=== PATIENT | male | born 1930 | race Caucasian/White ===

== ENCOUNTER 2016-09-18 13:24 | Observation (INO) | payer MEDICARE ==
[2016-09-18 14:18] LABS: BASOPHILS 0.7 % (0.0-2.0); EOSINOPHILS 2.3 % (0.0-6.0); EOSINOPHILS# 0.2 X 10^3uL (0.0-0.4); HEMATOCRIT 37.5 % (42.0-54.0); HEMOGLOBIN 12.5 g/dL (14.0-18.0); LYMPHOCYTES# 0.7 X 10^3uL (0.8-3.8); MEAN CORPUS. HGB CONCENTRATION 33.3 g/dL (32.0-36.0); MEAN PLATELET VOLUME 8.5 fL (7.4-10.4); MONOCYTES 9.7 % (2.0-10.0); MONOCYTES# 0.6 X 10^3uL (0.2-1.0); NEUTROPHILS 77.3 % (54.0-75.0); NEUTROPHILS# 5.2 X 10^3uL (2.6-6.7); PLATELET COUNT 218 X 10^3uL (130-440); RED BLOOD COUNT 4.31 X 10^6uL (4.20-6.10); RED CELL DISTRIBUTION WIDTH 16.5 % (11.5-14.5); WHITE BLOOD COUNT 6.7 X 10^3uL (3.9-10.7)
--- NOTE | 2016-09-18 14:19 | RADIOLOGY REPORT ---
HISTORY: Shortness of breath and cough. COMPARISON: None available. FINDINGS: Single frontal view of the chest obtained. There is bilateral parenchymal consolidation most pronounced in the left lower lobe. No large effusio n or pneumothorax. There has been previous thoracotomy. Cardiac silhouette is within normal limits fo r size and trachea is midline. IMPRESSION: 1. Bilateral parenchymal consolidation. Final Electronic Signature: This report was electronically signed by Jakob Avalos MD on 09/18/2016 2:17 PM. cee /
[2016-09-18 14:35] LABS: BLOOD UREA NITROGEN 31 mg/dL (9-20); CHLORIDE 107 mmol/L (98-107); CREATININE 1.1 mg/dL (0.7-1.3); GLUCOSE 113 mg/dL (70-100); POTASSIUM 4.3 mmol/L (3.5-5.1); SODIUM 141 mmol/L (137-145)
[2016-09-18 14:45] LABS: INR 3.2
[2016-09-18 15:06] LABS: TROPONIN I 0.075 ng/mL (0.00-0.034)
[2016-09-18] MEDS ORDERED: HOME MEDICATION LIST NEEDED 1 EA EACH MC ONE ×2 (16:14)
[2016-09-18] MEDS ORDERED: ACETAMINOPHEN 325 MG TABLET PO PRN (16:14)
[2016-09-18] MEDS ORDERED: FUROSEMIDE 20 MG/2 ML VIAL ONE (16:20)
--- NOTE | 2016-09-18 17:01 | ER PHYSICIAN DOCUMENTATION ---
Physician Documentation [facility] Name:Reddy Mello Age:85 yrs Sex:Male :1930 Arrival Date:09/18/2016 Time:13:24 BedTrauma C Private MD:Mike Bhakta ED, Scott Disposition: 09/18 16:02 Critical Care: not applicable. tx Disposition: 09/18/16 16:05 Admit ordered for Rupali Thompson. Preliminary diagnosis are Hypoxia, CHF (Congestive Heart Failure). - Bed requested for Medical/Surgical. - Condition is Good. - Problem is new. - Symptoms are unchanged. 23 HR OBS No HPI: 15:49 This 85 yrs old Male presents to ER via Private Vehicle with complaints of sc FLU SYMPTOMS, Chest Pain. 15:49 The patient or guardian reports chest pain that is located primarily in the left sc lateral anterior chest. Onset: 2 day(s) ago. The pain does not radiate. The pain has moved or radiated since the onset. with inspiration. Associated signs and symptoms: Pertinent positives: cough, Pertinent negatives: diaphoresis, dizziness, lower extremity pain, lower extremity swelling, lightheadedness, nausea, palpitations, recent travel. The chest pain is described as sharp. Duration: The patient or guardian reports a single episode, that is still ongoing. Historical: - Allergies: PENICILLINS; Ativan; - Home Meds: 1. Metoprolol Tartrate Oral 2. Fish Oil oral 3. Probiotic Complex oral 4. CoQ-10 oral 5. Lasix Oral 6. Lipitor Oral 7. Prednisone Oral 8. warfarin 2.5 mg oral tab 1 tab once daily 9. Zetia Oral 10. aspirin 81 mg oral tab 1 tab once daily - PMHx: hyperlipidemia; heart disease; polymyalgia; - Tetanus: < 10 years. - Ebola Screening: : Patient denies exposure to infectious person. Patient denies travel to an Ebola-affected area in the 21 days before illness onset. . - Immunization history: Flu Vaccine < 1 year. - Social history: Smoking status: Patient states was never smoker of tobacco. Patient uses alcohol but reports only rare drinking. Patient/guardian denies using marijuana. ROS: 15:55 Constitutional: Negative for fever, chills, and weight loss. sc Eyes: Negative for injury, pain, redness, and discharge. ENT: Negative for injury, pain, and discharge. Neck: Negative for injury, pain, and swelling. Abdomen/GI: Negative for abdominal pain, nausea, vomiting, diarrhea, and constipation. Back: Negative for injury and pain. MS/Extremity: Negative for injury and deformity. Skin: Negative for injury, rash, and discoloration. 15:55 Neuro: Negative for headache, weakness, numbness, tingling, and seizure. sc 15:55 Cardiovascular: Positive for chest pain, with cough, with movement. Exam: Head/Face: Normocephalic, atraumatic. Eyes: Pupils equal round and reactive to light, extra-ocular motions intact. Lids and lashes normal. Conjunctiva and sclera are non-icteric and not injected. Cornea within normal limits. Periorbital areas with no swelling, redness, or edema. ENT: Nares patent. No nasal discharge, no septal abnormalities noted. Tympanic membranes are normal and external auditory canals are clear. Oropharynx with no redness, swelling, or masses, exudates, or evidence of obstruction, uvula midline. Mucous membranes moist. Neck: Trachea midline, no thyromegaly or masses palpated, and no cervical lymphadenopathy. Supple, full range of motion without nuchal rigidity, or vertebral point tenderness. No meningismus. Chest/axilla: Normal chest wall appearance and motion. Nontender with no deformity. No lesions are appreciated. Cardiovascular: Regular rate and rhythm with a normal S1 and S2. No gallops, murmurs, or rubs. Normal PMI, no JVD. No pulse deficits. Abdomen/GI: Soft, non-tender, with normal bowel sounds. No distension or tympany. No guarding or rebound. No evidence of tenderness throughout. Back: No spinal tenderness. No costovertebral tenderness. Full range of motion. 15:56 Skin: Warm, dry with normal turgor. Normal color with no rashes, no lesions, and no sc evidence of cellulitis. 15:56 Constitutional: The patient appears alert, awake. 15:56 Respiratory: mild respiratory distress is noted, Respirations: normal, Breath sounds: rhonchi, decreased breath sounds, that are moderate, are heard in the left lower lobe. 16:05 Cardiovascular: Rate: normal, Rhythm: irregularly irregular. sc Vital Signs: 13:25 BP 115 / 64; Pulse 78; Temp 97.4; Pulse Ox 82% on R/A; st 14:40 Pulse Ox 96% on 5 lpm NC; st 15:14 BP 97 / 46; Pulse 74; Resp 17; Pulse Ox 93% on 5 lpm NC; st 15:30 BP 114 / 61; Pulse 74; Resp 21; st 16:00 BP 104 / 59; Pulse 77; Pulse Ox 96% on 5 lpm NC; st 16:30 BP 110 / 59; Pulse 75; Pulse Ox 95% on 5 lpm NC; st MDM: 13:29 Patient medically screened. tx 13:43 ECG:. tx 16:00 Differential diagnosis: abnormal EKG, acute myocardial infarction, costochondritis, sc gastritis, gastroesophageal reflux disease (GERD), mitral valve prolapse, pleurisy, pneumonia. The patient was not given aspirin in the Emergency Department as patient refused. Patient did not receive fibrinolytic due to not indicated. Data reviewed: and as a result, I will admit patient. Data interpreted: youth nutritional monitor: rate is 80 beats/min, rhythm is normal sinus rhythm, atrial fibrillation. 17:15 EKG attached 09/18 14:42 Order name: CBC AUTO DIF, MDIF/RMOR IF IND [facility] 09/18 14:44 Interpretation: Normal Except: HEMATOCRIT 37.5. tx 09/18 14:46 Order name: PROTIME/INR [facility] 09/18 14:47 Interpretation: Abnormal: INR 3.2; anticoagulated. tx 09/18 15:06 Order name: BASIC METABOLIC PANEL [facility] 09/18 15:35 Interpretation: Normal Except: BLOOD UREA NITROGEN 31. tx 09/18 15:06 Order name: BNP,NT-PRO [facility] 09/18 15:35 Interpretation: Abnormal: BNP,NT-PRO 5390. tx 09/18 15:06 Order name: TROPONIN I [facility] 09/18 15:35 Interpretation: Abnormal: TROPONIN I 0.075. tx 09/18 15:18 Order name: INFLUENZA A/B; Complete Time: 15:35 [facility] 09/18 15:35 Interpretation: Normal. tx 09/18 14:19 Order name: CHEST; SINGLE VIEW 22443; Complete Time: 14:46 [facility] 09/18 14:46 Interpretation: Abnormal. tx 09/18 13:40 Order name: Oxygen; Complete Time: 13:43 st 09/18 13:47 Order name: 12-lead EKG; Complete Time: 13:58 tx 09/18 13:47 Order name: Continuous Cardiac Monitoring; Complete Time: :58 tx 09/18 13:47 Order name: I & O; Complete Time: 14:20 tx 09/18 13:47 Order name: Iv Saline Lock; Complete Time: 14:23 tx 09/18 13:47 Order name: Pulse Ox Continuous; Complete Time: :58 tx EC:43 Rate is 80 beats/min. Rhythm is irregularly irregular, A fib with Left bundle branch sc block. QRS [place] is Normal. [place] interval is normal. QRS interval is prolonged. QT interval is normal. No Q waves. T waves are Normal. No ST changes noted. Clinical impression: Atrial Fibrillation. Interpreted by me. Reviewed by me. Dispensed Medications: 14:21 CANCELLED (wrong pt): oxyCODONE [address] 16:12 Drug: Lasix 20 mg; Route: IVP; Site: left antecubital; st 16:46 Follow up: pt urinating st Signatures: Ralph Fragoso RN RN tg Twombly, Summer, RN RN st Chew, Scott, MD MD tx
--- NOTE | 2016-09-18 17:01 | ER NURSING DOCUMENTATION ---
Nurse's Notes Name:Reddy Mello Age:85 yrs Sex:Male :1930 Arrival Date:09/18/2016 Time:13:24 BedTrauma C Private MD:Mike Bhakta Diagnosis:Hypoxia;CHF (Congestive Heart Failure) Presentation: 09/18 13:25 Presenting complaint: Patient states: pt has had a cough, lack of energy and SOB st increasing since Thursday. pt also states he has some left sided pain with cough. Transition of care: Home. AIR CAT ACTIVATION no. Asprin Given n/a. 13:25 Method Of Arrival: Private Vehicle st 13:26 Acuity: RADHA 2 st Triage Assessment: 13:25 General: Appears uncomfortable, Behavior is cooperative. Pain: Complains of pain in st left breast Pain currently is 1 out of 10 on a pain scale. Pain began 5 days worst with cough. Cardiovascular: Capillary refill < 3 seconds Heart tones present Murmur present. Respiratory: Airway is patent Respiratory effort is even, unlabored, Respiratory pattern is regular, symmetrical, Breath sounds are clear bilaterally. Historical: - Allergies: PENICILLINS; Ativan; - Home Meds: 1. Metoprolol Tartrate Oral 2. Fish Oil oral 3. Probiotic Complex oral 4. CoQ-10 oral 5. Lasix Oral 6. Lipitor Oral 7. Prednisone Oral 8. warfarin 2.5 mg oral tab 1 tab once daily 9. Zetia Oral 10. aspirin 81 mg oral tab 1 tab once daily - PMHx: hyperlipidemia; heart disease; polymyalgia; - Tetanus: < 10 years. - Ebola Screening: : Patient denies exposure to infectious person. Patient denies travel to an Ebola-affected area in the 21 days before illness onset. . - Immunization history: Flu Vaccine < 1 year. - Social history: Smoking status: Patient states was never smoker of tobacco. Patient uses alcohol but reports only rare drinking. Patient/guardian denies using marijuana. Screenin:25 Infectious Disease Risk None. Abuse screen: Denies threats or abuse. Denies injuries st from another. Nutritional screening: No deficits noted. Assessment: 15:13 General: pt resting quietly. Pt denies having any pain.. st 16:12 General: pt resting quietly. . st Vital Signs: 13:25 BP 115 / 64; Pulse 78; Temp 97.4; Pulse Ox 82% on R/A; st 14:40 Pulse Ox 96% on 5 lpm NC; st 15:14 BP 97 / 46; Pulse 74; Resp 17; Pulse Ox 93% on 5 lpm NC; st 15:30 BP 114 / 61; Pulse 74; Resp 21; st 16:00 BP 104 / 59; Pulse 77; Pulse Ox 96% on 5 lpm NC; st 16:30 BP 110 / 59; Pulse 75; Pulse Ox 95% on 5 lpm NC; st ED Course: 13:25 Patient arrived in ED. ama 13:25 Mike Bhakta MD is Private Physician. ama 13:25 Valuables Remains with patient Patient has correct armband on for positive st identification. Placed in gown. Bed in low position. site monitor on. Pulse ox on. NIBP on. 13:26 Lisset Unger RN is Primary Nurse. st 13:[address] 13:29 Keith Ramirez MD is Attending Physician. sc 13:32 EKG done. (by ED staff). Reviewed by Keith Ramirez MD. tg 13:32 EKG done per protocol. Performed by ED Staff. Shown to ED physician. st 13:40 Oxygen Oxygen administration via nasal cannula @ 5L/min. st 13:[address] 13:50 Port Xray Completed. hz 14:00 Inserted peripheral IV: 20 gauge in left antecubital area and blood collected. st 16:02 Rupali Thompson MD is Admitting Physician. sc 16:[address] 17:15 EKG attached tg Administered Medications: 14:21 CANCELLED (wrong pt): oxyCODONE [address] 16:12 Drug: Lasix 20 mg; Route: IVP; Site: left antecubital; st 16:46 Follow up: pt urinating st Intake: Output: 16:59 Urine: 300ml (Voided); Total: 300ml. st Outcome: 16:05 Decision to Admit by Provider. sc 17:00 Admitted to Med/surg accompanied by nurse, via stretcher, with oxygen. st 17:00 Condition: stable 17:00 Instructed on need to admit 17:00 Report given to Annika OLIVER st 17:00 Patient left the ED. st Signatures: FragosoRalph RN RN tg Twombly, Summer, RN RN st Chew, Scott, MD MD sc Terriere, Tracy tt Averdick, Andrew, Jay [facility] Diane Morejon
[2016-09-18] MEDS ORDERED: ONDANSETRON HCL 4 MG/2 ML VIAL IV PRN (17:39)
--- NOTE | 2016-09-18 18:16 | DC SUMMARY: IM Note ---
Discharge Summary: IM/Peds Provider: Date of Admission: 09/18/16 Admitting Provider: GEETHA BARKSDALE MD Attending Provider: GEETHA BARKSDALE MD Discharging Provider: GEETHA BARKSDALE MD Primary Care Provider: Discharge Date: 09/18/16 - Diagnosis (1) CHF (congestive heart failure), NYHA class IV Status: Acute Qualifiers: Congestive heart failure type: systolic Congestive heart failure chronicity: acute on chronic Qualified Code(s): I50.23 - Acute on chronic systolic (congestive) heart failure Hospital Course: Patient was admitted from the ER with a history of vomiting on Thursday night after eating a corned beef sandwich, followed by steadily increasing shortness of breath, anterior upper chest pressure and orthopnea. He slept in his recliner for three days, and then came to the ER this afternoon. In the ER he had mildly elevated troponin at 0.075, BNP of around 5900, a LBBB on EKG, and bilateral "consolidations" on chest xray. D-Dimer was mildly elevated at 278. Patient was afebrile, mildly hypotensive. He reported a poor appetite for several days, no fever, chills or diarrhea. There is an extensive cardiac history, to include moderate aortic stenosis, CAD with 2v CABG in 2012, valvuloplasty of the mitral valve 2013, with moderate mitral insufficiency, and severe pulmonary hypertension without RV dilation. During my evaluation to admit the patient, a second troponin was reported at 0.086, and I compared his current EKG to one from May, and noted that there were flipped T-waves in the septal leads, and possible mild ST elevation, although the EKG from the ER has a wandering baseline. Patient has not responded to a dose of IV lasix in the ER with any significant urinary output. Therefore, he has increasing troponin levels, CHF and changes in his EKG from baseline. Given all of these findings, he is felt to be unstable to keep at [facility], particularly since he is states clearly that he is a full code in spite of all of his medical issues. - Time Spent with Patient Total time spent providing and/or coordinating discharge services: Discharge - Patient/Caregiver Discharge Instructions Activity Level: As tolerated Diet: Cardiac Overall discharge status: patient is not back to baseline Disposition: [facility] Discharge Summary Data - Medication History Medication History: Home Medications Atorvastatin Calcium [Lipitor*] 40 mg PO HS 09/18/16 Calcium Carbonate [Tums X-Str] 600 mg PO PRN PRN 09/18/16 Cholecalciferol [Vitamin D*] 2,000 unit PO DAILY 09/18/16 Cyanocobalamin [VITAMIN B-12*] 1,000 mcg PO DAILY 09/18/16 Furosemide [Lasix*] 40 mg PO DAILY 09/18/16 Multivitamins,Therapeutic [Thera] 1 tab PO DAILY 09/18/16 Buckner-3 Fatty Acids/Fish Oil [Fish Oil 1,000 mg Softgel] 1,000 mg PO DAILY 09/18 Potassium Chloride [Potassium Chloride] 8 meq PO BID 09/18/16 Probiotic [Sophia-Q Capsule] 1 cap PO DAILY 09/18/16 Ubidecarenone [Coenzyme Q10] 400 mg PO DAILY 09/18/16 Warfarin Sodium [Coumadin*] 2.5 mg PO ONCE DAILY @1600 09/18/16 Zetia 10 mg PO HS 09/18/16 aspirin [Ecotrin] 81 mg PO HS 09/18/16 metoprolol TARTRATE [Metoprolol Tartrate*] 25 mg PO BID 09/18/16 prednisone [Prednisone*] 6 mg PO DAILY 09/18/16 Inpatient Medications 09/18/16 17:39 Ondansetron HCl [Zofran] 4 mg IV Q6H PRN 09/18/16 21:00 Atorvastatin Calcium [Lipitor] 40 mg PO HS Furosemide [Lasix Inj] 40 mg IV BID Potassium Chloride [Potassium Chloride] 8 meq PO BID Zetia 10 mg PO HS aspirin EC [Ecotrin 81 mg] 81 mg PO HS metoprolol TARTRATE [Lopressor] 25 mg PO BID 09/19/16 09:00 Cholecalciferol [Vitamin D3] 2,000 unit PO DAILY Cyanocobalamin [Vitamin B12] 1,000 mcg PO DAILY Multivitamins,Therapeutic [Thera] 1 tab PO DAILY Buckner-3 Fatty Acids/Fish Oil [Fish Oil 1,000 mg Softgel] 1,000 mg PO DAILY Ubidecarenone [Coenzyme Q10] 400 mg PO DAILY prednisone [Deltasone] 6 mg PO DAILY 09/19/16 16:00 Warfarin Sodium [Coumadin] 2.5 mg PO ONCE DAILY @1600 Procedures and tests throughout hospitalization: Pending Orders 09/18/16 17:39 Ondansetron HCl [Zofran] 4 mg IV Q6H PRN 09/18/16 21:00 Atorvastatin Calcium [Lipitor] 40 mg PO HS Furosemide [Lasix Inj] 40 mg IV BID Potassium Chloride [Potassium Chloride] 8 meq PO BID Zetia 10 mg PO HS aspirin EC [Ecotrin 81 mg] 81 mg PO HS metoprolol TARTRATE [Lopressor] 25 mg PO BID 09/19/16 09:00 Cholecalciferol [Vitamin D3] 2,000 unit PO DAILY Cyanocobalamin [Vitamin B12] 1,000 mcg PO DAILY Multivitamins,Therapeutic [Thera] 1 tab PO DAILY Buckner-3 Fatty Acids/Fish Oil [Fish Oil 1,000 mg Softgel] 1,000 mg PO DAILY Ubidecarenone [Coenzyme Q10] 400 mg PO DAILY prednisone [Deltasone] 6 mg PO DAILY 09/19/16 16:00 Warfarin Sodium [Coumadin] 2.5 mg PO ONCE DAILY @1600 IM: Discharge Physical Exam - I&O/Vital Signs I&O: Intake & Output 09/18/16 09/18/16 09/18/16 05:59 13:59 21:59 Weight 66.678 kg - Constitutional General appearance: Present: average body habitus - Head Head exam: Present: normal inspection - Eye Eye exam: Present: EOMI Pupils: Present: PERRL - ENT ENT exam: Present: mucous membranes moist - Neck Neck exam: Present: full ROM, normal inspection - Respiratory Respiratory exam: Present: decreased breath sounds (bilateral bases). Absent: chest wall tenderness, rhonchi, wheezes - Cardiovascular Cardiovascular exam: Present: RRR (throughout the precordium, high pitched). Absent: systolic murmur - GI/Abdominal GI/Abdominal exam: Present: distended, firm, hypoactive bowel sounds. Absent: pulsatile mass, tenderness - Extremities Exam Extremities exam: Absent: calf tenderness, edema, tenderness - Neurological Exam Neurological exam: Present: alert, CN II-XII intact, oriented X3, reflexes normal - Psychiatric Psychiatric exam: Present: normal affect - Allied Health Notes Allied health notes reviewed: nursing
[2016-09-18] MEDS ORDERED: NITROGLYCERIN OINT 1 GM PACKET ONE (18:35)
[2016-09-18] MEDS ORDERED: NITROGLYCERIN OINT 1 GM PACKET TOPICAL SCH (19:00)
[2016-09-18] MEDS ORDERED: FUROSEMIDE 40 MG/4 ML VIAL IV SCH (21:00)
[2016-09-18] MEDS ORDERED: ATORVASTATIN CALCIUIM 40 MG TABLET PO SCH (21:00)
[2016-09-18] MEDS ORDERED: POTASSIUM CHLORIDE 8 MEQ PO SCH (21:00)
[2016-09-19] MEDS ORDERED: FISH OIL PO SCH (09:00)
[2016-09-19] MEDS ORDERED: CYANOCOBALAMIN 1,000 MCG TABLET PO SCH (09:00)
[2016-09-19] MEDS ORDERED: FATTY ACIDS PO SCH (09:00)
[2016-09-19] MEDS ORDERED: MULTIVITAMINS THERAPEUTIC 1 TABLET PO SCH (09:00)
[2016-09-19] MEDS ORDERED: OMEGA PO SCH (09:00)
[2016-09-19] MEDS ORDERED: CHOLECALCIFEROL 1,000 UNIT CAPSULE PO SCH (09:00)
[2016-09-19] MEDS ORDERED: UBIDECARENONE 400 MG PO SCH (09:00)
[2016-09-19] MEDS ORDERED: WARFARIN SODIUM 2.5 MG TABLET PO SCH (16:00)
== END 2016-09-18 18:19 | disposition short-term general hospital (02) ==
LOC: ER 13:24 → IN 16:51
PROVIDERS: ADMIT Internal Medicine; ATTEND Internal Medicine
DX: R07.89 Other chest pain (principal); R09.02 Hypoxemia; I50.23 Acute on chronic systolic (congestive) heart failure; R94.31 Abnormal electrocardiogram [ECG] [EKG]; Z95.2 Presence of prosthetic heart valve; Z95.5 Presence of coronary angioplasty implant and graft; Z79.899 Other long term (current) drug therapy; Z74.3 Need for continuous supervision
CPT/HCPCS: 36415; 71010; 80048; 83880; 84484; 85025; 85379; 85610; 87040; 87077; 87186; 87449; 93005; 93010; 93041; 96374; 99234; 99285; A0425; A0427; G0378; J1940

== ENCOUNTER 2016-10-01 12:03 | Emergency (ER) | payer MEDICARE ==
[2016-10-01] MEDS ORDERED: PHENYLEPHRINE 1% NASAL 15 SPRAYS/15 ML BTL NASAL ONE (12:24)
--- NOTE | 2016-10-01 13:24 | ER NURSING DOCUMENTATION ---
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 tg Transition of care: patient was not received from another setting of care. 12:05 Method Of Arrival: Private Vehicle tg 12:07 Acuity: RADHA 3 tg Triage Assessment: 12:10 General: Appears in no apparent distress, Behavior is cooperative. Pain: Denies pain. tg EENT: Nares with bleeding noted on left. Neuro: Level of Consciousness is awake, alert, Oriented to. Respiratory: Respiratory effort is even, unlabored. Historical: - Allergies: PENICILLINS; Ativan; - Home Meds: 1. Metoprolol Tartrate Oral 2. Fish Oil oral 3. Probiotic Complex oral 4. CoQ-10 oral 5. Lasix Oral 6. Lipitor Oral 7. Prednisone Oral 8. warfarin 2.5 mg oral tab 1 tab once daily 9. Zetia Oral 10. aspirin 81 mg oral tab 1 tab once daily - PMHx: Hypoxia (September 18, 2016); CHF (Congestive Heart Failure)(September 18, 2016); polymyalgia; heart disease; - PSHx: valve replacement; - Tetanus: unknown. - Ebola Screening: : Patient negative for fever greater than or equal to 101.5 degrees Fahrenheit, and additional compatible Ebola Virus Disease symptoms. Patient denies exposure to infectious person. Patient denies travel to an Ebola-affected area in the 21 days before illness onset. No symptoms or risks identified at this time. . - Immunization history: Flu Vaccine unknown. - Social history: Smoking status: Patient states was never smoker of tobacco. Screenin:11 Infectious Disease Risk Unable to Obtain. Abuse screen: Denies threats or abuse. Denies tg injuries from another. Nutritional screening: No deficits noted. Vital Signs: 12:00 BP 126 / 63; Pulse 84; Resp 16; Temp 98(TE); Pulse Ox 90% on R/A; Pain 0/10; tg ED Course: 12:05 Patient arrived in ED. lm3 12:05 Mike Bhakta MD is Private Physician. lm3 12:07 Ralph Fragoso, RN is Primary Nurse. tg 12:07 Triage completed. tg 12:10 Nosebleed Care Nasal Clamp Applied. tg 12:20 Assist Provider Assist provider with nosebleed control using Afrin sprays, direct tg pressure, nasal clamp, Bleeding from left nare. Set up for procedure. Performed by Tray Rojas MD Bleeding stopped. Patient tolerated well. anterior cotton ball. 12:22 Tray Rojas MD is Attending Physician. cd 13:11 Valuables Remains with patient. tg Administered Medications: 12:30 Drug: Son-Synephrine [place] 0.5 % 1 sprays; Route: Intranasal; Site: both nares; tg 13:07 Follow up: Response: nosebleed resolved tg Outcome: 13:11 Discharge ordered by . cd 13:23 Discharged to home ambulatory, with family. tg 13:23 Condition: stable 13:23 Discharge Assessment: Patient awake, alert and oriented x 3. No cognitive and/or functional deficits noted. Patient verbalized understanding of disposition instructions. 13:23 Instructed on discharge instructions, follow up and referral plans. Nosebleed care 13:24 Patient left the ED. tg Signatures: Ralph Fragoso RN RN tg Tray Rojas MD MD cd Ashli Gillespie lm3
--- NOTE | 2016-10-01 13:24 | ER PHYSICIAN DOCUMENTATION ---
Physician Documentation [facility] Name:Reddy Mello Age:85 yrs Sex:Male :1930 Arrival Date:10/01/2016 Time:12:03 Bed2 Private MD:Mike Bhakta ED, Chris Disposition: 10/01/16 13:11 Discharged to Home/Self Care. Impression: Anterior Epistaxis. - Condition is Good. - Discharge Instructions: EPISTAXIS (Adult), NASAL PACKING, Anterior (Removable). - Medical Reconciliation form form. - Follow up: Emergency Department; When: 10/04/2016; Reason: Recheck today's complaints, Continuance of care. - Problem is new. - Symptoms are resolved. - Notes: Return in 3 days for packing removal. Drink plenty of fluids. HPI: 10/01 12:30 This 85 yrs old Male presents to ER via Private Vehicle with complaints of cd Nose Bleed. 12:30 The patient presents with a nose bleed, that is apparently anterior, from the left cd nare, occurred dry air, spontaneously, that is small amount with clots, stopped /dried blood noted. Onset: The symptom(s)/episode began/occurred acutely, 1 hour(s) ago. Associated signs and symptoms: The patient has no apparent associated signs or symptoms. Severity of symptoms: At their worst the symptoms were mild in the emergency department the symptoms are unchanged. The patient has experienced similar episodes in the past, and the symptoms today are exactly the same. Historical: - Allergies: PENICILLINS; Ativan; - Home Meds: 1. Metoprolol Tartrate Oral 2. Fish Oil oral 3. Probiotic Complex oral 4. CoQ-10 oral 5. Lasix Oral 6. Lipitor Oral 7. Prednisone Oral 8. warfarin 2.5 mg oral tab 1 tab once daily 9. Zetia Oral 10. aspirin 81 mg oral tab 1 tab once daily - PMHx: Hypoxia (September 18, 2016); CHF (Congestive Heart Failure)(September 18, 2016); polymyalgia; heart disease; - PSHx: valve replacement; - Tetanus: unknown. - Ebola Screening: : Patient negative for fever greater than or equal to 101.5 degrees Fahrenheit, and additional compatible Ebola Virus Disease symptoms. Patient denies exposure to infectious person. Patient denies travel to an Ebola-affected area in the 21 days before illness onset. No symptoms or risks identified at this time. . - Immunization history: Flu Vaccine unknown. - Social history: Smoking status: Patient states was never smoker of tobacco. ROS: 13:12 Constitutional: Negative for chills, fever, poor PO intake. cd 13:12 ENT: Positive for nose bleed, Negative for rhinorrhea, sinus congestion, sinus pain, sore throat. 13:12 All other systems are negative. Exam: 13:12 Eyes: Pupils equal round and reactive to light, extra-ocular motions intact. Lids and cd lashes normal. Conjunctiva and sclera are non-icteric and not injected. Cornea within normal limits. Periorbital areas with no swelling, redness, or edema. 13:12 Neck: Trachea midline, no thyromegaly or masses palpated, and no cervical cd lymphadenopathy. Supple, full range of motion without nuchal rigidity, or vertebral point tenderness. No Meningismus. 13:12 Constitutional: The patient appears in no acute distress, alert, awake, well developed, well nourished. 13:12 ENT: Nose: bleeding, is seen from the left nare, and is minimal, clotted blood, in left nare. Vital Signs: 12:00 BP 126 / 63; Pulse 84; Resp 16; Temp 98(TE); Pulse Ox 90% on R/A; Pain 0/10; tg Procedures: 13:12 Epistaxis treatment: A small amount of bleeding noted from left nare. Treated using cd Oxymetazoline sprays, nasal clamp, rhino rocket, Bleeding stopped. MDM: 12:22 Patient medically screened. cd 13:12 Differential diagnosis: spontaneous epistaxis. Data reviewed: vital signs, nurses cd notes, old medical records, and as a result, I will discharge patient. Data interpreted: Pulse oximetry: on room air is 90 %. Interpretation: normal. 13:15 Counseling: I had a detailed discussion with the patient and/or guardian regarding: the cd historical points, exam findings, and any diagnostic results supporting the discharge/admit diagnosis, lab results, the need for outpatient follow up, for a recheck, with the patient's primary care provider, to return to the emergency department if symptoms worsen or persist or if there are any questions or concerns that arise at home. Response to treatment: the patient's symptoms have resolved after treatment, the patient's condition has returned to base line, and as a result, I will discharge patient. 10/01 12:15 Order name: INR W/ CAPI DRAW; Complete Time: 12:58 EDMS 10/03 12:58 Interpretation: Abnormal: INR W/ CAPI DRAW 2.6; Patient on Coumadin. In Therapeutic cd Range. Dispensed Medications: 12:30 Drug: Son-Synephrine [place] 0.5 % 1 sprays; Route: Intranasal; Site: both nares; tg 13:07 Follow up: Response: nosebleed resolved tg Signatures: Ralph Fragoso RN RN tg Tray Rojas MD MD cd
== END 2016-10-01 13:24 | disposition home or self-care (01) ==
LOC: ER 12:03
DX: R04.0 Epistaxis (principal); I51.9 Heart disease, unspecified; I50.9 Heart failure, unspecified; Z79.01 Long term (current) use of anticoagulants; Z79.82 Long term (current) use of aspirin; Z79.899 Other long term (current) drug therapy
CPT/HCPCS: 30901; 30903; 85610; 99283

== ENCOUNTER 2016-10-04 14:35 | Emergency (ER) | payer MEDICARE ==
--- NOTE | 2016-10-04 15:07 | ER NURSING DOCUMENTATION ---
Nurse's Notes [facility] Name:Reddy Mello Age:85 yrs Sex:Male :1930 Arrival Date:10/04/2016 Time:14:35 Bed2 Private MD:Mike Bhakta Diagnosis:Epistaxis - Nose Bleed Assessment: 10/04 15:05 General: no bleeding noted after packing removed. . st Vital Signs: 15:04 Pulse 79; Pulse Ox 89% on R/A; Pain 0/10; st ED Course: 14:37 Patient arrived in ED. ama 14:37 Mike Bhakta MD is Private Physician. ama 15:04 Lisset Unger, RN is Primary Nurse. st 15:[address] Administered Medications: No medications were administered Outcome: 15:05 Discharged to home ambulatory. st 15:05 Condition: improved 15:05 Discharge instructions given to patient, Instructed on Nosebleed care 15:06 Discharge ordered by MD. st 15:06 Patient left the ED. st 10/05 12:22 Discharge F/U Call: Unable to reach: no answer gianni Signatures: Lisset Unger RN Vira Stephen RN RN Marc Hansen, Reg Reg ama
== END 2016-10-04 15:07 | disposition home or self-care (01) ==
LOC: ER 14:35
DX: R04.0 Epistaxis (principal); Z48.00 Encounter for change or removal of nonsurgical wound dressing
CPT/HCPCS: 99281

== ENCOUNTER 2016-10-11 14:56 | Emergency (ER) | payer MEDICARE ==
[2016-10-11] MEDS ORDERED: ONDANSETRON ODT 4 MG TAB.RAPDIS ONE (16:17)
--- NOTE | 2016-10-11 17:50 | ER PHYSICIAN DOCUMENTATION ---
Physician Documentation [facility] Name:Reddy Mello Age:85 yrs Sex:Male :1930 Arrival Date:10/11/2016 Time:14:56 Bed1 Private MD:Mike Bhakta EDpetraYemi Disposition: 10/12 15:05 Chart complete. tl1 Disposition: 10/11/16 17:28 Discharged to Home/Self Care. Impression: Leg Laceration, Except Thigh, w/o Complication. - Condition is Good. - Discharge Instructions: Abrasion - LACERATION, EXTREMITY, SUTURE OR TAPE (Child). - Medical Reconciliation form form. - Follow up: Mike Bhakta MD; When: 2 - 3 days; Reason: Recheck today's complaints, Continuance of care. - Problem is new. - Symptoms have improved. HPI: 10/11 15:35 This 85 yrs old Male presents to ER via Private Vehicle with complaints of tl1 Laceration To Leg - L. 15:35 The laceration(s) is(are) located on the left fofana. tl1 15:36 This occurred 17 hours ago when he scraped his fofana on the sharp corner of his coffee tl1 table at home. Thre was fairly brisk bleeding and this was bandaged with paper towels which were left in place until now. He is currently on coumadin. The bleeding has stopped. No dizziness.. Historical: - Allergies: PENICILLINS; Ativan; - Home Meds: 1. Metoprolol Tartrate Oral 2. Fish Oil oral 3. Probiotic Complex oral 4. CoQ-10 oral 5. Lasix Oral 6. Lipitor Oral 7. Prednisone Oral 8. warfarin 2.5 mg oral tab 1 tab once daily 9. Zetia Oral 10. aspirin 81 mg oral tab 1 tab once daily - PMHx: CHF (Congestive Heart Failure)(September 18, 2016); polymyalgia; heart disease; - PSHx: valve replacement; - Tetanus: < 10 years. - Ebola Screening: : Patient denies exposure to infectious person. Patient denies travel to an Ebola-affected area in the 21 days before illness onset. . - Immunization history: UTD ON TETANUS LAST DECEMBER. - Social history: Smoking status: Patient states was never smoker of tobacco. Patient uses alcohol occasionally. Patient/guardian denies using marijuana. ROS: 16:30 Skin: Positive for laceration(s). tl1 16:30 All other systems are negative. Exam: 16:30 Musculoskeletal/extremity: Extremities: grossly normal except: noted in the left fofana: tl1 laceration, ROM: no acute changes, Perfusion: the extremity is pink, warm, with brisk capillary refill, Sensation intact. 16:30 Constitutional: This is a well developed, well nourished patient who is awake, alert, and in no acute distress. 16:30 Cardiovascular: Rate: normal. 16:30 Respiratory: Respirations: normal. 16:30 Skin: injury, abrasion(s), laceration(s), the wound is approximately 7 cm(s), with a depth of 0.5 cm(s), that can be described as clean, linear, without bleeding. 16:30 Neuro: grossly normal. Vital Signs: 15:14 BP 113 / 59; Pulse 72; Temp 97.5; Pulse Ox 93% on R/A; Pain 1/10; st Laceration: 16:30 Wound Repair of 7cm ( 2.8in ) subcutaneous laceration to left fofana. Distal tl1 neuro/vascular/tendon intact. Anesthesia: Wound infiltrated with 5 mls of 0.5% marcaine. Wound prep: Extensive cleansing with hibiclenz, Copious irrigation. Skin closed with 3-0 Ethilon using Interrupted sutures. Dressed with Bacitracin, 4x4's. Patient tolerated well. MDM: 15:35 Patient medically screened. tl1 16:30 Differential diagnosis: superficial laceration. Data reviewed: vital signs, nurses tl1 notes, and as a result, I will discharge patient. Counseling: I had a detailed discussion with the patient and/or guardian regarding: the historical points, exam findings, and any diagnostic results supporting the discharge/admit diagnosis, the need for outpatient follow up, to return to the emergency department if symptoms worsen or persist or if there are any questions or concerns that arise at home. Special discussion: I discussed in detail with the patient the higher chance of wound infection based on his presenting history. 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 This is a clean laceration. I think closing this laceration will only mildly increase the risk of infection. There is a fair amount of tension on this and it is gaping 1 cm in the middle. Not closing it will likely lead to a prolonged healing time and it is probably worth trying to close it. If watched closely, the wound can be opened up if it does become infected. I opened up the laceration, cleaned out the blood clot and irrigated this copiously with sterile NS prior to closing it with 3-0 nylon. There was no significant bleeding. I asked him to leave the dressing in place and get it rechecked by Dr Bhakta in 2 days. Return here sooner for fever, increasing pain or spreading redness, persistent bleeding, or if worse in any way.. Dispensed Medications: 16:07 Drug: Zofran 4 mg; Route: PO; st 17:49 Follow up: Response: Nausea is decreased st Signatures: Lisset Unger, RN RN Yemi Colin MD MD tl1
--- NOTE | 2016-10-11 17:50 | ER NURSING DOCUMENTATION ---
Nurse's Notes [facility] Name:Reddy Mello Age:85 yrs Sex:Male :1930 Arrival Date:10/11/2016 Time:14:56 Bed1 Private MD:Mike Bhakta Diagnosis:Leg Laceration, Except Thigh, w/o Complication Presentation: 10/11 15:10 Presenting complaint: Patient states: pt walked into a chair last night at 9PM and cut st his left fofana. Transition of care: Home. Complicating Factors: There are no complicating factors for this patient. 15:10 Acuity: RADHA 4 st 15:10 Method Of Arrival: Private Vehicle st 15:10 Method Of Arrival: Private Vehicle st Triage Assessment: 15:12 General: Appears in no apparent distress, Behavior is cooperative. Pain: Complains of st pain in left fofana Pain currently is 1 out of 10 on a pain scale. Cardiovascular: No deficits noted. Respiratory: No deficits noted. GI: No deficits noted. Injury Description: Laceration sustained to right fofana is 2.6 to 7.5 cm long, bleeding moderately, was sustained 12-24 hours ago. is bleeding moderately. Historical: - Allergies: PENICILLINS; Ativan; - Home Meds: 1. Metoprolol Tartrate Oral 2. Fish Oil oral 3. Probiotic Complex oral 4. CoQ-10 oral 5. Lasix Oral 6. Lipitor Oral 7. Prednisone Oral 8. warfarin 2.5 mg oral tab 1 tab once daily 9. Zetia Oral 10. aspirin 81 mg oral tab 1 tab once daily - PMHx: CHF (Congestive Heart Failure)(September 18, 2016); polymyalgia; heart disease; - PSHx: valve replacement; - Tetanus: < 10 years. - Ebola Screening: : Patient denies exposure to infectious person. Patient denies travel to an Ebola-affected area in the 21 days before illness onset. . - Immunization history: UTD ON TETANUS LAST DECEMBER. - Social history: Smoking status: Patient states was never smoker of tobacco. Patient uses alcohol occasionally. Patient/guardian denies using marijuana. Screenin:15 Infectious Disease Risk None. Abuse screen: Denies threats or abuse. Denies injuries st from another. pt feels safe at home. Nutritional screening: No deficits noted. Vital Signs: 15:14 BP 113 / 59; Pulse 72; Temp 97.5; Pulse Ox 93% on R/A; Pain 1/10; st ED Course: 14:59 Patient arrived in ED. ama 14:59 Mike Bhakta MD is Private Physician. ama 15:10 Lisset Unger RN is Primary Nurse. st 15:[address] 15:15 Valuables Remains with patient. st 15:35 Yemi Tello MD is Attending Physician. tl1 15:36 Wound care was cleaned with soap and water. st 16:07 Wound care was Irrigation Normal Saline. st 16:50 Assist Provider Assist provider with laceration repair on left fofana using sutures. Set st up tray. Performed by Yemi Tello MD. 17:27 Mike Bhakta MD is Referral Physician. tl1 17:33 Wound care was dressed with bacitracin cling, Telfa. st Administered Medications: 16:07 Drug: Zofran 4 mg; Route: PO; st 17:49 Follow up: Response: Nausea is decreased st Outcome: 17:28 Discharge ordered by . tl1 17:48 Discharged to home ambulatory. st 17:48 Condition: improved 17:48 Discharge instructions given to patient, significant other, Instructed on discharge instructions, follow up and referral plans. wound care. 17:50 Patient [address] the ED. st 0402 10:05 Discharge F/U Call: Unable to reach: no answer nf Signatures: Lisset Unger RN RN st Friel, Nicole, RN RN nf Averdick, Andrew, Reg Reg Yemi Correia MD MD tl1
== END 2016-10-11 17:50 | disposition home or self-care (01) ==
LOC: ER 14:56
DX: S81.812A Laceration without foreign body, left lower leg, initial encounter (principal); W22.03XA Walked into furniture, initial encounter; Y92.019 Unspecified place in single-family (private) house as the place of occurrence of the external cause; Y93.01 Activity, walking, marching and hiking; Z79.01 Long term (current) use of anticoagulants; I50.9 Heart failure, unspecified; Z95.4 Presence of other heart-valve replacement; Z79.899 Other long term (current) drug therapy
CPT/HCPCS: 12002; 12032; 99282; 99284

== ENCOUNTER 2016-10-20 09:12 | Emergency (ER) | payer MEDICARE ==
[2016-10-20 09:38] LABS: BASOPHIL# 0.2 X 10^3uL (0.0-0.1); BASOPHILS 2.6 % (0.0-2.0); EOSINOPHILS 3.9 % (0.0-6.0); EOSINOPHILS# 0.2 X 10^3uL (0.0-0.4); HEMATOCRIT 31.2 % (42.0-54.0); HEMOGLOBIN 10.5 g/dL (14.0-18.0); LYMPHOCYTES 25.8 % (20.0-40.0); LYMPHOCYTES# 1.6 X 10^3uL (0.8-3.8); MEAN CELL VOLUME 87.9 fL (80.0-100.0); MEAN CORPUS. HGB CONCENTRATION 33.8 g/dL (32.0-36.0); MEAN CORPUSCULAR HEMOGLOBIN 29.7 pg (29.0-35.0); MEAN PLATELET VOLUME 8.9 fL (7.4-10.4); MONOCYTES 14.5 % (2.0-10.0); MONOCYTES# 0.9 X 10^3uL (0.2-1.0); NEUTROPHILS 53.2 % (54.0-75.0); NEUTROPHILS# 3.4 X 10^3uL (2.6-6.7); PLATELET COUNT 218 X 10^3uL (130-440); RED BLOOD COUNT 3.54 X 10^6uL (4.20-6.10); RED CELL DISTRIBUTION WIDTH 15.1 % (11.5-14.5); WHITE BLOOD COUNT 6.3 X 10^3uL (3.9-10.7)
[2016-10-20] MEDS ORDERED: ONDANSETRON ODT 4 MG TAB.RAPDIS ONE (09:43)
[2016-10-20 09:48] LABS: ALBUMIN 4.1 g/dL (3.5-5.0); ALKALINE PHOSPHATASE 74 U/L (38-126); ALT 24 U/L (21-72); AST 52 U/L (17-59); BILIRUBIN, DIRECT 0.2 mg/dL (0.0-0.4); BILIRUBIN, TOTAL 0.8 mg/dL (0.2-1.3); BLOOD UREA NITROGEN 38 mg/dL (9-20); CALCIUM 9.1 mg/dL (8.4-10.2); CHLORIDE 100 mmol/L (98-107); CREATININE 1.4 mg/dL (0.7-1.3); GLUCOSE 132 mg/dL (70-100); MAGNESIUM 2.1 mg/dL (1.6-2.3); SODIUM 136 mmol/L (137-145)
[2016-10-20] MEDS ORDERED: NORMAL SALINE 100 ML IV ONE (09:49)
[2016-10-20 10:00] LABS: TROPONIN I 0.026 ng/mL (0.00-0.034)
[2016-10-20] MEDS ORDERED: DEXTROSE IV ONE ×2 (10:13→10:14)
[2016-10-20] MEDS ORDERED: [UNRECOGNIZED DRUG - OTHER] IV ONE (10:13)
[2016-10-20] MEDS ORDERED: AMIODARONE IV ONE ×2 (10:13→10:14)
[2016-10-20] MEDS ORDERED: [UNRECOGNIZED DRUG - OTHER] IV ONE (10:14)
--- NOTE | 2016-10-20 11:03 | ER PHYSICIAN DOCUMENTATION ---
Physician Documentation [facility] Name:Reddy Mello Age:85 yrs Sex:Male :1930 Arrival Date:10/20/2016 Time:09:13 BedTrauma-C Private MD:Mike Bhakta ED, Tom Disposition: 10/20 10:41 Critical Care:. Chart complete. tl1 Disposition: 10/20/16 11:00 Transfer ordered to [facility]. Diagnosis are Atrial Fibrillation with Rapid Ventricular Response, Chest Pain, Acute Coronary Syndrome. - Reason for transfer: Higher level of care. - Accepting physician is Dr Chip Cruz. - Condition is Serious. - Problem is an acute exacerbation. - Symptoms have improved. COBRA Form completed? Transfer - Mode of Transportation Helicopter HPI: 09:30 This 85 yrs old Male presents to ER via EMS with complaints of Chest Pain and tl1 lightheadedness. 09:30 The patient or guardian reports chest pain that is located primarily in the substernal tl1 area, and Jaw.. Onset: suddenly, this morning, 30 minute(s) ago. The pain radiates to There has been no movement of pain. Associated signs and symptoms: Pertinent positives: diaphoresis, lightheadedness, nausea, shortness of breath. The chest pain is described as a heaviness, a pressure. Duration: The patient or guardian reports a single episode, that is still ongoing. Severity of pain: At its worst the pain was severe. The patient has experienced similar episodes in the past, a few times. Historical: - Allergies: PENICILLINS; Ativan; - Home Meds: 1. Metoprolol Tartrate Oral 2. Fish Oil oral 3. Probiotic Complex oral 4. CoQ-10 oral 5. Lasix Oral 6. Lipitor Oral 7. Prednisone Oral 8. warfarin 2.5 mg oral tab 1 tab once daily 9. Zetia Oral 10. aspirin 81 mg oral tab 1 tab once daily 11. cefazolin IV - PMHx: CHF (Congestive Heart Failure)(September 18, 2016); polymyalgia; heart disease; Leg Laceration, Except Thigh, w/o Complication (October 11, 2016); sepsis; - PSHx: valve replacement; valve replacement; - Tetanus: < 10 years. - Ebola Screening: : Patient negative for fever greater than or equal to 101.5 degrees Fahrenheit, and additional compatible Ebola Virus Disease symptoms. Patient denies exposure to infectious person. Patient denies travel to an Ebola-affected area in the 21 days before illness onset. No symptoms or risks identified at this time. . - Immunization history: Flu Vaccine < 1 year. - Social history: Smoking status: Patient states was never smoker of tobacco. ROS: 10:33 Cardiovascular: Positive for chest pain. tl1 10:33 Respiratory: Positive for shortness of breath. 10:33 All other systems are negative. Exam: 10:33 Head/Face: Normocephalic, atraumatic. tl1 Eyes: Pupils equal round and reactive to light, extra-ocular motions intact. Lids and lashes normal. Conjunctiva and sclera are non-icteric and not injected. Cornea within normal limits. Periorbital areas with no swelling, redness, or edema. ENT: Nares patent. No nasal discharge, no septal abnormalities noted. Tympanic membranes are normal and external auditory canals are clear. Oropharynx with no redness, swelling, or masses, exudates, or evidence of obstruction, uvula midline. Mucous membranes moist. Neck: Trachea midline, no thyromegaly or masses palpated, and no cervical lymphadenopathy. Supple, full range of motion without nuchal rigidity, or vertebral point tenderness. No Meningismus. 10:33 Chest/axilla: Normal chest wall appearance and motion. Nontender with no deformity. tl1 No lesions are appreciated. 10:33 Constitutional: The patient appears alert, awake, well developed, well hydrated, well groomed, well nourished, anxious. 10:33 Cardiovascular: Rate: tachycardic, Rhythm: irregularly irregular, Pulses: Pulses are 2+ in right radial artery and left radial artery. Heart sounds: murmur, systolic, grade 4 over 6, heard in the aortic area, heard in the mitral area, Edema: is not appreciated, JVD: is not appreciated. 10:33 Respiratory: the patient does not display signs of respiratory distress, Respirations: normal, Breath sounds: are normal, no rales, rhonchi, no stridor, no wheezing. 10:33 Abdomen/GI: Inspection: abdomen appears normal, Bowel sounds: normal, Palpation: abdomen is soft and non-tender, mass, is not appreciated, rebound tenderness, is not appreciated, voluntary guarding, is not appreciated. 10:33 Musculoskeletal/extremity: Exam is negative for acute changes. 10:33 Skin: Exam negative for acute changes. 10:33 Neuro: Exam negative for acute changes. Vital Signs: 09:20 BP 122 / 74 (auto/); lpr 09:22 Pulse 153 MON; Resp 19; Pulse Ox 98% ; Pain 3/10; lpr 09:31 BP 94 / 67 (auto/); lpr 09:32 Pulse 127 MON; Resp 24; Pulse Ox 93% ; lpr 09:45 BP 99 / 60 (auto/); lpr 09:47 Pulse 136 MON; Resp 22; Pulse Ox 97% ; lpr 09:49 Weight 63.5 kg; lpr 09:50 BP 83 / 48 (auto/); lpr 09:52 Pulse 129 MON; Resp 24; Pulse Ox 97% ; lpr 09:56 BP 94 / 64 (auto/); lpr 09:57 Pulse 118 MON; Resp 19; Pulse Ox 98% ; lpr 10:00 Temp 97.9(O); lpr 10:02 BP 108 / 69 (auto/); lpr 10:02 Pulse 121 MON; Resp 21; Pulse Ox 96% ; Pain 3/10; lpr MDM: 09:16 Patient medically screened. tl1 10:12 EKG attached lpr 10:36 Differential diagnosis: abnormal EKG, acute myocardial infarction, acute pericarditis, tl1 anxiety, coronary artery disease esophagitis, gastritis, myocarditis, pericarditis, pulmonary embolus, thoracic aortic disection, unstable angina. Patient took aspirin per EMS prior to arrival. SMITH Risk Score: 1 - patient's age is greater or equal to 65 years, 1 - Three or more CAD risk factors, 1- Known CAD, 1 - ASA use in past 7 days, 1 - Elevated Cardiac Markers, TOTAL SCORE = 5. Data reviewed: vital signs, nurses notes, diagnostic data from outside facility, old medical records, lab test result(s), EKG, radiologic studies, plain films, and as a result, I will *Transfer Patient. Data interpreted: classroom monitor: rate is 130 beats/min, rhythm is atrial fibrillation, with Interpretation: atrial fibrillation, Pulse oximetry: on room air is 96 %. Test interpretation: by ED physician or midlevel provider: plain radiologic studies. Counseling: I had a detailed discussion with the patient and/or guardian regarding: the historical points, exam findings, and any diagnostic results supporting the discharge/admit diagnosis, lab results, radiology results, the need to transfer to another facility. ECG:. 10:42 ED course: Diltiazem 10 mg IVP caused HR drop to about 120 and SBP drop into the 80s. tl1 NS bolus of 500 ml led to blood pressure increase to about 100-110 systolic and Amiodarone, 150 mg bolus, followed by 1 mg / min. Discussed his care with Dr Jamil Martínez at [facility]. 10/20 09:40 Order name: CBC AUTO DIF, MDIF/RMOR IF IND; Complete Time: 11: EDMS 10/20 09:54 Interpretation: WHITE BLOOD COUNT 6.3; HEMOGLOBIN 10.5; HEMATOCRIT 31.2; PLATELET COUNT tl1 218. 10/20 10:07 Order name: BASIC METABOLIC PANEL; Complete Time: 11: EDMS 10/20 10:12 Interpretation: SODIUM 136; POTASSIUM 4.0; CHLORIDE 100; CARBON DIOXIDE 28; GLUCOSE tl1 132; BLOOD UREA NITROGEN 38; CREATININE 1.4. 10/20 10:07 Order name: MAGNESIUM; Complete Time: 11: EDAL 10/20 10:12 Interpretation: Normal: MAGNESIUM 2.1. 1 10/20 10:07 Order name: HEPATIC PANEL; Complete Time: 11: EDAL 10/20 10:12 Interpretation: Normal. 10/20 10:07 Order name: BNP,NT-PRO; Complete Time: 11: EDMS 10/20 10:12 Interpretation: Abnormal: BNP,NT-PRO 2300. 10/20 10:07 Order name: TROPONIN I; Complete Time: 11: EDAL 10/20 10:13 Interpretation: Normal: TROPONIN I 0.026. 10/20 10:41 Order name: DDIMER; Complete Time: 11: EDAL 10/20 11:03 Interpretation: Abnormal: DDIMER 334. 10/20 09:28 Order name: 12-lead EKG; Complete Time: :34 1 10/20 11:03 Interpretation: SEE NOTE. 10/20 09:28 Order name: Iv Saline Lock; Complete Time: :34 10/20 09:28 Order name: Place Patient On Monitor; Complete Time: :34 10/20 09:28 Order name: Pulse Ox Continuous; Complete Time: 09:34 tl1 EC:23 Rate is 137 beats/min. Rhythm is irregularly irregular. QRS [place] is Normal. QRS tl1 interval is normal at 83 msec. QT interval is normal at 310 msec. No Q waves. Clinical impression: A fib with RVR, and intermittent abberancy. Interpreted by me. Reviewed by me. Dispensed Medications: 09:50 Drug: Diltiazem 20 mg; Route: IVP; Infused Over: 10 mins; Site: right forearm; lpr 10:14 Follow up: stopped at 0953 due to low bp lpr 09:53 Drug: NS 0.9% 500 ml; Route: IV; Rate: bolus; Site: right forearm; lpr 10:36 Follow up: IV Status: Completed infusion; stop time at 1013 tg 10:16 Drug: amiodarone 150 mg; {Note: started by EMS personnel .} Route: IVP; Infused Over: lpr 10 mins; Site: right forearm; 10:36 Follow up: Response: No adverse reaction; No change in condition tg 10:35 Not Given (given by MEdevac enroute): amiodarone 360 mg IVPB once over 6 hrs; 1 mg/min tg Critical care time excluding procedures: 10:41 Critical care time: Bedside Care: 60 minutes, Consultation: 10 minutes. Total time: 70 tl1 minutes Signatures: Cristal Ladd RN RN lpr Yemi Tello MD MD tl1 Ralph Fragoso RN tg
--- NOTE | 2016-10-20 11:03 | ER NURSING DOCUMENTATION ---
Nurse's Notes [facility] Name:Reddy Mello Age:85 yrs Sex:Male :1930 Arrival Date:10/20/2016 Time:09:13 BedTrauma-C Private MD:Mike Bhakta Diagnosis:Atrial Fibrillation with Rapid Ventricular Response;Chest Pain;Acute Coronary Syndrome Presentation: 10/20 09:15 Acuity: RADHA 2 tg 09:51 Presenting complaint: Patient states: woke up this am, ate toast and then felt lpr fluttering in his chest. took bp, intially in 104 and dropped to 70's systolic. Became dizzy and light headed. Recent hospitalized for sepsis. Still on antibiotic tx. Transition of care: Home. AIR CAT ACTIVATION no. Asprin Given n/a. 09:51 Method Of Arrival: EMS: 410 lpr Triage Assessment: 09:20 General: Appears uncomfortable, Behavior is cooperative. Pain: Complains of pain in lpr left jaw. EENT: Oral mucosa is dry. Neuro: Level of Consciousness is awake, alert, obeys commands, Oriented to person, place, time, event. Cardiovascular: Rhythm is atrial fibrillation. Respiratory: Airway is patent Respiratory effort is even, unlabored, Respiratory pattern is regular, symmetrical. GI: Reports nausea. : No deficits noted. Derm: Skin is fragile. Musculoskeletal: Circulation, motion, and sensation intact Capillary refill < 3 seconds laceration to left lower leg, sutured on October 11. dressing in tact and dry.. Historical: - Allergies: PENICILLINS; Ativan; - Home Meds: 1. Metoprolol Tartrate Oral 2. Fish Oil oral 3. Probiotic Complex oral 4. CoQ-10 oral 5. Lasix Oral 6. Lipitor Oral 7. Prednisone Oral 8. warfarin 2.5 mg oral tab 1 tab once daily 9. Zetia Oral 10. aspirin 81 mg oral tab 1 tab once daily 11. cefazolin IV - PMHx: CHF (Congestive Heart Failure)(September 18, 2016); polymyalgia; heart disease; Leg Laceration, Except Thigh, w/o Complication (October 11, 2016); sepsis; - PSHx: valve replacement; valve replacement; - Tetanus: < 10 years. - Ebola Screening: : Patient negative for fever greater than or equal to 101.5 degrees Fahrenheit, and additional compatible Ebola Virus Disease symptoms. Patient denies exposure to infectious person. Patient denies travel to an Ebola-affected area in the 21 days before illness onset. No symptoms or risks identified at this time. . - Immunization history: Flu Vaccine < 1 year. - Social history: Smoking status: Patient states was never smoker of tobacco. Screenin:10 Infectious Disease Risk None. Abuse screen: Denies threats or abuse. Nutritional lpr screening: No deficits noted. Assessment: 10:09 See Triage Assessment done by same RN. Pain: Pain does not radiate. Pain began 2 hours lpr ago. Vital Signs: 09:20 BP 122 / 74 (auto/); lpr 09:22 Pulse 153 MON; Resp 19; Pulse Ox 98% ; Pain 3/10; lpr 09:31 BP 94 / 67 (auto/); lpr 09:32 Pulse 127 MON; Resp 24; Pulse Ox 93% ; lpr 09:45 BP 99 / 60 (auto/); lpr 09:47 Pulse 136 MON; Resp 22; Pulse Ox 97% ; lpr 09:49 Weight 63.5 kg; lpr 09:50 BP 83 / 48 (auto/); lpr 09:52 Pulse 129 MON; Resp 24; Pulse Ox 97% ; lpr 09:56 BP 94 / 64 (auto/); lpr 09:57 Pulse 118 MON; Resp 19; Pulse Ox 98% ; lpr 10:00 Temp 97.9(O); lpr 10:02 BP 108 / 69 (auto/); lpr 10:02 Pulse 121 MON; Resp 21; Pulse Ox 96% ; Pain 3/10; lpr ED Course: 09:14 Patient arrived in ED. ds 09:14 Mike Bhakta MD is Private Physician. ds 09:15 Ralph Fragoso, MELODY is Primary Nurse. tg 09:15 Triage completed. tg 09:16 Yemi Tello MD is Attending Physician. tl1 09:23 EKG done. (by ED staff). lpr 09:30 Accessed PICC line and blood collected. lpr 09:45 Port Xray Completed. avi 09:53 Oxygen Oxygen administration via nasal cannula @ 2L/min. lpr 10:10 Valuables Given to family. Patient has correct armband on for positive identification. lpr Placed in gown. Bed in low position. Call light in reach. Side rails up X2. environmental monitoring technician on. Pulse ox on. NIBP on. upon arrival. 10:12 EKG attached lpr Administered Medications: 09:50 Drug: Diltiazem 20 mg; Route: IVP; Infused Over: 10 mins; Site: right forearm; lpr 10:14 Follow up: stopped at 0953 due to low bp lpr 09:53 Drug: NS 0.9% 500 ml; Route: IV; Rate: bolus; Site: right forearm; lpr 10:36 Follow up: IV Status: Completed infusion; stop time at 1013 tg 10:16 Drug: amiodarone 150 mg; {Note: started by EMS personnel .} Route: IVP; Infused Over: lpr 10 mins; Site: right forearm; 10:36 Follow up: Response: No adverse reaction; No change in condition tg 10:35 Not Given (given by MEdevac enroute): amiodarone 360 mg IVPB once over 6 hrs; 1 mg/min tg Intake: Outcome: 10:17 Transferred: Patient will be transferred to: [facility]. Facility lpr Acceptance Time: October 20, 2016 at 09:50 Patient's face sheet was faxed to accepting facility. Face Sheet included patient's name, address, age, gender, contact information and insurance information. Patient will be transported by: [facility] [place] [employer] [employer]. Nurse and Physician Charting and Notes were sent to Accepting Facility. All tests and/or procedures with results, if applicable, were sent to accepting facility. 10:17 Condition: stable 10:17 Discharge instructions given to patient, significant other, Instructed on need for transfer Demonstrated understanding of instructions. 10:25 Report given to Roscoe Fragoso RN gave report to MELODY Maynard from [facility] [employer] [facility] 10:45 Transferred: Report called to: MELODY Up tg 10:45 Discharge Assessment: Patient awake and alert. Pt reports jaw pain improved as he left the ED with the flight team 11:00 ER care complete, transfer ordered by . tl1 11:02 Patient left the ED. lpr Signatures: Ralph Fragoso RN RN tg Srot, Padmaja, Reg Reg Cristal Chaparro RN RN lpr Kimi Elias Tom, MD MD tl1
--- NOTE | 2016-10-22 13:30 | RADIOLOGY REPORT ---
A limited single portable view of the chest is compared with prior film dated 03/2017. 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 The heart and vessels are unremarkable. Minimal scarring and/or atelectasis is noted at the left lung base. The lungs are otherwise clear. No infiltrate, fluid or pneumothorax is seen. IMPRESSION: Postoperative changes and minimal scarring and/or atelectasis at the left lung base. MTDD
== END 2016-10-20 11:02 | disposition short-term general hospital (02) ==
LOC: ER 09:13
DX: I48.91 Unspecified atrial fibrillation (principal); I25.110 Atherosclerotic heart disease of native coronary artery with unstable angina pectoris; R06.02 Shortness of breath; R01.1 Cardiac murmur, unspecified; I50.9 Heart failure, unspecified; Z79.899 Other long term (current) drug therapy; Z79.01 Long term (current) use of anticoagulants; Z79.82 Long term (current) use of aspirin; Z99.81 Dependence on supplemental oxygen; Z74.3 Need for continuous supervision
CPT/HCPCS: 71010; 80048; 80076; 83735; 83880; 84484; 85025; 85379; 93005; 96361; 96374; 96375; 99285; A0420; A0425; A0427

== ENCOUNTER 2016-10-27 15:03 | Emergency (ER) | payer MEDICARE ==
--- NOTE | 2016-10-28 13:03 | ER NURSING DOCUMENTATION ---
Nurse's Notes [facility] Name:Reddy Mello Age:85 yrs Sex:Male :1930 Arrival Date:10/27/2016 Time:15:03 Bed1 Private MD: Diagnosis:Suture Removal Presentation: 10/27 15:18 Presenting complaint: Patient states: pt here for suture removal from left fofana. st Transition of care: Home. 15:18 Acuity: RADHA 5 st 15:18 Method Of Arrival: Private Vehicle st Vital Signs: 15:18 BP 111 / 41; Pulse 60; Temp 97.5; st ED Course: 15:04 Patient arrived in ED. cj 15:18 Lisset Unger, RN is Primary Nurse. st 15:[address] 15:19 Removed sutures from left fofana Suture site is well healed scabbed over no signs of st infection. wound pulling when sutures removed. steri strips placed. Administered Medications: No medications were administered Outcome: 15:20 Discharged to home via wheelchair. st 15:20 Condition: improved 15:20 Instructed on wound care. 15:22 Discharge ordered by MD. st 15:22 Patient left the ED. st 15:23 No charge visit due to suture removal. st Signatures: Lisset Unger, RN RN Klely Levine
== END 2016-10-28 13:03 | disposition home or self-care (01) ==
LOC: ER 15:03
DX: Z48.02 Encounter for removal of sutures (principal); S81.812D Laceration without foreign body, left lower leg, subsequent encounter

== ENCOUNTER 2016-10-30 15:26 | Emergency (ER) | payer MEDICARE ==
--- NOTE | 2016-10-30 15:40 | ER NURSING DOCUMENTATION ---
Nurse's Notes [facility] Name:Reddy Mello Age:85 yrs Sex:Male :1930 Arrival Date:10/30/2016 Time:15:26 Bed2 Private MD:Mike Bhakta Diagnosis:Epistaxis - Nose Bleed Presentation: 10/30 15:30 Acuity: RADHA 5 15:37 Presenting complaint: Patient states: He to get packing removed. Dr. Ramirez recommended rh the patient wait until tomorrow to have packing removed. Pt will return tomorrow. Transition of care: Home. 15:37 Method Of Arrival: Private Vehicle Triage Assessment: 15:37 General: Appears in no apparent distress, Behavior is cooperative. Pain: Denies pain. rh EENT: Nares on left Nasal Packing, dried blood noted. Respiratory: Airway is patent Respiratory effort is even, unlabored, Respiratory pattern is regular, symmetrical, Denies shortness of breath. ED Course: 15:28 Patient arrived in ED. ds 15:28 Mike Bhakta MD is Private Physician. ds 15:29 Na Reyes is Primary Nurse. 15:30 Triage completed. rh Administered Medications: No medications were administered Outcome: 15:38 Discharged to home ambulatory, with significant other. rh 15:38 Condition: stable 15:38 Instructed on follow up and referral plans. 15:38 No charge visit due to Nasal packing removal - still in place - will return tomorrow . 15:39 Discharge ordered by MD. 15:40 Patient left the ED. 10/31 10:57 Discharge F/U Call: Unable to reach: no answer lp Signatures: Khalida Cueva RN RN lp Srot, Padmaja, Reg Reg Na Lai
== END 2016-10-30 15:40 | disposition home or self-care (01) ==
LOC: ER 15:26
DX: Z48.00 Encounter for change or removal of nonsurgical wound dressing (principal); R04.0 Epistaxis

== ENCOUNTER 2016-10-31 14:18 | Emergency (ER) | payer MEDICARE ==
--- NOTE | 2016-10-31 15:11 | ER NURSING DOCUMENTATION ---
Nurse's Notes [facility] Name:Reddy Mello Age:85 yrs Sex:Male :1930 Arrival Date:10/31/2016 Time:14:18 Bed5 Private MD:Mike Bhakta Diagnosis:Epistaxis - Nose Bleed Presentation: 10/31 14:30 Acuity: RADHA 5 rs 14:30 Presenting complaint: Patient states: Here for nasal packing removal. Transition of rs care: patient was not received from another setting of care. 14:30 Method Of Arrival: Private Vehicle rs Triage Assessment: 14:30 General: Appears in no apparent distress, comfortable, well developed, well nourished, rs well groomed. Historical: - Allergies: PENICILLINS; Ativan; - Home Meds: 1. Metoprolol Tartrate Oral 2. Fish Oil oral 3. Probiotic Complex oral 4. CoQ-10 oral 5. Lasix Oral 6. Lipitor Oral 7. Prednisone Oral 8. warfarin 2.5 mg oral tab 1 tab once daily 9. Zetia Oral 10. aspirin 81 mg oral tab 1 tab once daily 11. cefazolin IV - PMHx: CHF (September 18, 2016); polymyalgia; heart disease; Leg Laceration, Except Thigh, w/o Complication (October 11, 2016); sepsis; Atrial Fibrillation with Rapid Ventricular Response (October 20, 2016); Chest Pain (October 20, 2016); Acute Coronary Syndrome (October 20, 2016); - PSHx: valve replacement; - Ebola Screening: : Patient negative for fever greater than or equal to 101.5 degrees Fahrenheit, and additional compatible Ebola Virus Disease symptoms. Patient denies exposure to infectious person. Patient denies travel to an Ebola-affected area in the 21 days before illness onset. No symptoms or risks identified at this time. . - Immunization history: Unable to Obtain. ED Course: 14:19 Patient arrived in ED. lm3 14:19 Mike Bhakta MD is Private Physician. lm3 14:49 Triage completed. rs Administered Medications: No medications were administered Outcome: 14:45 Discharged to home ambulatory. rs 14:45 Condition: improved 14:45 Discharge instructions given to patient, Instructed on discharge instructions. 15:10 Discharge ordered by MD. rs 15:10 Patient left the ED. rs Signatures: Gege Clemens RN RN Yemi Bray MD MD tl1 Ashli Gillespie lm3
--- NOTE | 2016-11-02 15:10 | ER PHYSICIAN DOCUMENTATION ---
Physician Documentation [facility] Name:Reddy Mello Age:85 yrs Sex:Male :1930 Arrival Date:10/31/2016 Time:14:18 Bed5 Private MD:Mike Bhakta ED Physician Disposition: 10/31 15:10 Chart complete. tl1 Disposition: 10/31/16 15:10 Discharged to Home/Self Care. Impression: Epistaxis - Nose Bleed. - Condition is Good. - Medical Reconciliation form form. - Follow up: Private Physician; When: As needed. HPI: 14:40 This 85 yrs old Male presents to ER via Private Vehicle with complaints of tl1 Nose Problem - REMOVE PACKING. 14:40 Packing placed 3 days ago. No bleeding since. Here for packing removal. No other tl1 complaint.. Historical: - Allergies: PENICILLINS; Ativan; - Home Meds: 1. Metoprolol Tartrate Oral 2. Fish Oil oral 3. Probiotic Complex oral 4. CoQ-10 oral 5. Lasix Oral 6. Lipitor Oral 7. Prednisone Oral 8. warfarin 2.5 mg oral tab 1 tab once daily 9. Zetia Oral 10. aspirin 81 mg oral tab 1 tab once daily 11. cefazolin IV - PMHx: CHF (September 18, 2016); polymyalgia; heart disease; Leg Laceration, Except Thigh, w/o Complication (October 11, 2016); sepsis; Atrial Fibrillation with Rapid Ventricular Response (October 20, 2016); Chest Pain (October 20, 2016); Acute Coronary Syndrome (October 20, 2016); - PSHx: valve replacement; - Ebola Screening: : Patient negative for fever greater than or equal to 101.5 degrees Fahrenheit, and additional compatible Ebola Virus Disease symptoms. Patient denies exposure to infectious person. Patient denies travel to an Ebola-affected area in the 21 days before illness onset. No symptoms or risks identified at this time. . - Immunization history: Unable to Obtain. ROS: 15:10 ENT: Negative for nasal discharge. tl1 Exam: 15:10 ENT: Nose: is normal. tl1 MDM: 14:43 Patient medically screened. tl1 15:10 Data reviewed: vital signs, nurses notes, old medical records, and as a result, I will tl1 discharge patient. Counseling: I had a detailed discussion with the patient and/or guardian regarding: the historical points, exam findings, and any diagnostic results supporting the discharge/admit diagnosis, the need for outpatient follow up, to return to the emergency department if symptoms worsen or persist or if there are any questions or concerns that arise at home. Response to treatment: There is no appreciated change of the patient's symptoms at this time, and as a result, I will discharge patient. ED course: Packing removed from left nostril. No bleeding . No visible nasal abnormality.. Dispensed Medications: No medications were administered Signatures: Gege Clemens, MELODY RN Yemi Bray MD MD tl1
== END 2016-10-31 15:10 | disposition home or self-care (01) ==
LOC: ER 14:18
DX: Z48.00 Encounter for change or removal of nonsurgical wound dressing (principal); R04.0 Epistaxis; Z79.01 Long term (current) use of anticoagulants
CPT/HCPCS: 99281

== ENCOUNTER 2017-01-05 13:31 | Inpatient (IN) | payer MEDICARE ==
[2017-01-05 14:09] LABS: BASOPHILS 0.4 % (0.0-2.0); EOSINOPHILS 1.6 % (0.0-6.0); EOSINOPHILS# 0.1 X 10^3uL (0.0-0.4); HEMATOCRIT 38.1 % (42.0-54.0); LYMPHOCYTES 11.7 % (20.0-40.0); LYMPHOCYTES# 0.8 X 10^3uL (0.8-3.8); MEAN CELL VOLUME 91.6 fL (80.0-100.0); MEAN CORPUS. HGB CONCENTRATION 34.1 g/dL (32.0-36.0); MEAN CORPUSCULAR HEMOGLOBIN 31.2 pg (29.0-35.0); MEAN PLATELET VOLUME 8.2 fL (7.4-10.4); MONOCYTES 9.2 % (2.0-10.0); MONOCYTES# 0.6 X 10^3uL (0.2-1.0); NEUTROPHILS# 5.4 X 10^3uL (2.6-6.7); PLATELET COUNT 167 X 10^3uL (130-440); RED CELL DISTRIBUTION WIDTH 16.4 % (11.5-14.5); WHITE BLOOD COUNT 6.9 X 10^3uL (3.9-10.7)
[2017-01-05 14:19] LABS: BLOOD UREA NITROGEN 39 mg/dL (9-20); CALCIUM 9.4 mg/dL (8.4-10.2); CHLORIDE 104 mmol/L (98-107); GLUCOSE 82 mg/dL (70-100); POTASSIUM 4.4 mmol/L (3.5-5.1); SODIUM 140 mmol/L (137-145)
[2017-01-05] MEDS ORDERED: MORPHINE SULFATE 4 MG/ML SYR ONE ×2 (14:29→16:42)
[2017-01-05 14:36] LABS: NEUTROPHILS 77.1 % (54.0-75.0); RED BLOOD COUNT 4.16 X 10^6uL (4.20-6.10)
--- NOTE | 2017-01-05 16:17 | MRI REPORT ---
HISTORY: Lower back pain. Prior T10 compression. Twisting injury. COMPARISON: Lumbar spine radiographs dated 12/19/[address] abdomen and pelvis dated 12/16/2016. TECHNIQUE: Multiplanar multi sequential imaging of the lumbar spine obtained without IV gadolinium. FINDINGS: A moderate compression fracture of T10 appears unchanged since the prior lumbar spine radiographs. Th ere is persistent marrow edema throughout the vertebral body and a subacute fracture line is noted in the posterior aspect vertebral body in a vertically oriented configuration. The fracture extends acr oss the superior endplate. There is no significant retropulsion or spinal stenosis at that level. The lower aspect of the spinal cord shows mild centrally increased signal, suggestive of syringomyelia. Mild loss of height also involves the superior aspect of L2, with a subacute superior endplate fractu re. This is associated with marrow edema and is new since the CT of 12/16/2016 and the radiographs of . There is no retropulsion or spinal stenosis. Mild superior endplate compression of L3 is unc hanged and chronic. Axial images demonstrate the following: T10-11: Mild bulging disc does not cause stenosis. T11-12 through L1-2: No disc protrusion or stenosis. L2-L3: No disc herniation, foraminal narrowing, or spinal stenosis. L3-L4: Mild bulging disc and facet hypertrophy do not cause spinal stenosis. Foramina are mildly narr owed. L4-L5: Mild central bulging disc and facet hypertrophy do not cause spinal stenosis. Foramina are mil dly narrowed. L5-S1: Mild protruding disc and facet hypertrophy do not cause spinal stenosis. Foramina are mildly n arrowed. IMPRESSION: 1. New mild superior endplate compression fracture of L2, without retropulsion or spinal stenosis. No paraspinal hematoma. 2. Unchanged moderate compression fracture of T10. 3. 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 4. No significant spinal stenosis at any level. Mild bilateral foraminal narrowing from L3-4 through L5-S1, caused by bulging disc and facet hypertrophy. This report was personally discussed with Dr. Shaka Josue on 01/05/2017 at 4:15 PM. Final Electronic Signature: This report was electronically signed by Lavell Lawton MD on 01/05/2017 4:15 PM. antonio /
[2017-01-05] MEDS ORDERED: HOME MEDICATION LIST NEEDED 1 EA EACH MC ONE (16:28)
[2017-01-05] MEDS ORDERED: ACETAMINOPHEN 325 MG TABLET PO PRN (16:28)
[2017-01-05] MEDS ORDERED: MORPHINE SULFATE 4 MG/ML SYR IV PRN (16:30)
--- NOTE | 2017-01-05 17:25 | ER PHYSICIAN DOCUMENTATION ---
Physician Documentation [facility] Name:Reddy Mello Age:86 yrs Sex:Male :1930 Arrival Date:01/05/2017 Time:13:31 Bed6 Private MD: Shaka Serna Disposition: 01/05/17 16:21 Admit ordered for Karis Montana. Preliminary diagnosis is Closed Lumbar Fracture, Unspecified. - Bed requested for Medical/Surgical. - Condition is Fair. - Problem is new. - Symptoms have worsened. 23 HR OBS Yes HPI: 01/05 13:57 This 86 yrs old Male presents to ER via Private Vehicle with complaints of jm Back Pain. 13:57 The patient presents with pain that is acute. The symptoms are located in the low back. jm Onset: The symptoms/episode began/occurred yesterday. The pain does not radiate. Associated signs and symptoms: Pertinent negatives: numbness, urinary retention. The problem was sustained Pt was trying to catch his trousers from falling down and jerked forward quickly to catch them and ended up jerking his back. . Modifying factors: the patient symptoms are aggravated by any movement, bending, coughing, lifting, movement. Severity of symptoms: in the emergency department the symptoms are unchanged. The patient has not experienced similar symptoms in the past. The patient has been recently seen by a physician: Dr. Montana- who wanted pt evaled in the ER for possible compression fx w MRI. . Historical: - Allergies: PENICILLINS; Ativan; - Home Meds: 1. Lidoderm 5 %(700 mg/patch) topical ptmd 1 patch once daily 2. prednisone 5 mg/mL oral conc once daily 3. acetaminophen 500 mg oral tab 2 tabs every 6 hours as needed 4. aspirin 81 mg oral tab 1 tab once daily 5. Coumadin 2.5 mg oral tab 1 tab once daily 6. metoprolol tartrate 25 mg oral tab 1 tab 2 times per day 7. Pepcid 20 mg oral tab 1 tab 2 times per day 8. amiodarone 200 mg oral tab 1 tab once daily 9. Lasix 40 mg oral tab 1 tab once daily 10. Miacalcin 200 unit/actuation nasal spry 11. Klor-Con 10 10 mEq oral TbER 1 tab once daily 12. oxycodone 5 mg oral cap 1 cap every 6 hours as needed for pain 13. OXYGEN 3 L AT NIGHT - PMHx: CHF (Congestive Heart Failure)(September 18, 2016); heart disease; Leg Laceration, Except Thigh, w/o Complication (October 11, 2016); ANGINA; GOUT; CAD; ATRIAL FIB; HYPERTENSION; renal insufficiency; hypercholesterolemia; - PSHx: valve replacement; TONSILLECTOMY; CABG; ADENOIDS; - Tetanus: < 10 years. - Ebola Screening: : Patient negative for fever greater than or equal to 101.5 degrees Fahrenheit, and additional compatible Ebola Virus Disease symptoms. - Immunization history: Pneumococcal vaccine is up to date, Flu Vaccine < 1 year. - Social history: Smoking status: Patient states was never smoker of tobacco. ROS: 14:05 Constitutional: Negative for fever. jm 14:05 ENT: Negative for rhinorrhea, sinus congestion, sinus pain, sore throat. 14:05 Neck: Negative for injury or acute deformity. 14:05 Respiratory: Negative for cough, shortness of breath. 14:05 Abdomen/GI: Negative for abdominal pain, nausea, vomiting. 14:05 Back: Positive for injury or acute deformity, pain at rest, pain with movement. 14:05 MS/extremity: Negative for swelling, tenderness. 14:05 Neuro: Negative for dizziness, numbness, tingling, weakness. 14:05 Psych: Negative for anxiety, depression, drug dependence, alcohol dependence. Exam: 14:07 Constitutional: The patient appears alert, awake. 14:07 Eyes: Periorbital structures: appear normal, Conjunctiva: normal. 14:07 ENT: Posterior pharynx: is normal. 14:07 Neck: Thyroid: appears normal, Trachea: is midline with no obvious abnormalities. 14:07 Cardiovascular: Rate: bradycardic, Rhythm: regular. 14:07 Respiratory: Respirations: normal, Breath sounds: are normal. 14:07 Respiratory: 14:07 Abdomen/GI: Bowel sounds: normal, Palpation: abdomen is soft and non-tender. 14:07 Back: pain, that is moderate, of the lumbar area and left mid back, CVA tenderness, is absent. 14:07 Back: normal spinal alignment noted. 14:07 Musculoskeletal/extremity: Pulses: are normal with no appreciated deficits, Weight bearing: can bear weight with assistance only, uses walker. 14:07 Skin: Appearance: Color: pink, no rash present. 14:07 Neuro: Mentation: is normal, Memory: is normal. 14:07 Neuro: Mentation: Gait: needs assistance, uses a walker, Deep tendon reflexes are normal, 2+ (normal) in the right patellar and left patellar. Vital Signs: 13:51 BP 133 / 59; Pulse 53; Resp 18; Temp 98.7(O); Pulse Ox 92% on R/A; Weight 62.14 kg; rh Height 5 ft. 5 in. (165.10 cm); Pain 5/10; 16:32 Pain 8/10; lpr 17:17 BP 124 / 61; Pulse 59; Resp 15; Pulse Ox 97% on 2 lpm NC; Pain 3/10; rh 13:51 Body Mass Index 22.80 (62.14 kg, 165.10 cm) rh MDM: 13:33 Patient medically screened. 16:19 Differential diagnosis: Fracture. Data reviewed: vital signs, nurses notes, old medical jm records, lab test result(s), radiologic studies, and as a result, I will admit patient. Counseling: I had a detailed discussion with the patient and/or guardian regarding: the historical points, exam findings, and any diagnostic results supporting the discharge/admit diagnosis, lab results, radiology results, the need for further work-up and treatment in the hospital. Response to treatment: the patient's symptoms have mildly improved after treatment. Physician consultation: Karis Montana MD regarding admission, and will see patient shortly, later today. ED course: PT w new fx of L2. Pt will be admitted for PT and pain control. . 01/05 14:20 Order name: BASIC METABOLIC PANEL EDUT 01/05 14:37 Order name: CBC AUTO DIF, MDIF/RMOR IF IND EDMS 01/05 17:11 Order name: PROTIME/INR EDMS 01/05 19:49 Order name: HEPATIC PANEL EDUT 01/06 06:07 Order name: PROTIME/INR EDMS 01/06 06:08 Order name: CBC AUTO DIF, MDIF/RMOR IF IND EDMS 01/06 06:21 Order name: BASIC METABOLIC PANEL EDUT 01/06 10:52 Order name: BNP,NT-PRO EDMS 01/06 12:56 Order name: UA W/ MICRO -CULTURE IF IND EDMS 01/07 07:25 Order name: PROTIME/INR EDMS 01/07 07:26 Order name: CBC AUTO DIF, MDIF/RMOR IF IND EDUT 01/07 07:33 Order name: BASIC METABOLIC PANEL EDUT 01/07 07:33 Order name: BNP,NT-PRO EDUT 01/07 07:33 Order name: C-REACTIVE PROTEIN [facility] 01/07 07:54 Order name: ERYTHROCYTE SEDIMENTATION RATE [facility] 01/07 09:16 Order name: URINE CULTURE [facility] 01/07 11:29 Order name: BLOOD CULTURE [facility] 01/07 11:30 Order name: BLOOD CULTURE [facility] 01/05 16:20 Order name: LUMBAR SPINE W/O [id number] [facility] 01/06 18:29 Order name: CXR 2V [id number] [facility] 01/05 13:38 Order name: Iv Saline Lock; Complete Time: 14:03 01/05 13:38 Order name: Pulse Ox Continuous; Complete Time: 13:44 Dispensed Medications: 13:42 CANCELLED (Physician Discretion): NS 0.9% 1000 ml IV at bolus once 14:21 Drug: morphine 4 mg; Route: IVP; Site: right antecubital; rh 17:19 Follow up: Response: Pain is decreased rh 14:21 Drug: NS 0.9% 1000 ml; Route: IV; Rate: bolus; Site: right antecubital; rh 16:30 Follow up: IV Status: Infusion discontinued; IV Intake: 400ml rh 16:36 Drug: morphine 4 mg; Route: IVP; Site: right antecubital; lpr 17:17 Follow up: Response: No adverse reaction; Pain is decreased rh Signatures: Shaka Josue MD MD jm Roberts, Leslie, RN RN lpr Na Reyes rh
--- NOTE | 2017-01-05 17:25 | ER NURSING DOCUMENTATION ---
Nurse's Notes [facility] Name:Reddy Mello Age:86 yrs Sex:Male :1930 Arrival Date:01/05/2017 Time:13:31 Bed6 Private MD: Diagnosis:Closed Lumbar Fracture, Unspecified Presentation: 01/05 13:34 Acuity: RADHA 3 rh 13:44 Presenting complaint: states: Pt has a compression fx in his back, he was leaning rh on the couch yesterday pulling up his pants, the pants fell down and he attempted to grab them, however in the process of bending over quickly he felt a sharp pain in his back. Pt c/o increased pain. Transition of care: [facility]. 13:44 Method Of Arrival: Private Vehicle Triage Assessment: 13:50 General: Appears in no apparent distress, Behavior is cooperative. Pain: Complains of rh pain in back. EENT: Oral mucosa is dry. Neuro: Level of Consciousness is awake, alert, obeys commands. Cardiovascular: Capillary refill < 3 seconds. Respiratory: Airway is patent. Musculoskeletal: Circulation, motion, and sensation intact Capillary refill < 3 seconds Range of motion intact in all extremities. Reports pain in back. Historical: - Allergies: PENICILLINS; Ativan; - Home Meds: 1. Lidoderm 5 %(700 mg/patch) topical ptmd 1 patch once daily 2. prednisone 5 mg/mL oral conc once daily 3. acetaminophen 500 mg oral tab 2 tabs every 6 hours as needed 4. aspirin 81 mg oral tab 1 tab once daily 5. Coumadin 2.5 mg oral tab 1 tab once daily 6. metoprolol tartrate 25 mg oral tab 1 tab 2 times per day 7. Pepcid 20 mg oral tab 1 tab 2 times per day 8. amiodarone 200 mg oral tab 1 tab once daily 9. Lasix 40 mg oral tab 1 tab once daily 10. Miacalcin 200 unit/actuation nasal spry 11. Klor-Con 10 10 mEq oral TbER 1 tab once daily 12. oxycodone 5 mg oral cap 1 cap every 6 hours as needed for pain 13. OXYGEN 3 L AT NIGHT - PMHx: CHF (Congestive Heart Failure)(September 18, 2016); heart disease; Leg Laceration, Except Thigh, w/o Complication (October 11, 2016); ANGINA; GOUT; CAD; ATRIAL FIB; HYPERTENSION; renal insufficiency; hypercholesterolemia; - PSHx: valve replacement; TONSILLECTOMY; CABG; ADENOIDS; - Tetanus: < 10 years. - Ebola Screening: : Patient negative for fever greater than or equal to 101.5 degrees Fahrenheit, and additional compatible Ebola Virus Disease symptoms. - Immunization history: Pneumococcal vaccine is up to date, Flu Vaccine < 1 year. - Social history: Smoking status: Patient states was never smoker of tobacco. Screenin:52 Infectious Disease Risk None. Abuse screen: Denies threats or abuse. Denies injuries rh from another. Nutritional screening: No deficits noted. Assessment: 13:51 See Triage Assessment done by same RN. rh Vital Signs: 13:51 BP 133 / 59; Pulse 53; Resp 18; Temp 98.7(O); Pulse Ox 92% on R/A; Weight 62.14 kg; rh Height 5 ft. 5 in. (165.10 cm); Pain 5/10; 16:32 Pain 8/10; lpr 17:17 BP 124 / 61; Pulse 59; Resp 15; Pulse Ox 97% on 2 lpm NC; Pain 3/10; rh 13:51 Body Mass Index 22.80 (62.14 kg, 165.10 cm) rh ED Course: 13:32 Patient arrived in ED. cj 13:34 Triage completed. rh 13:38 Shaka Josue MD is Attending Physician. rebel 13:40 Notified ED Physician of patient's arrival and chief complaint. Dr. Josue notified. rh 13:52 Valuables Remains with patient Patient has correct armband on for positive rh identification. Placed in gown. Bed in low position. Call light in reach. Side rails up X 1. PO fluids given. Warm blanket given. Pillow given. Family accompanied patient. 14:00 Inserted peripheral IV: 20 gauge in right antecubital area and blood collected. rh 14:14 Na Reyes is Primary Nurse. rh 15:20 Patient moved to [facility]. dnn 16:20 Shaka Josue MD is Admitting Physician. jm 16:21 Karis Montana MD is Admitting Physician. jm 16:24 Patient moved back from [facility]. ms Administered Medications: 13:42 CANCELLED (Physician Discretion): NS 0.9% 1000 ml IV at bolus once jm 14:21 Drug: morphine 4 mg; Route: IVP; Site: right antecubital; rh 17:19 Follow up: Response: Pain is decreased 14:21 Drug: NS 0.9% 1000 ml; Route: IV; Rate: bolus; Site: right antecubital; rh 16:30 Follow up: IV Status: Infusion discontinued; IV Intake: 400ml rh 16:36 Drug: morphine 4 mg; Route: IVP; Site: right antecubital; lpr 17:17 Follow up: Response: No adverse reaction; Pain is decreased rh Intake: 16:30 IV: 400ml; Total: 400ml. rh Outcome: 16:21 Decision to Admit by Provider. 17:22 Admitted to Med/surg accompanied by nurse, family with patient, via stretcher, with oxygen, with chart. 17:22 Condition: stable 17:22 Discharge Assessment: Patient awake, alert and oriented x 3. No cognitive and/or functional deficits noted. Patient verbalized understanding of disposition instructions. 17:22 Instructed on need to admit 17:24 Patient left the ED. Signatures: Shaka Josue MD MD jm Strickland, Mary ms Roberts, Leslie, RN RN Steve Oconnor Rachel Kelly Benito
[2017-01-05] MEDS ORDERED: POLYETHYLENE GLYCOL 3350 17 GM POWD.PACK PO PRN (19:28)
[2017-01-05 19:48] LABS: ALBUMIN 4.1 g/dL (3.5-5.0); BILIRUBIN, DIRECT 0.3 mg/dL (0.0-0.4); BILIRUBIN, TOTAL 0.9 mg/dL (0.2-1.3); TOTAL PROTEIN 7.6 g/dL (6.3-8.2)
[2017-01-05] MEDS ORDERED: ONDANSETRON HCL 4 MG/2 ML VIAL IV PRN (20:07)
[2017-01-05] MEDS: AMIODARONE HCL 200 MG TABLET PO SCH (20:55)
[2017-01-05] MEDS: LIDOCAINE 5% 1 PATCH PATCH TOPICAL SCH (20:56)
--- NOTE | 2017-01-06 03:43 | HISTORY & PHYSICAL ---
DATE OF ADMISSION: 01/05/17 PRIMARY CARE PROVIDER: Dr. Mike Bhakta. PATIENT SERVICE TECHNICIAN PST: Dr. Juan M Garza. CHIEF COMPLAINT: Low back pain. HISTORY OF PRESENT ILLNESS: The patient was seen for acute right sided low back pain without sciatica on 12/19/2016. Plain x-rays at that time showed an age indeterminate compression fracture of T10 with 50% height loss, new since CT scan 03/23/2014. Degenerative disk and facet disease was also seen. He was seen again in followup on 12/22/2016. He has been treating his pain at home with a Lidoderm patch, Miacalcin nasal spray, oxycodone 5 mg one-half tablet once daily, and Tylenol 500 mg 2 tablets 3 times daily. He states that he did not have any falls prior to his original presentation on 12/19/2016. Yesterday, he was putting on his trousers and he had to drop the pants due to acute worsening of his pain from this simple motion. However, he states that he has new pain which is distal to the original pain of the T10 compression fracture. He has not been able to walk since this incident yesterday without using the walker. He has not had any urinary or fecal incontinence. No radiation of the pain to his left lower extremity. He states that he has chronic left lower extremity numbness and tingling at night from an old injury, but no new paresthesias. No fevers, chills or sweats. He has been seeing physical therapy twice weekly and has an appointment this afternoon. He states that he has had some mild diffuse abdominal pain and constipation. He initially wanted to manage his pain at home and declined admission. However, after further discussion with Alex and his , he was willing to be brought in for intractable low back pain. He was then sent to the ED from the office for workup and facilitation of his admission. REVIEW OF SYSTEMS: He states that he is having more fatigue than usual. He has had some appetite loss. His left lower extremity wound has healed nicely. He is not having any chest pain or shortness of breath. No bilateral lower extremity edema. No palpitations. No PND. He chronically uses 2-3 pillows at night for comfort. No diarrhea. Mild constipation but he did have a bowel movement yesterday. No nausea or vomiting. No dysuria. PAST MEDICAL HISTORY 1. T10 compression fracture which appears to be subacute. 2. 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 3. Pulmonary hypertension, severe by echocardiogram 09/2016. 4. Chronic renal failure. Most recent creatinine was 2.4. Followed by nephrology. 5. Gout. 6. Osteoporosis. 7. Polymyalgia rheumatica on chronic steroids. 8. Mitral valve stenosis status post balloon valvuloplasty now with moderate mitral regurgitation followed by Cardiology and awaiting assessment in the valve clinic. 9. Aortic valve stenosis, severe by echo 09/2016, Followed by Cardiology. 10. Chronic diastolic heart failure. 11. Iron deficiency anemia. 13. Coronary artery disease status post 3 vessel bypass surgery October 2012: severe LAD and RCA disease by cath 09/2016. 14. Atrial fibrillation, controlled with history of atrial fibrillation with rapid ventricular response. 15. Hyperlipidemia. 16. Hypertension. 17. Restrictive lung disease. 19. Trigeminal neuralgia, right side of face. 20. Chronic constipation. 21. Nocturnal hypoxemia: 3L at night. PAST SURGICAL HISTORY 1. Balloon mitral valve valvuloplasty 09/2013. 2. Three vessel CABG 10/2012. 3. Tonsillectomy and adenoidectomy. MEDICATIONS Lidoderm 5% patch 12 hours on 12 hours off. Miacalcin nasal spray one spray alternating nostrils daily. Oxycodone 5 mg 1/2 tablet daily. Prednisone 5 mg daily. Acetaminophen 500 mg 2 tablets 3 times daily. Lasix 40 mg daily. KlorCon 8 mEq daily. Ferrous sulfate 325 mg daily. Amiodarone 200 mg daily. Pepcid 20 mg twice daily. Metoprolol 25 mg twice daily. Coumadin dosing managed by Cardiology. He takes anywhere from 1 to 2.5 mg daily. He took 1.25 mg of Coumadin yesterday. He has not yet taken his Coumadin dosage today. Baby aspirin 81 mg daily. Oxygen 3 liters at night. Probiotic daily. ALLERGIES: Penicillin caused facial swelling. Ativan violent reaction. SOCIAL HISTORY: He is to Deepika. 7 children. Occasional alcohol use. No drug use, specifically no marijuana. He has never been a smoker. 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 FAMILY HISTORY: A brother and niece with melanoma. Two daughters with thyroid disease. Daughter with ovarian cancer. Brother with coronary artery disease. Brother with diabetes. Father with lung cancer. PHYSICAL EXAMINATION VITAL SIGNS: Temperature 97.5, pulse 48, respiratory rate 18, blood pressure 124/74, 93% on room air. His weight is 142, height 64 inches. GENERAL: This is a very pleasant elderly male who is examined in a wheelchair secondary to pain. He has had multiple bouts of severe pain with movement while in the exam room. HEENT: His pupils are equal, round, reactive to light. Extraocular movements are intact. Arcus senilis present bilaterally. Funduscopic exam is quite limited. His TMs are clear. His nares are clear. His oropharynx is clear. His lips are dry. His mucous membranes are intact. NECK: Supple. No carotid bruits. No lymphadenopathy. No jugular venous distention. LUNGS: Fairly good aeration and clear throughout. HEART: Regular rate and rhythm with a holosystolic grade 3/6 murmur heard best at the apex and left sternal border. Also with holosystolic grade 3/6 murmur heard best at the aortic area and apex. No change from prior exams. ABDOMEN: Soft and nontender, nondistended with good bowel sounds and no masses or hepatosplenomegaly. EXTREMITIES: He has chronic venostasis changes bilaterally with some pigmentation. He has well healed laceration scar of the left lower extremity anterior fofana. Trace pretibial and pedal edema. Negative Homans. Nontender. Good peripheral pulses. Thick, onychomycotic nails bilaterally. NEUROLOGIC: Alert and oriented times 3. Cranial nerves 2 through 12 are grossly intact without focal deficits. Motor sensation and DTRs are intact. He is an excellent historian. DATA: BUN is 39, creatinine is 1.8. This is greatly improved to most recent laboratories 12/15/2016 with BUN of 38 and creatinine of 2.4. CBC shows white count of 6.9, hemoglobin of 13.0, hematocrit 38.1, platelets 167. Blood cultures done 12/15/2016 with no growth in 5 days. L-spine MRI without contrast done in the emergency room today shows new mild superior end plate compression fracture of L2 without retropulsion or spinal stenosis. Moderate compression fracture of T10 with no change. No significant spinal stenosis at any level. Mild bilateral foraminal narrowing from L4 through L5 to S1 caused by bulging disc and facet hypertrophy. ASSESSMENT: This is an 86-year-old male with multiple medical problems who presents with intractable pain due to new L2 compression fracture. PLAN 1. Fluids, electrolytes and nutrition. His kidney function is actually better than his baseline. He seems fairly euvolemic on exam. Cardiac diet. Electrolytes are stable. 2. Musculoskeletal. The patient with new L2 compression fracture as well as subacute T10 compression fracture. Will use IV morphine for pain control. Continue lidocaine patch, Tylenol, and Miacalcin nasal spray. Physical therapy consult. 3. Cardiovascular. The patient with extensive cardiac history including coronary artery disease, valvular heart disease, diastolic congestive heart failure, A fib, HTN, hyperlipidemia, and prior endocarditis. All of his cardiac issues seem to be fairly stable at this time. 4. Renal. The patient with chronic renal failure. His creatinine is better than his most recent values. Avoid nephrotoxic agents. Continue to follow closely. 5. Respiratory. Severe pulmonary hypertension. He uses 3L oxygen at night. He has a new oxygen requirement of 3L now. Check chest x-ray and BNP. 6. Disposition. His medical records state that he is a full cor. Will clarify with the patient and follow his wishes. I have changed him from the ER order of observation to inpatient admission. I suspect he will need 2-3 days to get his pain under control. He may need a swing bed rehabilitation stay for further strengthening. Request physical therapy evaluation. Copy to Dr. Mike Bhakta; Dr. Juan M MCLAIN
[2017-01-06 06:04] LABS: BASOPHILS 0.6 % (0.0-2.0); EOSINOPHILS# 0.1 X 10^3uL (0.0-0.4); HEMATOCRIT 38.7 % (42.0-54.0); HEMOGLOBIN 13.1 g/dL (14.0-18.0); MEAN CELL VOLUME 91.3 fL (80.0-100.0); MEAN CORPUS. HGB CONCENTRATION 33.8 g/dL (32.0-36.0); MEAN CORPUSCULAR HEMOGLOBIN 30.9 pg (29.0-35.0); MEAN PLATELET VOLUME 9.2 fL (7.4-10.4); MONOCYTES 8.3 % (2.0-10.0); MONOCYTES# 0.6 X 10^3uL (0.2-1.0); NEUTROPHILS 77.1 % (54.0-75.0); NEUTROPHILS# 5.9 X 10^3uL (2.6-6.7); PLATELET COUNT 167 X 10^3uL (130-440); RED BLOOD COUNT 4.24 X 10^6uL (4.20-6.10); WHITE BLOOD COUNT 7.6 X 10^3uL (3.9-10.7)
[2017-01-06 06:05] LABS: BLOOD UREA NITROGEN 33 mg/dL (9-20); CALCIUM 9.3 mg/dL (8.4-10.2); CHLORIDE 106 mmol/L (98-107); GLUCOSE 89 mg/dL (70-100); INR 3.4; POTASSIUM 4.4 mmol/L (3.5-5.1); SODIUM 141 mmol/L (137-145)
[2017-01-06 06:08] LABS: RED CELL DISTRIBUTION WIDTH 16.5 % (11.5-14.5)
[2017-01-06] MEDS ORDERED: POTASSIUM CHLORIDE 8 MEQ PO SCH (09:00)
[2017-01-06] MEDS ORDERED: ENOXAPARIN SODIUM 30 MG/0.3 ML SYR SUBCUT SCH (09:30)
--- NOTE | 2017-01-06 09:33 | PROGRESS NOTE: IM SOAP ---
IM: PN Subjective General: fatigue, confusion (He states taht he was very confused lat night and thought that he was at home and his was in the kitchen.), pain, no good appetite, no diaphoresis, no fever, no chills Cardiovascular: no chest pain, no chest pressure, no palpitations, no dizziness Respiratory: no cough, no SOB Gastrointestinal: no abdominal pain, no nausea, no vomiting (Lumbar pain 2' compression fx.) Musculoskeletal: pain Neurological: numbness (Chroninc numbness and tingling of RLE from old injury.) , tingling, limb weakness IM: PN Objective Exam - I&O/Vital Signs I&O: Intake & Output 01/05/17 01/06/17 01/06/17 21:59 05:59 13:59 Weight 63 kg Other: Urine Appearance Clear Urine Color Light Carmenza Voiding Method Urinal Vital Signs: Last Vital Signs Temp 36.4 C 01/06/17 06:32 Pulse 62 01/06/17 06:32 Resp 20 01/06/17 06:32 BP 118/62 01/06/17 06:32 Pulse Ox 95 01/06/17 06:32 Oxygen Flow Rate 3 Oxygen Delivery Method Nasal Cannula - Constitutional General appearance: Present: cooperative, mild distress (Significant distress 2 ' LBP with recling the bed.) - Head Head exam: Present: atraumatic, normal inspection, normocephalic - Eye Eye exam: Present: EOMI, PERRL - ENT ENT exam: Present: mucous membranes moist - Neck Neck exam: Present: full ROM - Respiratory Respiratory exam: Present: rales (Throughout with fair aeration.). Absent: accessory muscle use, respiratory distress, wheezes - Cardiovascular Cardiovascular exam: Present: bradycardia, RRR, systolic murmur (High-pitched systolic murmurs. ) - GI/Abdominal GI/Abdominal exam: Present: distended (Mild. ), normal bowel sounds. Absent: tenderness - Extremities Exam Extremities exam: Present: other (Chroninc venous stasis changes. ). Absent: calf tenderness, Kinza's Sign, edema - Back Exam Back exam: Present: paraspinal tenderness (R lumbar area) - Neurological Exam Neurological exam: Present: alert, CN II-XII intact - Psychiatric Psychiatric exam: Present: anxious (Mildly anxious. ), normal mood - Allied Health Notes Allied health notes reviewed: case management, nursing - Lab Labs: Laboratory Last Values WBC 7.6 X 10^3uL (3.9-10.7) 01/06/17 05:20 RBC 4.24 X 10^6uL (4.20-6.10) 01/06/17 05:20 Hgb 13.1 g/dL (14.0-18.0) L 01/06/17 05:20 Hct 38.7 % (42.0-54.0) L 01/06/17 05:20 MCV 91.3 fL (80.0-100.0) 01/06/17 05:20 MCH 30.9 pg (29.0-35.0) 01/06/17 05:20 MCHC 33.8 g/dL (32.0-36.0) 01/06/17 05:20 RDW 16.5 % (11.5-14.5) H 01/06/17 05:20 Plt Count 167 X 10^3uL (130-440) 01/06/17 05:20 MPV 9.2 fL (7.4-10.4) 01/06/17 05:20 Neutrophils % 77.1 % (54.0-75.0) H 01/06/17 05:20 Lymphocytes % 13.0 % (20.0-40.0) L 01/06/17 05:20 Eosinophils % 1.0 % (0.0-6.0) 01/06/17 05:20 Basophils % 0.6 % (0.0-2.0) 01/06/17 05:20 Neutrophils # 5.9 X 10^3uL (2.6-6.7) 01/06/17 05:20 Lymphocytes # 1.0 X 10^3uL (0.8-3.8) 01/06/17 05:20 Monocytes 8.3 % (2.0-10.0) 01/06/17 05:20 Monocytes # 0.6 X 10^3uL (0.2-1.0) 01/06/17 05:20 Eosinophils # 0.1 X 10^3uL (0.0-0.4) 01/06/17 05:20 Basophils # 0.0 X 10^3uL (0.0-0.1) 01/06/17 05:20 PT 39.5 sec (13.0-16.6) H 01/06/17 05:20 INR 3.4 01/06/17 05:20 Sodium 141 mmol/L (137-145) 01/06/17 05:20 Potassium 4.4 mmol/L (3.5-5.1) 01/06/17 05:20 Chloride 106 mmol/L (98-107) 01/06/17 05:20 Carbon Dioxide 26 mmol/L (22-30) 01/06/17 05:20 BUN 33 mg/dL (9-20) H 01/06/17 05:20 Creatinine 1.6 mg/dL (0.7-1.3) H 01/06/17 05:20 GFR Calculation Not Reportable 01/06/17 05:20 Glucose 89 mg/dL (70-100) 01/06/17 05:20 Calcium 9.3 mg/dL (8.4-10.2) 01/06/17 05:20 Total Bilirubin 0.9 mg/dL (0.2-1.3) 01/05/17 19:37 Direct Bilirubin 0.3 mg/dL (0.0-0.4) 01/05/17 19:37 AST 40 U/L (17-59) 01/05/17 19:37 ALT 41 U/L (21-72) 01/05/17 19:37 Alkaline Phosphatase 146 U/L (38-126) H 01/05/17 19:37 Total Protein 7.6 g/dL (6.3-8.2) 01/05/17 19:37 Albumin 4.1 g/dL (3.5-5.0) 01/05/17 19:37 Assessment and Plan - Date of Encounter Date of Encounter: 01/06/17 (1) Compression fracture Status: Acute Assessment and plan: Acute L2 compression fracture seen on MRI. Subacute T10 compression fracture. Morphine sulfate for pain. Physical therapy. Slow progress. Anticipate 1-2 more inpatient days and then possibly swing bed stay. Will need to be independent with ambulation prior to discharge. Long discussion with staff and patient's . Current Visit: Yes (2) Compression fracture of body of thoracic vertebra Status: Acute Assessment and plan: As above. Subacute T10 compression fracture. Current Visit: Yes (3) Hypoxemia Status: Acute Assessment and plan: CXR shows bilateral infiltrates. However, he clinically does not seem to have pneumonia with no fever, cough, or elevated WBC. This seems more likely related to CHF fluid overload. BCx. U/A and UCX. Continue oxygen. Azithromycin and hold on Rocephin for now until tomorrow after IV Lasix given. IS. RT consult. Current Visit: Yes (4) CHF (congestive heart failure), NYHA class IV Status: Acute Assessment and plan: BNP elevated above baseline. He is normally on 3L O2 only at night. Now, he is requiring 3L 24 hours daily. Give Lasix 4omg IV this morning. Follow strict I/Os and daily weights. Cardiology consultation tomorrow. Current Visit: No (5) Pneumonia Status: Acute Assessment and plan: Single portable view of chest shows new development of bibasilar infiltrates s compared to CXR 10/27. He is at risk of pneumonia given compression fractures and presumed limited inspiration. However, as above, he has not had any F/C/S, cough, URI symptoms, elevated WBC count, or SOB. BCx, follow CBC, sputum cx, azithromycin and add Rocephin if symptoms worsen, RT consult, IS. Check CRP and ESR. Current Visit: Yes (6) Mitral stenosis Status: Chronic Assessment and plan: Severe mitral stenosis and s/p balloon valvuloplasty. He is followed very closely by cardiology with planned assessment in valve clinic. Current Visit: Yes (7) Aortic stenosis Status: Chronic Assessment and plan: Severe. Also will be evaluated in valve clinic when medically stable. Current Visit: Yes (8) Coronary artery disease Status: Chronic Assessment and plan: Multivessel disease. S/P 3V CABG. Overall stable with no anginal symptoms. Current Visit: Yes (9) Atrial fibrillation Status: Chronic Assessment and plan: Currently in NSR at bradycardic rate. Check EKG. Current Visit: Yes - Time Spent With Patient Total time spent with greater than 50% in coordination of care (as documented) at patient's floor/unit and/or counseling patient: Greater than 35 minutes Quality Questions - VTE Prophylaxis Assessment VTE Present on Admission?: No Patient at risk for venous thromboembolism?: Yes VTE Risk Level: High Risk Pharmaceutical VTE prophylaxis contraindication reason: N/A- VTE prophylaxsis ordered Mechanical VTE prophylaxis contraindication reason: N/A- VTE prophylaxsis ordered (4) CHF (congestive heart failure), NYHA class IV Qualifiers: Congestive heart failure type: systolic Congestive heart failure chronicity: acute on chronic Qualified Code(s): I50.23 - Acute on chronic systolic ( congestive) heart failure (5) Pneumonia Qualifiers: Pneumonia type: due to unspecified organism Lung location: lower lobe of lung (6) Mitral stenosis Qualifiers: Cardiac valve disease etiology: nonrheumatic Qualified Code(s): I34.2 - Nonrheumatic mitral (valve) stenosis (7) Aortic stenosis Qualifiers: Cardiac valve disease etiology: etiology unspecified Qualified Code(s): I35.0 - Nonrheumatic aortic (valve) stenosis (8) Coronary artery disease Qualifiers: Coronary Disease-Associated Artery/Lesion type: [place] artery Solomon vs. transplanted heart: [place] heart Associated angina: without angina Qualified Code(s): I25.10 - Atherosclerotic heart disease of [place] coronary artery without angina pectoris (9) Atrial fibrillation Qualifiers: Atrial fibrillation type: paroxysmal Qualified Code(s): I48.0 - Paroxysmal atrial fibrillation
[2017-01-06] MEDS: FAMOTIDINE 20 MG TABLET PO SCH ×2 (09:41→17:15)
[2017-01-06] MEDS: FUROSEMIDE 20 MG TABLET PO SCH (09:41)
[2017-01-06] MEDS: PROBIOTIC 1 CAP CAPSULE PO SCH (09:42)
[2017-01-06] MEDS: POTASSIUM CHLORIDE ER 10 MEQ TABLET PO SCH (09:42)
[2017-01-06] MEDS: LIDOCAINE 5% 1 PATCH PATCH TOPICAL SCH (09:43)
[2017-01-06] MEDS ORDERED: AZITHROMYCIN 250 MG TABLET PO ONE (10:32)
[2017-01-06] MEDS: FUROSEMIDE 40 MG/4 ML VIAL IV SCH ×2 (11:22→11:23)
[2017-01-06] MEDS: predniSONE 5 MG TABLET PO SCH (11:23)
[2017-01-06] MEDS ORDERED: AZITHROMYCIN 250 MG TABLET PO SCH (12:36)
[2017-01-06 12:45] LABS: URINE MUCUS NONE SEEN (Up to 25%); URINE RBC NONE SEEN (0-5/hpf)
[2017-01-06 12:55] LABS: URINE APPEARANCE SLIGHTLY CLOUDY; URINE BACTERIA NONE SEEN (<10/hpf); URINE BILIRUBIN NEGATIVE (NEGATIVE); URINE BLOOD NEGATIVE (NEGATIVE); URINE COLOR YELLOW; URINE GLUCOSE NORMAL (NEGATIVE); URINE KETONE NEGATIVE (NEGATIVE); URINE LEUKOCYTE ESTERASE NEGATIVE (NEGATIVE); URINE NITRITE NEGATIVE (NEGATIVE); URINE PH 5.5 (5-7); URINE PROTEIN NEGATIVE (NEG - TRACE); URINE SPECIFIC GRAVITY 1.015 (0.001-1.035); URINE SQUAMOUS EPITHELIAL CELL 0-5/hpf (<= 15/hpf); URINE UROBILINOGEN 0.2mg/dL (Normal) (NEG-1mg/dL); URINE WBC 0-4/hpf (0-4/hpf)
[2017-01-06] MEDS: CALCITONIN,SALMON 1 SPRAY BOTTLE NASAL SCH (14:18)
[2017-01-06] MEDS ORDERED: WARFARIN SODIUM 2 MG TABLET PO SCH (16:00)
--- NOTE | 2017-01-06 16:52 | RADIOLOGY REPORT ---
A single portable view of the chest is compared with prior exam dated 2016. The exam demonstrates a limited degree of inspiration. Considering this the heart and vessels are unremarkable. There has been development of bibasilar infiltrates. No fluid or pneumothorax is seen. IMPRESSION: Bibasilar infiltrates. MTDD
[2017-01-06] MEDS ORDERED: FERROUS SULFATE 325 MG TABLET PO SCH (18:00)
[2017-01-06] MEDS: AMIODARONE HCL 200 MG TABLET PO SCH (20:41)
[2017-01-06] MEDS: ACETAMINOPHEN 500 MG TABLET PO PRN (20:42)
[2017-01-07] MEDS ORDERED: FUROSEMIDE 20 MG/2 ML VIAL IV ONE (07:00)
[2017-01-07 07:12] LABS: BASOPHILS 0.5 % (0.0-2.0); EOSINOPHILS 1.7 % (0.0-6.0); EOSINOPHILS# 0.1 X 10^3uL (0.0-0.4); HEMATOCRIT 34.8 % (42.0-54.0); HEMOGLOBIN 11.3 g/dL (14.0-18.0); LYMPHOCYTES 13.8 % (20.0-40.0); LYMPHOCYTES# 0.8 X 10^3uL (0.8-3.8); MEAN CELL VOLUME 91.4 fL (80.0-100.0); MEAN CORPUS. HGB CONCENTRATION 32.4 g/dL (32.0-36.0); MEAN CORPUSCULAR HEMOGLOBIN 29.6 pg (29.0-35.0); MEAN PLATELET VOLUME 8.8 fL (7.4-10.4); MONOCYTES 8.6 % (2.0-10.0); MONOCYTES# 0.5 X 10^3uL (0.2-1.0); NEUTROPHILS 75.4 % (54.0-75.0); NEUTROPHILS# 4.3 X 10^3uL (2.6-6.7); PLATELET COUNT 140 X 10^3uL (130-440); WHITE BLOOD COUNT 5.7 X 10^3uL (3.9-10.7)
[2017-01-07 07:23] LABS: INR 2.6
[2017-01-07 07:27] LABS: BLOOD UREA NITROGEN 40 mg/dL (9-20); C-REACTIVE PROTEIN 56.3 mg/L (<10.0); CALCIUM 8.8 mg/dL (8.4-10.2); CHLORIDE 108 mmol/L (98-107); GLUCOSE 101 mg/dL (70-100); POTASSIUM 3.8 mmol/L (3.5-5.1); SODIUM 140 mmol/L (137-145)
[2017-01-07 07:53] LABS: ERYTHROCYTE SEDIMENTATION RATE 72 MM/HR (0-10)
[2017-01-07] MEDS ORDERED: LEVOFLOXACIN 250 MG TABLET PO SCH (09:00)
[2017-01-07] MEDS: ACETAMINOPHEN 500 MG TABLET PO PRN ×2 (09:07→13:55)
[2017-01-07] MEDS: PROBIOTIC 1 CAP CAPSULE PO SCH (09:07)
[2017-01-07] MEDS: FUROSEMIDE 20 MG TABLET PO SCH (09:08)
[2017-01-07] MEDS: LIDOCAINE 5% 1 PATCH PATCH TOPICAL SCH (09:09)
[2017-01-07] MEDS: POTASSIUM CHLORIDE ER 10 MEQ TABLET PO SCH (09:09)
[2017-01-07] MEDS: FAMOTIDINE 20 MG TABLET PO SCH (09:09)
--- NOTE | 2017-01-07 09:45 | PROGRESS NOTE: IM SOAP ---
IM: PN Subjective General: fatigue, confusion (He states taht he was very confused lat night and thought that he was at home and his was in the kitchen.), pain (Minimal to no improvement. He was not able to get up with PT yesterday.), no good appetite , no diaphoresis, no fever, no chills Cardiovascular: no chest pain, no chest pressure, no palpitations, no dizziness Respiratory: no cough, no SOB Gastrointestinal: no abdominal pain, no nausea, no vomiting Musculoskeletal: pain Neurological: numbness (Chronic numbness and tingling of RLE from old injury.), tingling, limb weakness IM: PN Objective Exam - I&O/Vital Signs I&O: Intake & Output 01/06/17 01/07/17 01/07/17 21:59 05:59 13:59 Intake Total 840 Output Total 575 Balance 265 Intake: Oral 840 Output: Urine 575 Other: Urine Appearance Clear Urine Color Straw Voiding Method Urinal # Voids 4 Vital Signs: Last Vital Signs Temp 36.5 C 01/07/17 06:37 Pulse 50 L 01/07/17 06:37 Resp 16 01/07/17 06:37 BP 113/60 01/07/17 06:37 Pulse Ox 97 01/07/17 09:11 Oxygen Flow Rate 1 Oxygen Delivery Method Room Air - Constitutional General appearance: Present: cooperative, mild distress (Significant distress 2 ' LBP with recling the bed.) - Head Head exam: Present: atraumatic, normal inspection, normocephalic - Eye Eye exam: Present: EOMI, PERRL - ENT ENT exam: Present: mucous membranes moist - Neck Neck exam: Present: full ROM - Respiratory Respiratory exam: Present: rales (Throughout with fair aeration.). Absent: accessory muscle use, respiratory distress, wheezes - Cardiovascular Cardiovascular exam: Present: bradycardia, RRR, systolic murmur (High-pitched systolic murmurs. ) - GI/Abdominal GI/Abdominal exam: Present: distended (Mild. ), normal bowel sounds. Absent: tenderness - Extremities Exam Extremities exam: Present: calf tenderness (Chronic RLE tenderness with spasms, numbness, and tingling, particulalry with palpation.), other (Chronic venous stasis changes. ). Absent: Kinza's Sign, edema - Back Exam Back exam: Present: paraspinal tenderness (R lumbar area), vertebral tenderness (Lumbar area.) - Neurological Exam Neurological exam: Present: alert (However, he has significant sundowning at night of which he is aware.), CN II-XII intact, reflexes normal - Psychiatric Psychiatric exam: Present: anxious (Mildly anxious. ), depressed (Tearful about being away from his .) - Allied Health Notes Allied health notes reviewed: case management, nursing, RT - Lab Labs: Laboratory Last Values WBC 5.7 X 10^3uL (3.9-10.7) 01/07/17 06:50 RBC 3.80 X 10^6uL (4.20-6.10) L 01/07/17 06:50 Hgb 11.3 g/dL (14.0-18.0) L 01/07/17 06:50 Hct 34.8 % (42.0-54.0) L 01/07/17 06:50 MCV 91.4 fL (80.0-100.0) 01/07/17 06:50 MCH 29.6 pg (29.0-35.0) 01/07/17 06:50 MCHC 32.4 g/dL (32.0-36.0) 01/07/17 06:50 RDW 16.0 % (11.5-14.5) H 01/07/17 06:50 Plt Count 140 X 10^3uL (130-440) 01/07/17 06:50 MPV 8.8 fL (7.4-10.4) 01/07/17 06:50 Neutrophils % 75.4 % (54.0-75.0) H 01/07/17 06:50 Lymphocytes % 13.8 % (20.0-40.0) L 01/07/17 06:50 Eosinophils % 1.7 % (0.0-6.0) 01/07/17 06:50 Basophils % 0.5 % (0.0-2.0) 01/07/17 06:50 Neutrophils # 4.3 X 10^3uL (2.6-6.7) 01/07/17 06:50 Lymphocytes # 0.8 X 10^3uL (0.8-3.8) 01/07/17 06:50 Monocytes 8.6 % (2.0-10.0) 01/07/17 06:50 Monocytes # 0.5 X 10^3uL (0.2-1.0) 01/07/17 06:50 Eosinophils # 0.1 X 10^3uL (0.0-0.4) 01/07/17 06:50 Basophils # 0.0 X 10^3uL (0.0-0.1) 01/07/17 06:50 ESR 72 MM/HR (0-10) H 01/07/17 06:50 PT 40.8 sec (13.0-16.6) H 01/07/17 06:50 INR 2.6 01/07/17 06:50 Sodium 140 mmol/L (137-145) 01/07/17 06:50 Potassium 3.8 mmol/L (3.5-5.1) 01/07/17 06:50 Chloride 108 mmol/L (98-107) H 01/07/17 06:50 Carbon Dioxide 28 mmol/L (22-30) 01/07/17 06:50 BUN 40 mg/dL (9-20) H 01/07/17 06:50 Creatinine 1.7 mg/dL (0.7-1.3) H 01/07/17 06:50 GFR Calculation Not Reportable 01/07/17 06:50 Glucose 101 mg/dL (70-100) H 01/07/17 06:50 Calcium 8.8 mg/dL (8.4-10.2) 01/07/17 06:50 Total Bilirubin 0.9 mg/dL (0.2-1.3) 01/05/17 19:37 Direct Bilirubin 0.3 mg/dL (0.0-0.4) 01/05/17 19:37 AST 40 U/L (17-59) 01/05/17 19:37 ALT 41 U/L (21-72) 01/05/17 19:37 Alkaline Phosphatase 146 U/L (38-126) H 01/05/17 19:37 C-Reactive Protein 56.3 mg/L (<10.0) H 01/07/17 06:50 NT-Pro-B Natriuret Pep 6600 pg/mL (<450) H 01/07/17 06:50 Total Protein 7.6 g/dL (6.3-8.2) 01/05/17 19:37 Albumin 4.1 g/dL (3.5-5.0) 01/05/17 19:37 Urine Color Yellow 01/06/17 10:30 Urine Appearance Slightly cloudy 01/06/17 10:30 Urine pH 5.5 (5-7) 01/06/17 10:30 Ur Specific Herman 1.015 (0.001-1.035) 01/06/17 10:30 Urine Protein Negative (NEG - TRACE) 01/06/17 10:30 Urine Ketones Negative (NEGATIVE) 01/06/17 10:30 Urine Blood Negative (NEGATIVE) 01/06/17 10:30 Urine Nitrate Negative (NEGATIVE) 01/06/17 10:30 Urine Bilirubin Negative (NEGATIVE) 01/06/17 10:30 Urine Urobilinogen 0.2mg/dl (normal) (NEG-1mg/dL) 01/06/17 10:30 Ur Leukocyte Esterase Negative (NEGATIVE) 01/06/17 10:30 Urine RBC None seen (0-5/hpf) 01/06/17 10:30 Urine WBC 0-4/hpf (0-4/hpf) 01/06/17 10:30 Ur Squamous Epith Cells 0-5/hpf (<= 15/hpf) 01/06/17 10:30 Urine Bacteria None seen (<10/hpf) 01/06/17 10:30 Urine Mucus None seen (Up to 25%) 01/06/17 10:30 Urine Glucose Normal (NEGATIVE) 01/06/17 10:30 Assessment and Plan - Date of Encounter Date of Encounter: 01/07/17 (1) Compression fracture Status: Acute Assessment and plan: Acute L2 compression fracture seen on MRI. Subacute T10 compression fracture. Morphine sulfate for pain. Physical therapy when he is able to sit and stand. Slow progress. Anticipate 1-2 more inpatient days and then possibly swing bed stay. Will need to be independent with ambulation prior to discharge. Long discussion with staff and patient's . We discussed the possibility of vertebroplasty/kyphoplasty which could not be done at this hospital. (2) Compression fracture of body of thoracic vertebra Status: Chronic Assessment and plan: As above. Subacute T10 compression fracture. (3) Hypoxemia Status: Acute Assessment and plan: CXR shows bilateral infiltrates. However, he clinically does not seem to have pneumonia with no fever, cough, or elevated WBC. This seems more likely related to CHF fluid overload. BCx. U/A and UCX. Continue oxygen. Azithromycin and hold on Rocephin for now until tomorrow after IV Lasix given. IS. RT consult. (4) CHF (congestive heart failure), NYHA class IV Status: Chronic Assessment and plan: BNP elevated above baseline. He is normally on 3L O2 only at night. Now, he is requiring 3L 24 hours daily. Give Lasix 4omg IV this morning. Follow strict I/Os and daily weights. Cardiology consultation tomorrow. (5) Pneumonia Status: Acute Assessment and plan: Single portable view of chest shows new development of bibasilar infiltrates as compared to CXR 10/27. He is at risk of pneumonia given compression fractures and presumed limited inspiration. However, as above, he has not had any F/C/S, cough, URI symptoms, elevated WBC count, or SOB. BCx, follow CBC, sputum cx, azithromycin and add Rocephin if symptoms worsen, RT consult, IS. Check CRP and ESR. (6) Mitral stenosis Status: Chronic Assessment and plan: Severe mitral stenosis and s/p balloon valvuloplasty. He is followed very closely by cardiology with planned assessment in valve clinic when medically stable. (7) Aortic stenosis Status: Chronic Assessment and plan: Severe. Also will be evaluated in valve clinic when medically stable. (8) Coronary artery disease Status: Chronic Assessment and plan: Multivessel disease. S/P 3V CABG. Overall stable with no anginal symptoms. (9) Atrial fibrillation Status: Chronic Assessment and plan: Currently in NSR at bradycardic rate. Check EKG. (10) Supratherapeutic INR Status: Acute Assessment and plan: Admitted with supratherapeutic INR of 4.0 and 3.4 this morning. Continue to hold Coumadin. - Time Spent With Patient Total time spent with greater than 50% in coordination of care (as documented) at patient's floor/unit and/or counseling patient: Greater than 35 minutes (Including patient, his , and medical staff.) Estimated anticipated discharge: 2-3 days and then swing bed Quality Questions - VTE Prophylaxis Assessment VTE Present on Admission?: No Patient at risk for venous thromboembolism?: Yes VTE Risk Level: High Risk Pharmaceutical VTE prophylaxis contraindication reason: N/A- VTE prophylaxsis ordered Mechanical VTE prophylaxis contraindication reason: N/A- VTE prophylaxsis ordered (4) CHF (congestive heart failure), NYHA class IV Qualifiers: Congestive heart failure type: systolic Congestive heart failure chronicity: acute on chronic Qualified Code(s): I50.23 - Acute on chronic systolic ( congestive) heart failure (5) Pneumonia Qualifiers: Pneumonia type: due to unspecified organism Lung location: lower lobe of lung (6) Mitral stenosis Qualifiers: Cardiac valve disease etiology: nonrheumatic Qualified Code(s): I34.2 - Nonrheumatic mitral (valve) stenosis (7) Aortic stenosis Qualifiers: Cardiac valve disease etiology: etiology unspecified Qualified Code(s): I35.0 - Nonrheumatic aortic (valve) stenosis (8) Coronary artery disease Qualifiers: Coronary Disease-Associated Artery/Lesion type: [place] artery [place] vs. transplanted heart: [place] heart Associated angina: without angina Qualified Code(s): I25.10 - Atherosclerotic heart disease of [place] coronary artery without angina pectoris (9) Atrial fibrillation Qualifiers: Atrial fibrillation type: paroxysmal Qualified Code(s): I48.0 - Paroxysmal atrial fibrillation
[2017-01-07 12:19] VITALS: BP 110/65; PULSE 49; RESP 18; TEMP 97.5; O2SAT 90
[2017-01-07] MEDS: predniSONE 5 MG TABLET PO SCH (12:51)
[2017-01-07] MEDS: CALCITONIN,SALMON 1 SPRAY BOTTLE NASAL SCH (12:52)
--- NOTE | 2017-01-07 14:54 | DC SUMMARY: IM Note ---
Discharge Summary: IM/Peds Provider: Date of Admission: 01/05/17 Admitting Provider: CARLA CANTU MD Attending Provider: MARIA G PRETTY MD Discharging Provider: CARLA CANTU MD Primary Care Provider: Discharge Date: 01/07/17 Consults: 01/07/17 07:00 Cardiology Consult [CONS] Routine Reason: Valvular dz; CHF. - Diagnosis (1) Compression fracture Status: Acute (2) Compression fracture of body of thoracic vertebra Status: Chronic (3) Hypoxemia Status: Acute (4) CHF (congestive heart failure), NYHA class IV Status: Chronic Qualifiers: Congestive heart failure type: systolic Congestive heart failure chronicity : acute on chronic Qualified Code(s): I50.23 - Acute on chronic systolic ( congestive) heart failure (5) Pneumonia Status: Acute Qualifiers: Pneumonia type: due to unspecified organism Lung location: lower lobe of lung (6) Mitral stenosis Status: Chronic Qualifiers: Cardiac valve disease etiology: nonrheumatic Qualified Code(s): I34.2 - Nonrheumatic mitral (valve) stenosis (7) Aortic stenosis Status: Chronic Qualifiers: Cardiac valve disease etiology: etiology unspecified Qualified Code(s): I35.0 - Nonrheumatic aortic (valve) stenosis (8) Coronary artery disease Status: Chronic Qualifiers: Coronary Disease-Associated Artery/Lesion type: [place] artery [place] vs. transplanted heart: [place] heart Associated angina: without angina Qualified Code(s): I25.10 - Atherosclerotic heart disease of [place] coronary artery without angina pectoris (9) Atrial fibrillation Status: Chronic Qualifiers: Atrial fibrillation type: paroxysmal Qualified Code(s): I48.0 - Paroxysmal atrial fibrillation (10) Anemia Status: Acute Qualifiers: Anemia type: iron deficiency - Time Spent with Patient Total time spent providing and/or coordinating discharge services: Time with patient DS: Greater than 30 minutes (I have spoken with Alex, his , his dtr, and hospital staff at length.) Discharge - Patient/Caregiver Discharge Instructions Activity Level: As tolerated. Diet: Cardiac. Follow up: SERGIO GARVEY [DO] - 01/15/17 8:00 am (In [place] office at [address] ) Overall discharge status: patient is not back to baseline Print Language: KHMER Care Plan Goals: For L1 Kyphoplasty, patient will need to be NPO after Midnight on 01/15/16. Will need to be off Coumadin for 5 days, INR should be 1.2 or less. Patient will be sedated and will need someone to drive him to and from the procedure. Arrive in [place] office at 0730. Disposition: [facility] Discharge Summary Data - Medication History Medication History: Home Medications Furosemide [Lasix*] 40 mg PO DAILY 09/18/16 Potassium Chloride [Potassium Chloride] 8 meq PO DAILY 09/18/16 Probiotic [Sophia-Q Capsule] 1 cap PO DAILY 09/18/16 Warfarin Sodium [Coumadin*] 1 - 2.5 mg PO DAILY@1600 09/18/16 aspirin [Ecotrin] 81 mg PO HS 09/18/16 metoprolol TARTRATE [Metoprolol Tartrate*] 25 mg PO 1200,2100 09/18/16 Acetaminophen [Tylenol X-Strength] 1,000 mg PO TID PRN 01/05/17 Amiodarone HCl [Cordarone*] 200 mg PO HS 01/05/17 Calcitonin,[place] [Fortical] 1 spray NASAL DAILY@1200 01/05/17 Famotidine [Pepcid] 20 mg PO 0900,1800 01/05/17 Ferrous Sulfate [Ferrous Sulfate*] 325 mg PO DAILY@1800 01/05/17 Lidocaine 5% [Lidoderm 5%*] 1 patch TOPICAL DAILY 01/05/17 Polyethylene Glycol 3350 [Miralax*] 1 packet PO HS PRN 01/05/17 oxyCODONE HCL IR [Oxy Ir*] 2.5 - 5 mg PO TID PRN 01/05/17 predniSONE [Deltasone*] 5 mg PO DAILY@1200 01/05/17 Inpatient Medications 01/05/17 20:07 Ondansetron HCl [Zofran] 4 mg IV Q6H PRN 01/06/17 09:00 Potassium Chloride ER [Micro-K] 10 meq PO DAILY 01/06/17 16:00 Warfarin Sodium [Coumadin] 1 mg PO ONCE DAILY @1600 01/07/17 09:00 Levofloxacin [Levaquin] 750 mg PO Q48H Procedures and tests throughout hospitalization: Completed Lab Orders 01/06/17 05:20 BNP,NT-PRO [CHEM] Stat 01/06/17 10:30 urinalysis [UA W/ MICRO -CULTURE IF IND] [URINE] Stat 01/07/17 06:50 BMP [BASIC METABOLIC PANEL] [CHEM] AMDRAW BNP,NT-PRO [CHEM] Stat C-REACTIVE PROTEIN [CHEM] Stat CBC AUTO DIF, MDIF/RMOR IF IND [HEM] AMDRAW ERYTHROCYTE SEDIMENTATION RATE [HEM] Stat PROTIME/INR [HEM] Stat Completed Imaging Orders 01/06/17 07:00 [id number] [CXR 2V 78416] [RAD] Routine Pending Orders 01/05/17 20:07 Ondansetron HCl [Zofran] 4 mg IV Q6H PRN 01/06/17 09:00 Potassium Chloride ER [Micro-K] 10 meq PO DAILY 01/06/17 09:19 Activity [Activity: Ambulate with Assist] TID 01/06/17 10:30 URINE CULTURE [RM] Routine 01/06/17 11:25 BLOOD CULTURE [BC] Stat 01/06/17 16:00 Warfarin Sodium [Coumadin] 1 mg PO ONCE DAILY @1600 01/06/17 18:22 EKG ONCE 01/06/17 18:24 Obtain weight 0600 01/06/17 20:07 Respiratory Therapy Consult [RT] Routine 01/06/17 20:08 Incentive Spirometry Q1H Teach: Incentive Spirometry . 01/07/17 07:00 Cardiology Consult [CONS] Routine 01/07/17 09:00 Levofloxacin [Levaquin] 750 mg PO Q48H Labs on day of discharge: Labs from last 24 hours 01/07/17 06:50 WBC 5.7 RBC 3.80 L Hgb 11.3 L Hct 34.8 L MCV 91.4 MCH 29.6 MCHC 32.4 RDW 16.0 H Plt Count 140 MPV 8.8 Neutrophils % 75.4 H Lymphocytes % 13.8 L Eosinophils % 1.7 Basophils % 0.5 Neutrophils # 4.3 Lymphocytes # 0.8 Monocytes 8.6 Monocytes # 0.5 Eosinophils # 0.1 Basophils # 0.0 ESR 72 H PT 40.8 H INR 2.6 Sodium 140 Potassium 3.8 Chloride 108 H Carbon Dioxide 28 BUN 40 H Creatinine 1.7 H GFR Calculation Not Reportable Glucose 101 H Calcium 8.8 C-Reactive Protein 56.3 H NT-Pro-B Natriuret Pep 6600 H Preliminary micro results at discharge 01/06/17 11:25 Blood Culture - Preliminary Blood NO GROWTH TO DATE 01/06/17 10:28 Blood Culture - Preliminary Blood NO GROWTH TO DATE 01/06/17 10:30 Urine Culture - Preliminary Urine,Voided NO GROWTH TO DATE - Impressions Alex has multiple medical problems. He was seen 12/19/16 as an outpatient for LBP. Plain view x-rays showed T10 compression fracture of uncertain age. He was discharged home on Oxycodone, Lidocaine patch, and Miacalcin NS. He returned to the office on 01/05/17 with an acute worsening of his pain, but in the lumbar area. MRI revealed acute L2 compression fracture. He was admitted for intractable back pain. He did not improve with IV Morphine sulfate. he was not able to get out of bed and ;participate with PT. He developed hypoxemia, bilateral LL infiltrates, and mild CHF exacerbation. He was treated with IVB Lasix and Levaquin (penicillin allergy). The decision was made to pursue vertebroplasty/kyphoplasty for definitive treatment. Given his multiple medical problems, he is much better served at a facility with a higher level of care with specialist available. INR elevated upon admission and no Coumadin given throughout hospital stay. IM: Discharge Physical Exam - I&O/Vital Signs I&O: Intake & Output 01/07/17 01/07/17 01/07/17 05:59 13:59 21:59 Weight 66.905 kg Other: Urine Appearance Clear Urine Color Straw Voiding Method Urinal Vital Signs: Last Vital Signs Temp 36.4 C L 01/07/17 11:00 Pulse 49 L 01/07/17 11:00 Resp 18 01/07/17 11:00 BP 110/65 01/07/17 11:00 Pulse Ox 90 01/07/17 11:00 Oxygen Flow Rate 2 Oxygen Delivery Method Nasal Cannula - Constitutional General appearance: Present: cooperative, mild distress (Significant distress 2 ' LBP with recling the bed.) - Head Head exam: Present: atraumatic, normal inspection, normocephalic - Eye Eye exam: Present: EOMI, PERRL - ENT ENT exam: Present: mucous membranes moist - Neck Neck exam: Present: full ROM - Respiratory Respiratory exam: Present: decreased breath sounds (Bases.), rales (Throughout with fair aeration.). Absent: accessory muscle use, respiratory distress, wheezes - Cardiovascular Cardiovascular exam: Present: bradycardia, RRR, systolic murmur (High-pitched systolic murmurs. ) - GI/Abdominal GI/Abdominal exam: Present: distended (Mild. ), normal bowel sounds. Absent: tenderness - Extremities Exam Extremities exam: Present: other ([place] venous stasis changes. ). Absent: calf tenderness, Kinza's Sign, edema - Back Exam Back exam: Present: paraspinal tenderness (R lumbar area) - Neurological Exam Neurological exam: Present: alert, altered (He has had significant confusion and sundowning. He just realized that he was in [place] just prior to D/C.) , CN II-XII intact - Psychiatric Psychiatric exam: Present: anxious (Mildly anxious. ), normal mood - Allied Health Notes Allied health notes reviewed: case management, nursing, PT, RT, social work
== END 2017-01-07 15:00 | disposition short-term general hospital (02) | DRG 542 ==
LOC: ER 13:31 → IN 17:24 → OBSVTOIN 19:38
PROVIDERS: ADMIT Family Medicine; ATTEND Internal Medicine
DX: M80.08XA Age-related osteoporosis with current pathological fracture, vertebra(e), initial encounter for fracture (principal); W01.0XXA Fall on same level from slipping, tripping and stumbling without subsequent striking against object, initial encounter; M10.9 Gout, unspecified; M35.3 Polymyalgia rheumatica; I50.9 Heart failure, unspecified; M81.0 Age-related osteoporosis without current pathological fracture; I50.32 Chronic diastolic (congestive) heart failure; J18.9 Pneumonia, unspecified organism; E78.5 Hyperlipidemia, unspecified; I48.2 Chronic atrial fibrillation; I25.10 Atherosclerotic heart disease of native coronary artery without angina pectoris; D50.9 Iron deficiency anemia, unspecified; N18.9 Chronic kidney disease, unspecified; I12.9 Hypertensive chronic kidney disease with stage 1 through stage 4 chronic kidney disease, or unspecified chronic kidney disease; G50.0 Trigeminal neuralgia; K59.00 Constipation, unspecified; G47.34 Idiopathic sleep related nonobstructive alveolar hypoventilation; J98.4 Other disorders of lung; Z79.899 Other long term (current) drug therapy; Z99.81 Dependence on supplemental oxygen
CPT/HCPCS: 36415; 71020; 72148; 80048; 80076; 81001; 83880; 85025; 85610; 85651; 86140; 87040; 87086; 93005; 96361; 96374; 96376; 99285; G8981; G8982; J1650; J1940; J2270; J7512; Q0144

== ENCOUNTER 2017-01-09 11:58 | Inpatient (IN) | payer MEDICARE ==
[2017-01-09] MEDS ORDERED: HOME MEDICATION LIST NEEDED 1 EA EACH MISC ONE (19:55)
[2017-01-09] MEDS ORDERED: POLYETHYLENE GLYCOL 3350 17 GM POWD.PACK PO PRN (20:03)
[2017-01-09] MEDS ORDERED: ACETAMINOPHEN ER 650 MG TAB.SR.8HR PO SCH ×2 (21:00)
[2017-01-09] MEDS: AMIODARONE HCL 200 MG TABLET PO SCH (21:41)
[2017-01-09] MEDS: LIDOCAINE 5% 1 PATCH PATCH TOPICAL SCH (21:42)
[2017-01-09] MEDS: ACETAMINOPHEN ER 650 MG TAB.SR.8HR PO SCH (22:09)
[2017-01-10] MEDS: FUROSEMIDE 20 MG TABLET PO SCH (08:42)
[2017-01-10] MEDS: PROBIOTIC 1 CAP CAPSULE PO SCH (08:42)
[2017-01-10] MEDS: ACETAMINOPHEN ER 650 MG TAB.SR.8HR PO SCH ×3 (08:43→21:12)
[2017-01-10] MEDS: FAMOTIDINE 20 MG TABLET PO SCH ×2 (08:43→18:18)
[2017-01-10] MEDS: REMOVE PATCH 1 PATCH PATCH TRANSDERM SCH (08:44)
[2017-01-10] MEDS ORDERED: POTASSIUM CHLORIDE 20 MEQ/15 ML UDC PO SCH (09:00)
[2017-01-10] MEDS ORDERED: LIDOCAINE 5% 1 PATCH PATCH TOPICAL SCH (09:00)
[2017-01-10] MEDS: predniSONE 5 MG TABLET PO SCH (12:10)
[2017-01-10] MEDS: DOCUSATE SODIUM 100 MG CAPSULE PO SCH ×2 (12:10→20:34)
[2017-01-10] MEDS: CALCITONIN,SALMON 1 SPRAY BOTTLE NASAL SCH (12:11)
[2017-01-10] MEDS: WARFARIN SODIUM 2 MG TABLET PO SCH (16:33)
[2017-01-10] MEDS: FERROUS SULFATE 325 MG TABLET PO SCH (18:18)
--- NOTE | 2017-01-10 19:02 | HISTORY & PHYSICAL ---
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/17.~ He had just been transferred from [facility] to [facility] to enter into swing bed rehab.~ Patient initially had been admitted to [facility] on 01/05/17 because of intractable pain from a new L2 compression fracture.~ He was transferred to [facility]~ for consideration of kyphoplasty.~ After his further evaluation there, though, he was deemed to be too high risk to proceed with that.~ Developed some fluid overload versus atelectasis versus pneumonia on chest x-ray.~ Also, he had recent endocarditis and continues to have significant valvular disease.~ He was sent back to [facility] today without having undergone kyphoplasty.~ Over the past 4 days his lumbar pain has improved a little, and most recently has been adequately controlled with oxycodone 5 mg p.o. nightly supplemented by 1 or 2 doses of 2.5 mg oxycodone p.o. during the day.~ He has been getting [id number] Tylenol at 1000 mg 3 times daily, and Lidoderm patches at night.~ Finds that his pain shoots up to 10/10 with much movement, but along is as long as he is avoiding bending or twisting he has quite manageable pain.~ 2 weeks ago this patient was evaluated by his PCP, Dr. Bhakta, for some mid to low back pain.~ At that time he was noted to have a T10 compression fracture of uncertain duration.~ His pain acutely worsened on 01/05/17 when he bent down to pull up his pants.~ His MRI on 01/05 showed a subtle fracture of the endplate of L2 with slight height loss.~ He was new compared to a CT done on 12/16/16 Assessment: Acute L2 superior endplate fracture on 01/05/17.~ Intractable pain.~ Subacute T10 compression fracture, less tender. Plan: Patient needs further rehab to be able to safely go home.~ I will continue medications listed above and his l thoracolumbar brace provided to him at [facility].~ I would anticipate that he will be able to go home in a week or 2. Constipation due to pain medication He has had some mild constipation related to his oxycodone use.~ His last bowel movement was yesterday.~ I will continue him on senna 2 tabs per day and add MiraLAX 17 g daily as needed. Atelectasis of left lung He had some atelectasis while at [facility] possibly with some fluid overload.~ That is better now and he is oxygenating adequately on room air.~ We will encourage him to continue using an incentive spirometer. Atrial fibrillation (HC code) Previous history of A. fib.~ Currently seems to be in sinus rhythm.~ long term care administrator (current) use of anticoagulants He is anticoagulated for history of A. fib.~ His INR this morning was 1.9.~ He did miss some doses this week because of his anticipated kyphoplasty.~ He was on 1.25 mg of warfarin twice a week and 1 mg on the other days.~ I will start out with him getting 1 mg daily and track INRs. 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 Renal failure, chronic His creatinine yesterday was 1.3.~ We will recheck this on 01/12/17 GERD (gastroesophageal reflux disease) He has a history of GERD.~ It was flared some with his recent compression fractures and hospitalization, but is under good control now on famotidine twice daily. I will continue that Aortic stenosis Chronic.~ He will be seeing Dr. Garza on DecemberJanuary 20 and at the valve clinic at [facility] on January 27 Mitral stenosis Chronic. He underwent balloon valvuloplasty in 2013. PMR (polymyalgia rheumatica) (HC code) He states that he has been on prednisone for nearly 20 years for his PMR.~ He has been unable to get down below 5 mg daily.~ Currently he has no neck or upper back pain on a 5 mg per day dosing and I will continue that.~ Osteoporosis with current spinal compression fractures with routine healing Recent compression fractures (T10 and L2) likely related to osteoporosis.~ He is at risk for this given his long history of prednisone use for PMR. ~ Subjective: Patient ID: Reddy Mello is a 86 y.o. male who presents to [facility] for an annual preventive visit. HPI Refer to the A&P section above for an additional problem-oriented history, assessment, and plan. CURRENT MEDICATIONS: Current Outpatient Prescriptions Medication Sig acetaminophen (TYLENOL) 500 mg tablet Take 2 tablets by mouth every 8 hours for Pain. amiodarone (CORDARONE) 200 mg tablet Take 1 tablet by mouth daily for Ventricular Rate Control in Atrial Fibrillation. aspirin 81 mg Tab tablet Take 81 mg by mouth daily. calcitonin, salmon, 200 unit/actuation NASAL spray 1 spray by Nasal route daily. famotidine (PEPCID) 20 mg tablet Take 1 tablet by mouth daily for Dyspepsia Prevention. ferrous sulfate 325 mg (65 mg iron) tablet Take 325 mg by mouth daily. furosemide (LASIX) 40 mg tablet Take 1 tablet by mouth daily for Pulmonary Edema due to Chronic Heart Failure. gabapentin (NEURONTIN) 100 mg capsule Take 1 capsule by mouth 3 times daily for Neuropathic Pain. LACTOBACILLUS ACIDOPHILUS (PROBIOTIC PO) Take 1 capsule by mouth daily. lidocaine 5%, 700 mg/patch, (LIDODERM) 5 % Place 1 patch onto the skin every 24 hours for pain. Apply 12 hours on, 12 hours off. metoprolol tartrate (LOPRESSOR) 25 mg tablet Take 1 tablet by mouth 2 times daily. oxyCODONE (ROXICODONE) 5 mg immediate release tablet Take 0.5-1 tablets by mouth every 4 hours as needed (Moderate Pain) for Pain. potassium chloride (KLOR-CON) 8 mEq SR tablet Take 1 tablet by mouth daily. predniSONE (DELTASONE) 5 mg tablet Take 5 mg by mouth daily. senna (SENOKOT) 8.6 mg tablet Take 2 tablets by mouth nightly at bedtime for constipation. [START ON 01/12/2017] warfarin (COUMADIN) 1 mg tablet Take 1 tablet by mouth twice a week for atrial fibrillation. On Thursday and Thursday. (Patient taking differently: Take 1 mg by mouth four times a week for atrial fibrillation. ) warfarin (COUMADIN) 2.5 mg tablet for atrial fibrillation. Take 1.25 mg by mouth three times weekly on Thursday, Thursday, and . (Patient taking differently: Take 1.25 mg by mouth three times a week for atrial fibrillation. ) Discharge Home Oxygen, Hospital Discharge, 2 L/min by Nasal Cannula route continuous for acute respiratory failure. (Patient taking differently: 2 L/min by Nasal Cannula route with exercise and at night for acute respiratory failure. Also when napping) No current facility-administered medications for this visit. ALLERGIES: Ativan [lorazepam] and Penicillins I have reviewed, verified and personally updated the past medical, surgical, family and social~ history. Review of Systems Constitutional: Positive for activity change, appetite change and fatigue. Negative for chills, fever and unexpected weight change. ____ HENT: Negative.~ Respiratory: Negative for cough, chest tightness (But he has pain with deep breathing), shortness of breath and wheezing.~ ____ Cardiovascular: Negative for chest pain, palpitations and leg swelling. ____ Gastrointestinal: Positive for constipation. Negative for abdominal distention, abdominal pain, blood in stool, diarrhea, nausea and vomiting. Musculoskeletal: Positive for back pain. Negative for myalgias. ____ Skin: Negative for rash and wound (But he gets skin tears easily). ~~~~~Multiple minor ecchymoses on the forearms related to capillary fragility and chronic anticoagulation Neurological: Negative.~ ____ Hematological: Bruises/bleeds easily. ____ Psychiatric/Behavioral: Negative.~ ~ Objective: Temp 36.8, BP 112/61 pulse 59 (regular) respirations 16 SPO2 93% on room air Weight 64.4 kg Physical Exam __ Constitutional: He is oriented to person, place, and time. No distress. Eyes: Conjunctivae are normal. ____ Neck: Neck supple. ____ Cardiovascular: Normal rate, regular rhythm and normal heart sounds.~ ____ Pulmonary/Chest: Effort normal and breath sounds normal. ____ Abdominal: He exhibits no distension. There is no tenderness. Musculoskeletal: He exhibits no edema. ~~~~~Thoracic back: He exhibits decreased range of motion (He is in a back brace ), bony tenderness (Mild to moderate at L2 and mild at T10), pain and spasm ( Mild in the lumbar region). He exhibits no deformity. ~~~~~Back: Lymphadenopathy: ~~He has no cervical adenopathy. ____ Neurological: He is alert and oriented to person, place, and time. ____ Skin: No rash noted. Multiple minor ecchymoses on the forearms ____ Psychiatric: He has a normal mood and affect. DATA: Results for orders placed or performed during the hospital encounter of Basic metabolic panel Result Value Ref Range Sodium Serum/Plasma 145 134 - 145 mmol/L Potassium Serum/Plasma 3.7 3.5 - 5.1 mmol/L Chloride Serum/Plasma 109 98 - 109 mmol/L Carbon Dioxide 28 22 - 30 mmol/L Anion Gap 8 >=4 mmol/L Glucose Random Serum/Plasma 85 70 - 99 mg/dL Blood Urea Nitrogen 38 (H) 9 - 20 mg/dL Creatinine Serum/Plasma 1.70 (H) 0.66 - 1.25 mg/dL eGFR if Non- 38 See comment. mL/min/1.73 "square meters" eGFR if 47 See comment. mL/min/1.73 "square meters" BUN/Creatinine Ratio 22.4 Calcium Serum/Plasma 8.7 8.4 - 10.2 mg/dL CBC No Auto Diff Result Value Ref Range White Blood Cell Count 4.9 3.9 - 10.7 10*9/L Red Blood Cell Count 3.66 (L) 4.41 - 6.07 10*12/L Hemoglobin 11.5 (L) 13.4 - 18.1 g/dL Hematocrit 34.7 (L) 40.8 - 53.0 % Mean Corpuscular Volume 94.8 81.0 - 99.1 fL Mean Corpuscular Hemoglobin 31.4 26.1 - 33.5 pg Mean Corpuscular Hemoglobin Concentration 33.1 31.0 - 35.3 g/dL Platelet Count 151 136 - 440 10*9/L Mean Platelet Volume 10.2 8.6 - 12.3 fL Red Cell Distribution Width CV 15.7 (H) 10.9 - 15.1 % Congestive Heart Failure BNP Result Value Ref Range BNP Congestive Heart Failure 897 (H) 0 - 100 pg/mL PT/INR Result Value Ref Range Prothrombin Time 27.1 (H) 11.6 - 15.1 seconds INR 2.43 See Comment. Vitamin D 25-hydroxy (Preferred) Result Value Ref Range Vitamin D 25- Hydroxy 34 30 - 100 ng/mL PT/INR Result Value Ref Range Prothrombin Time 22.3 (H) 11.6 - 15.1 seconds INR 1.91 See Comment. Radiology study reports viewed and are pertinent for a lumbar spine MRI from that showed a moderate subacute T10 compression fracture and a subtle subacute fracture of the superior endplate of L2. ~ Charles Walters MD [facility]
[2017-01-10] MEDS: LIDOCAINE 5% 1 PATCH PATCH TOPICAL SCH (20:35)
[2017-01-10] MEDS: AMIODARONE HCL 200 MG TABLET PO SCH (20:35)
[2017-01-11] MEDS: POTASSIUM CHLORIDE 8 MEQ PO SCH (09:32)
[2017-01-11] MEDS: ACETAMINOPHEN ER 650 MG TAB.SR.8HR PO SCH ×3 (09:33→20:44)
[2017-01-11] MEDS: PROBIOTIC 1 CAP CAPSULE PO SCH (09:34)
[2017-01-11] MEDS: metoprolol SUCC ER 25 MG TABLET PO SCH (09:34)
[2017-01-11] MEDS: DOCUSATE SODIUM 100 MG CAPSULE PO SCH ×2 (09:34→20:46)
[2017-01-11] MEDS: FUROSEMIDE 20 MG TABLET PO SCH (09:34)
[2017-01-11] MEDS: FAMOTIDINE 20 MG TABLET PO SCH ×2 (09:34→17:20)
[2017-01-11] MEDS: REMOVE PATCH 1 PATCH PATCH TRANSDERM SCH (09:35)
[2017-01-11 09:39] LABS: URINE MUCUS NONE SEEN (Up to 25%); URINE RBC NONE SEEN (0-5/hpf); URINE WBC NONE SEEN (0-4/hpf)
[2017-01-11 09:44] LABS: URINE APPEARANCE CLEAR; URINE BILIRUBIN NEGATIVE (NEGATIVE); URINE COLOR YELLOW; URINE GLUCOSE NORMAL (NEGATIVE); URINE KETONE NEGATIVE (NEGATIVE); URINE LEUKOCYTE ESTERASE NEGATIVE (NEGATIVE); URINE NITRITE NEGATIVE (NEGATIVE); URINE PROTEIN NEGATIVE (NEG - TRACE); URINE SPECIFIC GRAVITY 1.015 (0.001-1.035); URINE UROBILINOGEN 0.2mg/dL (Normal) (NEG-1mg/dL)
[2017-01-11 09:45] LABS: URINE BACTERIA NONE SEEN (<10/hpf); URINE BLOOD NEGATIVE (NEGATIVE); URINE SQUAMOUS EPITHELIAL CELL 0-5/hpf (<= 15/hpf)
[2017-01-11] MEDS: predniSONE 5 MG TABLET PO SCH (11:46)
[2017-01-11] MEDS: CALCITONIN,SALMON 1 SPRAY BOTTLE NASAL SCH (11:48)
[2017-01-11] MEDS: WARFARIN SODIUM 2 MG TABLET PO SCH (16:01)
[2017-01-11] MEDS: FERROUS SULFATE 325 MG TABLET PO SCH (17:20)
[2017-01-11] MEDS: LIDOCAINE 5% 1 PATCH PATCH TOPICAL SCH (20:44)
[2017-01-11] MEDS: AMIODARONE HCL 200 MG TABLET PO SCH (20:45)
[2017-01-12 07:10] LABS: BLOOD UREA NITROGEN 35 mg/dL (9-20); CALCIUM 9.3 mg/dL (8.4-10.2); CHLORIDE 108 mmol/L (98-107); GLUCOSE 91 mg/dL (70-100); POTASSIUM 4.1 mmol/L (3.5-5.1); SODIUM 140 mmol/L (137-145)
[2017-01-12 07:45] LABS: INR 1.5
[2017-01-12] MEDS ORDERED: WARFARIN SODIUM 2 MG TABLET PO SCH ×3 (09:03→16:00)
--- NOTE | 2017-01-12 09:12 | PROGRESS NOTE: IM APSO ---
Assessment and Plan - Date of Encounter Date of Encounter: 01/12/17 (1) Compression fracture Status: Acute Assessment and plan: Prior compression fracture at T10 and now with a new compression fracture at L2. Admitted for pain control and rehabilitation. Not a candidate for kyphoplasty considering age and comorbidities. Working with physical therapy and occupational therapy. Using a thoracic brace with tolerance and some success. Pain reasonably well controlled with nonmedication modalities, Tylenol , oxycodone, Lidoderm, calcitonin. Current Visit: Yes (2) Coronary artery disease Status: Chronic Assessment and plan: Stable. Remains on appropriate cardiac regimen including beta brett, aspirin, warfarin. Statin therapy currently being held in the setting of PMR. Will plan to restart statin therapy once more medically stable. Current Visit: No (3) CHF (congestive heart failure), NYHA class IV Status: Chronic Assessment and plan: Difficult situation but not significantly changed from baseline. Remains on beta brett and diuretic therapy. Minimal O2 requirement. Current Visit: No (4) Atrial fibrillation Status: Chronic Assessment and plan: Stable on amiodarone, metoprolol, warfarin. Current Visit: No (5) Aortic stenosis Status: Chronic Current Visit: No (6) Mitral stenosis Status: Chronic Current Visit: No (7) CKD (chronic kidney disease), stage III Status: Chronic Assessment and plan: Remains at his new baseline. Current Visit: Yes (8) History of SBE (subacute bacterial endocarditis) Status: Resolved Assessment and plan: No evidence of recurrence. Now off of antibiotic therapy. Follow clinically. Current Visit: No (9) DVT prophylaxis Status: Acute Assessment and plan: Fully anticoagulated with Coumadin. Current Visit: Yes - Time Spent With Patient Total time spent with greater than 50% in coordination of care (as documented) at patient's floor/unit and/or counseling patient: 25 - 35 minutes Estimated anticipated discharge: 1-2 weeks IM: PN Subjective General: no anxiety, no depression, no fever, no chills Cardiovascular: no chest pain, no palpitations Respiratory: no cough, no wheeze, no SOB Gastrointestinal: bloating (Baseline), no abdominal pain, no nausea, no vomiting Musculoskeletal: pain (tolerable on current medication regimen, worse with standing) Integumentary: dryness Neurological: limb weakness (diffuse, bilateral lower extremities more than upper extremities), no numbness, no tingling IM: PN Objective Exam - I&O/Vital Signs I&O: Intake & Output 01/11/17 01/12/17 01/12/17 21:59 05:59 13:59 Intake Total 700 300 Output Total 600 925 Balance 100 -625 Intake: Oral 700 300 Output: Urine 600 925 Other: Urine Appearance Clear Urine Color Straw Voiding Method Toilet Toilet # Voids 3 2 Vital Signs: Last Vital Signs Temp 36.7 C 01/12/17 07:00 Pulse 66 01/12/17 07:00 Resp 16 01/12/17 07:00 BP 102/60 01/12/17 07:00 Pulse Ox 95 01/12/17 07:00 Oxygen Flow Rate 0.5 Oxygen Delivery Method Nasal Cannula - Constitutional General appearance: Present: thin. Absent: acute distress - Head Head exam: Present: atraumatic - Eye Eye exam: Absent: scleral icterus - ENT ENT exam: Present: mucous membranes dry - Respiratory Respiratory exam: Present: decreased breath sounds, rales (right greater than left base). Absent: respiratory distress, rhonchi, wheezes - Cardiovascular Cardiovascular exam: Present: RRR, systolic murmur (crescendo/decrescendo) - GI/Abdominal GI/Abdominal exam: Present: distended, normal bowel sounds, soft. Absent: firm , rebound, rigid, tenderness - Extremities Exam Extremities exam: Present: edema (trace). Absent: calf tenderness - Back Exam Back exam: Present: other (thoracic brace in place) - Neurological Exam Neurological exam: Present: oriented X3 - Psychiatric Psychiatric exam: Absent: anxious, depressed - Skin Skin exam: Present: dry. Absent: rash - Allied Health Notes Allied health notes reviewed: nursing - Lab Labs: Laboratory Last Values PT 24.3 sec (13.0-16.6) H 01/12/17 06:30 Capillary INR 1.6 (0.8-1.2) H D 01/11/17 06:05 INR 1.5 D 01/12/17 06:30 Sodium 140 mmol/L (137-145) 01/12/17 06:30 Potassium 4.1 mmol/L (3.5-5.1) 01/12/17 06:30 Chloride 108 mmol/L (98-107) H 01/12/17 06:30 Carbon Dioxide 27 mmol/L (22-30) 01/12/17 06:30 BUN 35 mg/dL (9-20) H 01/12/17 06:30 Creatinine 1.7 mg/dL (0.7-1.3) H 01/12/17 06:30 GFR Calculation Not Reportable 01/12/17 06:30 Glucose 91 mg/dL (70-100) 01/12/17 06:30 Calcium 9.3 mg/dL (8.4-10.2) 01/12/17 06:30 Urine Color Yellow 01/11/17 09:21 Urine Appearance Clear 01/11/17 09:21 Urine pH 5.0 (5-7) 01/11/17 09:21 Ur Specific [place] 1.015 (0.001-1.035) 01/11/17 09:21 Urine Protein Negative (NEG - TRACE) 01/11/17 09:21 Urine Ketones Negative (NEGATIVE) 01/11/17 09:21 Urine Blood Negative (NEGATIVE) 01/11/17 09:21 Urine Nitrate Negative (NEGATIVE) 01/11/17 09:21 Urine Bilirubin Negative (NEGATIVE) 01/11/17 09:21 Urine Urobilinogen 0.2mg/dl (normal) (NEG-1mg/dL) 01/11/17 09:21 Ur Leukocyte Esterase Negative (NEGATIVE) 01/11/17 09:21 Urine RBC None seen (0-5/hpf) 01/11/17 09:21 Urine WBC None seen (0-4/hpf) 01/11/17 09:21 Ur Squamous Epith Cells 0-5/hpf (<= 15/hpf) 01/11/17 09:21 Urine Bacteria None seen (<10/hpf) 01/11/17 09:21 Urine Mucus None seen (Up to 25%) 01/11/17 09:21 Urine Glucose Normal (NEGATIVE) 01/11/17 09:21 Quality Questions - VTE Prophylaxis Assessment VTE Present on Admission?: No Patient at risk for venous thromboembolism?: Yes VTE Risk Level: High Risk Pharmaceutical VTE prophylaxis contraindication reason: N/A- VTE prophylaxsis ordered Mechanical VTE prophylaxis contraindication reason: not indicated (2) Coronary artery disease Qualifiers: Coronary Disease-Associated Artery/Lesion type: [place] artery [place] vs. transplanted heart: [place] heart Associated angina: without angina Qualified Code(s): I25.10 - Atherosclerotic heart disease of [place] coronary artery without angina pectoris (3) CHF (congestive heart failure), NYHA class IV Qualifiers: Congestive heart failure type: systolic Congestive heart failure chronicity: chronic Qualified Code(s): I50.22 - Chronic systolic (congestive) heart failure (4) Atrial fibrillation Qualifiers: Atrial fibrillation type: paroxysmal (5) Aortic stenosis Qualifiers: Cardiac valve disease etiology: etiology unspecified (6) Mitral stenosis Qualifiers: Cardiac valve disease etiology: etiology unspecified 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
[2017-01-12] MEDS: FAMOTIDINE 20 MG TABLET PO SCH ×2 (09:39→17:22)
[2017-01-12] MEDS: ACETAMINOPHEN ER 650 MG TAB.SR.8HR PO SCH ×3 (09:39→20:49)
[2017-01-12] MEDS: metoprolol SUCC ER 25 MG TABLET PO SCH (09:40)
[2017-01-12] MEDS: DOCUSATE SODIUM 100 MG CAPSULE PO SCH ×2 (09:40→20:49)
[2017-01-12] MEDS: FUROSEMIDE 20 MG TABLET PO SCH (09:40)
[2017-01-12] MEDS: POTASSIUM CHLORIDE 8 MEQ PO SCH (09:40)
[2017-01-12] MEDS: PROBIOTIC 1 CAP CAPSULE PO SCH (09:40)
[2017-01-12] MEDS: REMOVE PATCH 1 PATCH PATCH TRANSDERM SCH (09:45)
[2017-01-12] MEDS: predniSONE 5 MG TABLET PO SCH (11:38)
[2017-01-12] MEDS: CALCITONIN,SALMON 1 SPRAY BOTTLE NASAL SCH (11:39)
[2017-01-12] MEDS: WARFARIN SODIUM 2 MG TABLET PO SCH (16:39)
[2017-01-12] MEDS: FERROUS SULFATE 325 MG TABLET PO SCH (17:22)
[2017-01-12] MEDS: AMIODARONE HCL 200 MG TABLET PO SCH (20:49)
[2017-01-12] MEDS: LIDOCAINE 5% 1 PATCH PATCH TOPICAL SCH (22:08)
[2017-01-13 08:04] LABS: BASOPHILS 0.3 % (0.0-2.0); EOSINOPHILS 2.5 % (0.0-6.0); EOSINOPHILS# 0.1 X 10^3uL (0.0-0.4); HEMATOCRIT 35.3 % (42.0-54.0); HEMOGLOBIN 11.9 g/dL (14.0-18.0); LYMPHOCYTES 16.7 % (20.0-40.0); LYMPHOCYTES# 0.9 X 10^3uL (0.8-3.8); MEAN CELL VOLUME 90.3 fL (80.0-100.0); MEAN CORPUS. HGB CONCENTRATION 33.7 g/dL (32.0-36.0); MEAN CORPUSCULAR HEMOGLOBIN 30.4 pg (29.0-35.0); MEAN PLATELET VOLUME 8.8 fL (7.4-10.4); MONOCYTES 7.1 % (2.0-10.0); MONOCYTES# 0.4 X 10^3uL (0.2-1.0); NEUTROPHILS 73.4 % (54.0-75.0); PLATELET COUNT 201 X 10^3uL (130-440); RED BLOOD COUNT 3.91 X 10^6uL (4.20-6.10); RED CELL DISTRIBUTION WIDTH 15.6 % (11.5-14.5); WHITE BLOOD COUNT 5.4 X 10^3uL (3.9-10.7)
[2017-01-13 08:32] LABS: INR 1.7
[2017-01-13 08:45] LABS: BLOOD UREA NITROGEN 38 mg/dL (9-20); CALCIUM 9.6 mg/dL (8.4-10.2); CHLORIDE 104 mmol/L (98-107); GLUCOSE 78 mg/dL (70-100); POTASSIUM 3.9 mmol/L (3.5-5.1); SODIUM 138 mmol/L (137-145)
[2017-01-13] MEDS: metoprolol SUCC ER 25 MG TABLET PO SCH (10:04)
[2017-01-13] MEDS: ACETAMINOPHEN ER 650 MG TAB.SR.8HR PO SCH ×3 (10:05→20:20)
[2017-01-13] MEDS: FAMOTIDINE 20 MG TABLET PO SCH ×2 (10:07→20:19)
[2017-01-13] MEDS: FUROSEMIDE 20 MG TABLET PO SCH (10:08)
[2017-01-13] MEDS: POTASSIUM CHLORIDE 8 MEQ PO SCH (10:09)
[2017-01-13] MEDS: DOCUSATE SODIUM 100 MG CAPSULE PO SCH ×2 (10:09→20:20)
[2017-01-13] MEDS: REMOVE PATCH 1 PATCH PATCH TRANSDERM SCH (10:12)
[2017-01-13] MEDS: PROBIOTIC 1 CAP CAPSULE PO SCH (10:15)
[2017-01-13] MEDS: predniSONE 5 MG TABLET PO SCH (13:47)
[2017-01-13] MEDS: CALCITONIN,SALMON 1 SPRAY BOTTLE NASAL SCH (13:48)
--- NOTE | 2017-01-13 13:49 | PROGRESS NOTE: IM APSO ---
Assessment and Plan - Date of Encounter Date of Encounter: 01/13/17 (1) Compression fracture Status: Acute Assessment and plan: Prior compression fracture at T10 and now with a new compression fracture at L2. Admitted to swing bed for ongoing pain control and rehabilitation. Not a candidate for kyphoplasty considering age and comorbidities. Exacerbation overnight after bending near fall episode. He was counseled regarding intentional movements and avoiding bending, lifting, and twisting. Working with physical therapy and occupational therapy. Using a thoracic brace with tolerance and some success. Pain reasonably well controlled with nonmedication modalities including Tylenol, oxycodone, Lidoderm, calcitonin. Care conference tomorrow. Current Visit: Yes (2) Coronary artery disease Status: Chronic Assessment and plan: Stable. Remains on appropriate cardiac regimen including beta brett, aspirin, warfarin. Statin therapy currently being held in the setting of PMR. Will plan to restart statin therapy once more medically stable. Current Visit: No (3) CHF (congestive heart failure), NYHA class IV Status: Chronic Assessment and plan: Difficult situation but not significantly changed from baseline. Remains on beta brett and diuretic therapy. Low O2 requirement. Current Visit: No (4) Atrial fibrillation Status: Chronic Assessment and plan: Stable on amiodarone, metoprolol, warfarin. INR is gradually drifting up with recent dose change. Reassess in the morning. Current Visit: No (5) Aortic stenosis Status: Chronic Current Visit: No (6) Mitral stenosis Status: Chronic Current Visit: No (7) CKD (chronic kidney disease), stage III Status: Chronic Assessment and plan: Remains at his new baseline. Current Visit: Yes (8) History of SBE (subacute bacterial endocarditis) Status: Resolved Assessment and plan: No evidence of recurrence. Now off of antibiotic therapy. Follow clinically. Current Visit: No (9) DVT prophylaxis Status: Acute Assessment and plan: Fully anticoagulated with Coumadin. Current Visit: Yes - Time Spent With Patient Total time spent with greater than 50% in coordination of care (as documented) at patient's floor/unit and/or counseling patient: 16-24 minutes Estimated anticipated discharge: 1-2 weeks IM: PN Subjective Interval history: Unfortunately, late yesterday, bent over to try to clean the toilet after going to the bathroom.He started to fall to the left side and caught himself. However , sustained a skin tear to left arm and also exacerbated his back pain. Pain is better today, but he has used a little more oxycodone. Has limited his activities today based upon this. General: no anxiety, no fever, no chills Cardiovascular: no chest pain, no palpitations Respiratory: no cough, no wheeze, no SOB Gastrointestinal: bloating (Baseline), no abdominal pain, no nausea, no vomiting , no diarrhea, no constipation Genitourinary: no dysuria Musculoskeletal: pain (exacerbated after his near fall yesterday) Integumentary: dryness Neurological: limb weakness (diffuse, bilateral lower extremities more than upper extremities), no numbness, no tingling IM: PN Objective Exam - I&O/Vital Signs I&O: Intake & Output 01/12/17 01/13/17 01/13/17 21:59 05:59 13:59 Intake Total 727 100 Output Total 800 200 Balance -73 -100 Intake: Oral 727 100 Output: Urine 800 200 Other: Urine Appearance Clear Clear Urine Color Straw Yellow Voiding Method Toilet Urinal Vital Signs: Last Vital Signs Temp 36.6 C 01/13/17 07:00 Pulse 68 01/13/17 07:00 Resp 20 01/13/17 07:00 BP 111/50 01/13/17 07:00 Pulse Ox 91 01/13/17 11:08 Oxygen Flow Rate 2 Oxygen Delivery Method Nasal Cannula - Constitutional General appearance: Present: thin. Absent: acute distress - Head Head exam: Present: atraumatic - Eye Eye exam: Absent: scleral icterus - ENT ENT exam: Present: mucous membranes dry - Respiratory Respiratory exam: Present: decreased breath sounds, rales (right greater than left base). Absent: respiratory distress, rhonchi, wheezes - Cardiovascular Cardiovascular exam: Present: RRR, systolic murmur (crescendo/decrescendo) - GI/Abdominal GI/Abdominal exam: Present: distended, normal bowel sounds, soft. Absent: firm , rebound, rigid, tenderness - Extremities Exam Extremities exam: Present: edema (trace). Absent: calf tenderness - Back Exam Back exam: Present: other (thoracic brace in place) - Neurological Exam Neurological exam: Present: oriented X3 - Psychiatric Psychiatric exam: Absent: anxious, depressed - Skin Skin exam: Present: dry. Absent: rash - Allied Health Notes Allied health notes reviewed: nursing, PT - Lab Labs: Laboratory Last Values WBC 5.4 X 10^3uL (3.9-10.7) 01/13/17 07:50 RBC 3.91 X 10^6uL (4.20-6.10) L 01/13/17 07:50 Hgb 11.9 g/dL (14.0-18.0) L 01/13/17 07:50 Hct 35.3 % (42.0-54.0) L 01/13/17 07:50 MCV 90.3 fL (80.0-100.0) 01/13/17 07:50 MCH 30.4 pg (29.0-35.0) 01/13/17 07:50 MCHC 33.7 g/dL (32.0-36.0) 01/13/17 07:50 RDW 15.6 % (11.5-14.5) H 01/13/17 07:50 Plt Count 201 X 10^3uL (130-440) 01/13/17 07:50 MPV 8.8 fL (7.4-10.4) 01/13/17 07:50 Neutrophils % 73.4 % (54.0-75.0) 01/13/17 07:50 Lymphocytes % 16.7 % (20.0-40.0) L 01/13/17 07:50 Eosinophils % 2.5 % (0.0-6.0) 01/13/17 07:50 Basophils % 0.3 % (0.0-2.0) 01/13/17 07:50 Neutrophils # 4.0 X 10^3uL (2.6-6.7) 01/13/17 07:50 Lymphocytes # 0.9 X 10^3uL (0.8-3.8) 01/13/17 07:50 Monocytes 7.1 % (2.0-10.0) 01/13/17 07:50 Monocytes # 0.4 X 10^3uL (0.2-1.0) 01/13/17 07:50 Eosinophils # 0.1 X 10^3uL (0.0-0.4) 01/13/17 07:50 Basophils # 0.0 X 10^3uL (0.0-0.1) 01/13/17 07:50 PT 26.6 sec (13.0-16.6) H 01/13/17 07:50 Capillary INR 1.6 (0.8-1.2) H D 01/11/17 06:05 INR 1.7 01/13/17 07:50 Sodium 138 mmol/L (137-145) 01/13/17 07:50 Potassium 3.9 mmol/L (3.5-5.1) 01/13/17 07:50 Chloride 104 mmol/L (98-107) 01/13/17 07:50 Carbon Dioxide 27 mmol/L (22-30) 01/13/17 07:50 BUN 38 mg/dL (9-20) H 01/13/17 07:50 Creatinine 1.6 mg/dL (0.7-1.3) H 01/13/17 07:50 GFR Calculation Not Reportable 01/13/17 07:50 Glucose 78 mg/dL (70-100) 01/13/17 07:50 Calcium 9.6 mg/dL (8.4-10.2) 01/13/17 07:50 Magnesium 2.0 mg/dL (1.6-2.3) 01/13/17 07:50 Urine Color Yellow 01/11/17 09:21 Urine Appearance Clear 01/11/17 09:21 Urine pH 5.0 (5-7) 01/11/17 09:21 Ur Specific [place] 1.015 (0.001-1.035) 01/11/17 09:21 Urine Protein Negative (NEG - TRACE) 01/11/17 09:21 Urine Ketones Negative (NEGATIVE) 01/11/17 09:21 Urine Blood Negative (NEGATIVE) 01/11/17 09:21 Urine Nitrate Negative (NEGATIVE) 01/11/17 09:21 Urine Bilirubin Negative (NEGATIVE) 01/11/17 09:21 Urine Urobilinogen 0.2mg/dl (normal) (NEG-1mg/dL) 01/11/17 09:21 Ur Leukocyte Esterase Negative (NEGATIVE) 01/11/17 09:21 Urine RBC None seen (0-5/hpf) 01/11/17 09:21 Urine WBC None seen (0-4/hpf) 01/11/17 09:21 Ur Squamous Epith Cells 0-5/hpf (<= 15/hpf) 01/11/17 09:21 Urine Bacteria None seen (<10/hpf) 01/11/17 09:21 Urine Mucus None seen (Up to 25%) 01/11/17 09:21 Urine Glucose Normal (NEGATIVE) 01/11/17 09:21 (2) Coronary artery disease Qualifiers: Coronary Disease-Associated Artery/Lesion type: [place] artery [place] vs. transplanted heart: [place] heart Associated angina: without angina Qualified Code(s): I25.10 - Atherosclerotic heart disease of [place] coronary artery without angina pectoris (3) CHF (congestive heart failure), NYHA class IV Qualifiers: Congestive heart failure type: systolic Congestive heart failure chronicity: chronic Qualified Code(s): I50.22 - Chronic systolic (congestive) heart failure (4) Atrial fibrillation Qualifiers: Atrial fibrillation type: paroxysmal (5) Aortic stenosis Qualifiers: Cardiac valve disease etiology: etiology unspecified (6) Mitral stenosis Qualifiers: Cardiac valve disease etiology: etiology unspecified 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
[2017-01-13] MEDS: WARFARIN SODIUM 2 MG TABLET PO SCH (17:24)
[2017-01-13] MEDS: FERROUS SULFATE 325 MG TABLET PO SCH (17:26)
[2017-01-13] MEDS: LIDOCAINE 5% 1 PATCH PATCH TOPICAL SCH (20:20)
[2017-01-13] MEDS: AMIODARONE HCL 200 MG TABLET PO SCH (20:20)
[2017-01-14] MEDS: ACETAMINOPHEN ER 650 MG TAB.SR.8HR PO SCH ×3 (08:25→20:20)
[2017-01-14] MEDS: FAMOTIDINE 20 MG TABLET PO SCH ×2 (08:27→17:57)
[2017-01-14] MEDS: DOCUSATE SODIUM 100 MG CAPSULE PO SCH ×2 (08:28→20:19)
[2017-01-14] MEDS: FUROSEMIDE 20 MG TABLET PO SCH (08:30)
[2017-01-14] MEDS: PROBIOTIC 1 CAP CAPSULE PO SCH (08:30)
[2017-01-14] MEDS: POTASSIUM CHLORIDE 8 MEQ PO SCH (08:33)
[2017-01-14] MEDS: metoprolol SUCC ER 25 MG TABLET PO SCH (08:34)
--- NOTE | 2017-01-14 10:07 | PROGRESS NOTE: IM APSO ---
Assessment and Plan - Date of Encounter Date of Encounter: 01/14/17 (1) Compression fracture Status: Acute Assessment and plan: Prior compression fracture at T10 and now with a new compression fracture at L2. Admitted to swing bed for ongoing pain control and rehabilitation. Not a candidate for kyphoplasty considering age and comorbidities. Working with physical therapy and occupational therapy. Using a thoracic brace with tolerance and some success. Pain reasonably well controlled with nonmedication and medication modalities including Tylenol, oxycodone, Lidoderm, calcitonin. Care conference today. Current Visit: Yes (2) Coronary artery disease Status: Chronic Assessment and plan: Stable. Remains on appropriate cardiac regimen including beta brett, aspirin, warfarin. Statin therapy currently being held in the setting of PMR. Will plan to restart statin therapy once more medically stable. Current Visit: No (3) CHF (congestive heart failure), NYHA class IV Status: Chronic Assessment and plan: Difficult situation but not significantly changed from baseline. Remains on beta brett and diuretic therapy. Low O2 requirement. Current Visit: Yes (4) Atrial fibrillation Status: Chronic Assessment and plan: Stable on amiodarone, metoprolol, warfarin. INR is therapeutic as of this morning. Reassess INR on Thursday. Current Visit: Yes (5) Aortic stenosis Status: Chronic Current Visit: No (6) Mitral stenosis Status: Chronic Current Visit: No (7) CKD (chronic kidney disease), stage III Status: Chronic Assessment and plan: Stable. Current Visit: Yes (8) History of SBE (subacute bacterial endocarditis) Status: Resolved Assessment and plan: No evidence of recurrence. Now off of antibiotic therapy. Follow clinically. Current Visit: No (9) DVT prophylaxis Status: Acute Assessment and plan: Fully anticoagulated with Coumadin. Current Visit: Yes - Time Spent With Patient Total time spent with greater than 50% in coordination of care (as documented) at patient's floor/unit and/or counseling patient: 16-24 minutes Estimated anticipated discharge: Possibly next week. IM: PN Subjective General: no anxiety, no fever, no chills Cardiovascular: no chest pain, no palpitations Respiratory: no cough, no wheeze, no SOB Gastrointestinal: no abdominal pain, no nausea, no vomiting, no diarrhea, no constipation Genitourinary: no dysuria Musculoskeletal: pain (exacerbated after his near fall yesterday) Integumentary: dryness, wound (LUE from near fall on Thursday evening) Neurological: limb weakness (diffuse, bilateral lower extremities more than upper extremities), no numbness, no tingling IM: PN Objective Exam - I&O/Vital Signs I&O: Intake & Output 01/13/17 01/14/17 01/14/17 21:59 05:59 13:59 Intake Total 810 125 Output Total 575 425 Balance 235 -300 Intake: Oral 810 125 Output: Urine 575 425 Other: Urine Appearance Clear Clear Urine Color Straw Yellow Voiding Method Toilet Urinal Vital Signs: Last Vital Signs Temp 36.7 C 01/14/17 06:52 Pulse 64 01/14/17 06:52 Resp 16 01/14/17 06:52 BP 108/65 01/14/17 06:52 Pulse Ox 97 01/14/17 06:52 Oxygen Flow Rate 2 Oxygen Delivery Method Nasal Cannula - Constitutional General appearance: Present: thin. Absent: acute distress - Head Head exam: Present: atraumatic - Eye Eye exam: Absent: scleral icterus - ENT ENT exam: Present: mucous membranes dry - Respiratory Respiratory exam: Present: decreased breath sounds, rales (right greater than left base). Absent: respiratory distress, rhonchi, wheezes - Cardiovascular Cardiovascular exam: Present: RRR, systolic murmur (crescendo/decrescendo) - GI/Abdominal GI/Abdominal exam: Present: distended, normal bowel sounds, soft. Absent: firm , rebound, rigid, tenderness - Extremities Exam Extremities exam: Present: edema (trace). Absent: calf tenderness - Back Exam Back exam: Present: other (thoracic brace in place) - Neurological Exam Neurological exam: Present: oriented X3 - Psychiatric Psychiatric exam: Absent: anxious, depressed - Skin Skin exam: Present: dry, other (dressing in place LUE). Absent: rash - Allied Health Notes Allied health notes reviewed: nursing, PT - Lab Labs: Laboratory Last Values WBC 5.4 X 10^3uL (3.9-10.7) 01/13/17 07:50 RBC 3.91 X 10^6uL (4.20-6.10) L 01/13/17 07:50 Hgb 11.9 g/dL (14.0-18.0) L 01/13/17 07:50 Hct 35.3 % (42.0-54.0) L 01/13/17 07:50 MCV 90.3 fL (80.0-100.0) 01/13/17 07:50 MCH 30.4 pg (29.0-35.0) 01/13/17 07:50 MCHC 33.7 g/dL (32.0-36.0) 01/13/17 07:50 RDW 15.6 % (11.5-14.5) H 01/13/17 07:50 Plt Count 201 X 10^3uL (130-440) 01/13/17 07:50 MPV 8.8 fL (7.4-10.4) 01/13/17 07:50 Neutrophils % 73.4 % (54.0-75.0) 01/13/17 07:50 Lymphocytes % 16.7 % (20.0-40.0) L 01/13/17 07:50 Eosinophils % 2.5 % (0.0-6.0) 01/13/17 07:50 Basophils % 0.3 % (0.0-2.0) 01/13/17 07:50 Neutrophils # 4.0 X 10^3uL (2.6-6.7) 01/13/17 07:50 Lymphocytes # 0.9 X 10^3uL (0.8-3.8) 01/13/17 07:50 Monocytes 7.1 % (2.0-10.0) 01/13/17 07:50 Monocytes # 0.4 X 10^3uL (0.2-1.0) 01/13/17 07:50 Eosinophils # 0.1 X 10^3uL (0.0-0.4) 01/13/17 07:50 Basophils # 0.0 X 10^3uL (0.0-0.1) 01/13/17 07:50 PT 26.6 sec (13.0-16.6) H 01/13/17 07:50 Capillary INR 2.2 (0.8-1.2) H 01/14/17 06:35 INR 1.7 01/13/17 07:50 Sodium 138 mmol/L (137-145) 01/13/17 07:50 Potassium 3.9 mmol/L (3.5-5.1) 01/13/17 07:50 Chloride 104 mmol/L (98-107) 01/13/17 07:50 Carbon Dioxide 27 mmol/L (22-30) 01/13/17 07:50 BUN 38 mg/dL (9-20) H 01/13/17 07:50 Creatinine 1.6 mg/dL (0.7-1.3) H 01/13/17 07:50 GFR Calculation Not Reportable 01/13/17 07:50 Glucose 78 mg/dL (70-100) 01/13/17 07:50 Calcium 9.6 mg/dL (8.4-10.2) 01/13/17 07:50 Magnesium 2.0 mg/dL (1.6-2.3) 01/13/17 07:50 Urine Color Yellow 01/11/17 09:21 Urine Appearance Clear 01/11/17 09:21 Urine pH 5.0 (5-7) 01/11/17 09:21 Ur Specific [place] 1.015 (0.001-1.035) 01/11/17 09:21 Urine Protein Negative (NEG - TRACE) 01/11/17 09:21 Urine Ketones Negative (NEGATIVE) 01/11/17 09:21 Urine Blood Negative (NEGATIVE) 01/11/17 09:21 Urine Nitrate Negative (NEGATIVE) 01/11/17 09:21 Urine Bilirubin Negative (NEGATIVE) 01/11/17 09:21 Urine Urobilinogen 0.2mg/dl (normal) (NEG-1mg/dL) 01/11/17 09:21 Ur Leukocyte Esterase Negative (NEGATIVE) 01/11/17 09:21 Urine RBC None seen (0-5/hpf) 01/11/17 09:21 Urine WBC None seen (0-4/hpf) 01/11/17 09:21 Ur Squamous Epith Cells 0-5/hpf (<= 15/hpf) 01/11/17 09:21 Urine Bacteria None seen (<10/hpf) 01/11/17 09:21 Urine Mucus None seen (Up to 25%) 01/11/17 09:21 Urine Glucose Normal (NEGATIVE) 01/11/17 09:21 (2) Coronary artery disease Qualifiers: Coronary Disease-Associated Artery/Lesion type: [place] artery [place] vs. transplanted heart: [place] heart Associated angina: without angina Qualified Code(s): I25.10 - Atherosclerotic heart disease of [place] coronary artery without angina pectoris (3) CHF (congestive heart failure), NYHA class IV Qualifiers: Congestive heart failure type: systolic Congestive heart failure chronicity: chronic Qualified Code(s): I50.22 - Chronic systolic (congestive) heart failure (4) Atrial fibrillation Qualifiers: Atrial fibrillation type: paroxysmal (5) Aortic stenosis Qualifiers: Cardiac valve disease etiology: etiology unspecified (6) Mitral stenosis Qualifiers: Cardiac valve disease etiology: etiology unspecified 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
[2017-01-14] MEDS: REMOVE PATCH 1 PATCH PATCH TRANSDERM SCH (10:25)
[2017-01-14] MEDS: CALCITONIN,SALMON 1 SPRAY BOTTLE NASAL SCH (12:26)
[2017-01-14] MEDS: predniSONE 5 MG TABLET PO SCH (12:27)
[2017-01-14] MEDS: WARFARIN SODIUM 2 MG TABLET PO SCH (17:11)
[2017-01-14] MEDS: FERROUS SULFATE 325 MG TABLET PO SCH (17:12)
[2017-01-14] MEDS ORDERED: BISACODYL 10 MG SUPP.RECT RECTAL PRN (18:37)
[2017-01-14] MEDS: LIDOCAINE 5% 1 PATCH PATCH TOPICAL SCH (20:20)
[2017-01-14] MEDS: AMIODARONE HCL 200 MG TABLET PO SCH (20:20)
[2017-01-15] MEDS: ACETAMINOPHEN ER 650 MG TAB.SR.8HR PO SCH ×3 (08:03→20:29)
[2017-01-15] MEDS: DOCUSATE SODIUM 100 MG CAPSULE PO SCH ×2 (08:04→20:29)
[2017-01-15] MEDS: PROBIOTIC 1 CAP CAPSULE PO SCH (08:04)
[2017-01-15] MEDS: FAMOTIDINE 20 MG TABLET PO SCH ×2 (08:04→17:24)
[2017-01-15] MEDS: metoprolol SUCC ER 25 MG TABLET PO SCH (08:04)
[2017-01-15] MEDS: FUROSEMIDE 20 MG TABLET PO SCH (08:04)
[2017-01-15] MEDS: POTASSIUM CHLORIDE 8 MEQ PO SCH (08:07)
[2017-01-15] MEDS: REMOVE PATCH 1 PATCH PATCH TRANSDERM SCH (08:07)
[2017-01-15] MEDS ORDERED: LIDOCAINE HCL/PF 4% 5 ML AMP TOPICAL ONE (11:10)
[2017-01-15] MEDS: predniSONE 5 MG TABLET PO SCH (11:52)
[2017-01-15] MEDS: CALCITONIN,SALMON 1 SPRAY BOTTLE NASAL SCH (11:52)
[2017-01-15] MEDS: WARFARIN SODIUM 2 MG TABLET PO SCH (16:19)
[2017-01-15] MEDS: FERROUS SULFATE 325 MG TABLET PO SCH (17:24)
[2017-01-15] MEDS: AMIODARONE HCL 200 MG TABLET PO SCH (20:29)
[2017-01-15] MEDS: LIDOCAINE 5% 1 PATCH PATCH TOPICAL SCH (20:29)
[2017-01-16 06:39] LABS: BLOOD UREA NITROGEN 30 mg/dL (9-20); CALCIUM 9.4 mg/dL (8.4-10.2); CHLORIDE 106 mmol/L (98-107); GLUCOSE 83 mg/dL (70-100); SODIUM 139 mmol/L (137-145)
[2017-01-16 06:44] LABS: INR W/O CAPI DRAW 2.8 (0.8-1.2)
[2017-01-16 06:48] LABS: BASOPHILS 0.5 % (0.0-2.0); EOSINOPHILS 3.8 % (0.0-6.0); EOSINOPHILS# 0.2 X 10^3uL (0.0-0.4); HEMATOCRIT 35.1 % (42.0-54.0); HEMOGLOBIN 11.6 g/dL (14.0-18.0); LYMPHOCYTES 18.5 % (20.0-40.0); MEAN CELL VOLUME 91.6 fL (80.0-100.0); MEAN CORPUS. HGB CONCENTRATION 33.1 g/dL (32.0-36.0); MEAN CORPUSCULAR HEMOGLOBIN 30.3 pg (29.0-35.0); MEAN PLATELET VOLUME 8.8 fL (7.4-10.4); MONOCYTES 9.6 % (2.0-10.0); MONOCYTES# 0.5 X 10^3uL (0.2-1.0); NEUTROPHILS 67.6 % (54.0-75.0); NEUTROPHILS# 3.5 X 10^3uL (2.6-6.7); PLATELET COUNT 222 X 10^3uL (130-440); RED BLOOD COUNT 3.83 X 10^6uL (4.20-6.10); WHITE BLOOD COUNT 5.2 X 10^3uL (3.9-10.7)
[2017-01-16] MEDS: ACETAMINOPHEN ER 650 MG TAB.SR.8HR PO SCH ×3 (08:53→20:46)
[2017-01-16] MEDS: DOCUSATE SODIUM 100 MG CAPSULE PO SCH ×2 (08:53→20:46)
[2017-01-16] MEDS: FAMOTIDINE 20 MG TABLET PO SCH ×2 (08:54→16:59)
[2017-01-16] MEDS: PROBIOTIC 1 CAP CAPSULE PO SCH (08:54)
[2017-01-16] MEDS: FUROSEMIDE 20 MG TABLET PO SCH (08:54)
[2017-01-16] MEDS: POTASSIUM CHLORIDE 8 MEQ PO SCH (08:54)
[2017-01-16] MEDS: REMOVE PATCH 1 PATCH PATCH TRANSDERM SCH (08:55)
[2017-01-16] MEDS: metoprolol SUCC ER 25 MG TABLET PO SCH (09:08)
[2017-01-16 09:40] LABS: POTASSIUM 4.4 mmol/L (3.5-5.1)
[2017-01-16] MEDS: predniSONE 5 MG TABLET PO SCH (11:58)
[2017-01-16] MEDS: CALCITONIN,SALMON 1 SPRAY BOTTLE NASAL SCH (11:59)
--- NOTE | 2017-01-16 12:47 | PROGRESS NOTE: IM APSO ---
Assessment and Plan - Date of Encounter Date of Encounter: 01/16/17 (1) Compression fracture Status: Acute Assessment and plan: Prior compression fracture at T10 and now with a new compression fracture at L2. Admitted to swing bed for ongoing pain control and rehabilitation. Not a candidate for kyphoplasty considering age and comorbidities. Working with physical therapy and occupational therapy. Using a thoracic brace with tolerance and some success. Pain reasonably well controlled with nonmedication and medication modalities including Tylenol, oxycodone, Lidoderm, calcitonin. Care conference yesterday. Anticipate discharge to home next week if he continues to make progress. Continue calcitonin. Anticipate transition to bisphosphonate in 2 months. Current Visit: Yes (2) Coronary artery disease Status: Chronic Current Visit: No (3) CHF (congestive heart failure), NYHA class IV Status: Chronic Current Visit: Yes (4) Atrial fibrillation Status: Chronic Assessment and plan: Stable on amiodarone, metoprolol, warfarin. INR is therapeutic. Reassess INR on Thursday. Current Visit: Yes (5) Aortic stenosis Status: Chronic Current Visit: No (6) Mitral stenosis Status: Chronic Current Visit: No (7) CKD (chronic kidney disease), stage III Status: Chronic Current Visit: Yes (8) History of SBE (subacute bacterial endocarditis) Status: Resolved Assessment and plan: No evidence of recurrence. Now off of antibiotic therapy. Follow clinically. Current Visit: No (9) DVT prophylaxis Status: Acute Assessment and plan: Fully anticoagulated with Coumadin. Current Visit: Yes - Time Spent With Patient Total time spent with greater than 50% in coordination of care (as documented) at patient's floor/unit and/or counseling patient: less than 15 minutes Estimated anticipated discharge: Next week. IM: PN Subjective General: depression (intermittently discouraged, better today), no anxiety, no fever, no chills Cardiovascular: no chest pain, no palpitations Respiratory: no cough, no wheeze, no SOB Gastrointestinal: no abdominal pain, no nausea, no vomiting, no diarrhea, no constipation Genitourinary: no dysuria Musculoskeletal: pain (10. Better today.) Integumentary: dryness, wound (LUE skin tear from near fall on Thursday evening) Neurological: limb weakness (diffuse, bilateral lower extremities more than upper extremities), no numbness, no tingling IM: PN Objective Exam - I&O/Vital Signs I&O: Intake & Output 01/15/17 01/16/17 01/16/17 21:59 05:59 13:59 Intake Total 390 Output Total 300 Balance 390 -300 Intake: Oral 390 Output: Urine 300 Other: Urine Appearance Clear Clear Urine Color Yellow Yellow Voiding Method Urinal Toilet # Voids 1 Vital Signs: Last Vital Signs Temp 36.4 C L 01/16/17 06:20 Pulse 71 01/16/17 06:20 Resp 16 01/16/17 09:00 BP 111/66 01/16/17 06:20 Pulse Ox 94 01/16/17 09:00 Oxygen Flow Rate 2 Oxygen Delivery Method Nasal Cannula - Constitutional General appearance: Present: thin. Absent: acute distress - Head Head exam: Present: atraumatic - Eye Eye exam: Absent: scleral icterus - Respiratory Respiratory exam: Present: decreased breath sounds, rales (right greater than left base). Absent: respiratory distress, rhonchi, wheezes - Cardiovascular Cardiovascular exam: Present: RRR, systolic murmur (crescendo/decrescendo) - GI/Abdominal GI/Abdominal exam: Present: distended, normal bowel sounds, soft. Absent: firm , rebound, rigid, tenderness - Extremities Exam Extremities exam: Present: edema (trace). Absent: calf tenderness - Back Exam Back exam: Present: other (thoracic brace in place) - Neurological Exam Neurological exam: Present: oriented X3 - Psychiatric Psychiatric exam: Absent: anxious, depressed - Skin Skin exam: Present: dry, other (dressing in place LUE). Absent: rash - Allied Health Notes Allied health notes reviewed: case management, nursing, PT - Lab Labs: Laboratory Last Values WBC 5.2 X 10^3uL (3.9-10.7) 01/16/17 05:45 RBC 3.83 X 10^6uL (4.20-6.10) L 01/16/17 05:45 Hgb 11.6 g/dL (14.0-18.0) L 01/16/17 05:45 Hct 35.1 % (42.0-54.0) L 01/16/17 05:45 MCV 91.6 fL (80.0-100.0) 01/16/17 05:45 MCH 30.3 pg (29.0-35.0) 01/16/17 05:45 MCHC 33.1 g/dL (32.0-36.0) 01/16/17 05:45 RDW 16.0 % (11.5-14.5) H 01/16/17 05:45 Plt Count 222 X 10^3uL (130-440) 01/16/17 05:45 MPV 8.8 fL (7.4-10.4) 01/16/17 05:45 Neutrophils % 67.6 % (54.0-75.0) 01/16/17 05:45 Lymphocytes % 18.5 % (20.0-40.0) L 01/16/17 05:45 Eosinophils % 3.8 % (0.0-6.0) 01/16/17 05:45 Basophils % 0.5 % (0.0-2.0) 01/16/17 05:45 Neutrophils # 3.5 X 10^3uL (2.6-6.7) 01/16/17 05:45 Lymphocytes # 1.0 X 10^3uL (0.8-3.8) 01/16/17 05:45 Monocytes 9.6 % (2.0-10.0) 01/16/17 05:45 Monocytes # 0.5 X 10^3uL (0.2-1.0) 01/16/17 05:45 Eosinophils # 0.2 X 10^3uL (0.0-0.4) 01/16/17 05:45 Basophils # 0.0 X 10^3uL (0.0-0.1) 01/16/17 05:45 PT 26.6 sec (13.0-16.6) H 01/13/17 07:50 Capillary INR 2.8 (0.8-1.2) H 01/16/17 05:45 INR 1.7 01/13/17 07:50 Sodium 139 mmol/L (137-145) 01/16/17 05:45 Potassium 4.4 mmol/L (3.5-5.1) 01/16/17 05:45 Chloride 106 mmol/L (98-107) 01/16/17 05:45 Carbon Dioxide 25 mmol/L (22-30) 01/16/17 05:45 BUN 30 mg/dL (9-20) H 01/16/17 05:45 Creatinine 1.5 mg/dL (0.7-1.3) H 01/16/17 05:45 GFR Calculation Not Reportable 01/16/17 05:45 Glucose 83 mg/dL (70-100) 01/16/17 05:45 Calcium 9.4 mg/dL (8.4-10.2) 01/16/17 05:45 Magnesium 2.0 mg/dL (1.6-2.3) 01/13/17 07:50 Urine Color Yellow 01/11/17 09:21 Urine Appearance Clear 01/11/17 09:21 Urine pH 5.0 (5-7) 01/11/17 09:21 Ur Specific [place] 1.015 (0.001-1.035) 01/11/17 09:21 Urine Protein Negative (NEG - TRACE) 01/11/17 09:21 Urine Ketones Negative (NEGATIVE) 01/11/17 09:21 Urine Blood Negative (NEGATIVE) 01/11/17 09:21 Urine Nitrate Negative (NEGATIVE) 01/11/17 09:21 Urine Bilirubin Negative (NEGATIVE) 01/11/17 09:21 Urine Urobilinogen 0.2mg/dl (normal) (NEG-1mg/dL) 01/11/17 09:21 Ur Leukocyte Esterase Negative (NEGATIVE) 01/11/17 09:21 Urine RBC None seen (0-5/hpf) 01/11/17 09:21 Urine WBC None seen (0-4/hpf) 01/11/17 09:21 Ur Squamous Epith Cells 0-5/hpf (<= 15/hpf) 01/11/17 09:21 Urine Bacteria None seen (<10/hpf) 01/11/17 09:21 Urine Mucus None seen (Up to 25%) 01/11/17 09:21 Urine Glucose Normal (NEGATIVE) 01/11/17 09:21 (2) Coronary artery disease Qualifiers: Coronary Disease-Associated Artery/Lesion type: [place] artery [place] vs. transplanted heart: [place] heart Associated angina: without angina Qualified Code(s): I25.10 - Atherosclerotic heart disease of [place] coronary artery without angina pectoris (3) CHF (congestive heart failure), NYHA class IV Qualifiers: Congestive heart failure type: systolic Congestive heart failure chronicity: chronic Qualified Code(s): I50.22 - Chronic systolic (congestive) heart failure (4) Atrial fibrillation Qualifiers: Atrial fibrillation type: paroxysmal (5) Aortic stenosis Qualifiers: Cardiac valve disease etiology: etiology unspecified (6) Mitral stenosis Qualifiers: Cardiac valve disease etiology: etiology unspecified 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
[2017-01-16] MEDS: WARFARIN SODIUM 2 MG TABLET PO SCH (16:56)
[2017-01-16] MEDS: FERROUS SULFATE 325 MG TABLET PO SCH (16:59)
[2017-01-16] MEDS: AMIODARONE HCL 200 MG TABLET PO SCH (20:46)
[2017-01-16] MEDS: LIDOCAINE 5% 1 PATCH PATCH TOPICAL SCH (20:47)
[2017-01-16] MEDS: POLYETHYLENE GLYCOL 3350 17 GM POWD.PACK PO PRN (20:52)
[2017-01-17] MEDS: ACETAMINOPHEN ER 650 MG TAB.SR.8HR PO SCH ×3 (09:05→20:38)
[2017-01-17] MEDS: DOCUSATE SODIUM 100 MG CAPSULE PO SCH ×2 (09:05→20:37)
[2017-01-17] MEDS: POTASSIUM CHLORIDE 8 MEQ PO SCH (09:06)
[2017-01-17] MEDS: PROBIOTIC 1 CAP CAPSULE PO SCH (09:06)
[2017-01-17] MEDS: FUROSEMIDE 20 MG TABLET PO SCH (09:06)
[2017-01-17] MEDS: REMOVE PATCH 1 PATCH PATCH TRANSDERM SCH (09:06)
[2017-01-17] MEDS: FAMOTIDINE 20 MG TABLET PO SCH ×2 (09:06→18:01)
[2017-01-17] MEDS: metoprolol SUCC ER 25 MG TABLET PO SCH (09:06)
[2017-01-17] MEDS: predniSONE 5 MG TABLET PO SCH (12:19)
[2017-01-17] MEDS: CALCITONIN,SALMON 1 SPRAY BOTTLE NASAL SCH (12:19)
[2017-01-17] MEDS: ONDANSETRON ODT 4 MG TAB.RAPDIS PO PRN (13:29)
[2017-01-17] MEDS: WARFARIN SODIUM 2 MG TABLET PO SCH (16:29)
[2017-01-17] MEDS: FERROUS SULFATE 325 MG TABLET PO SCH (18:01)
[2017-01-17] MEDS: LIDOCAINE 5% 1 PATCH PATCH TOPICAL SCH (20:05)
[2017-01-17] MEDS: POLYETHYLENE GLYCOL 3350 17 GM POWD.PACK PO PRN (20:33)
[2017-01-17] MEDS: AMIODARONE HCL 200 MG TABLET PO SCH (20:37)
[2017-01-18] MEDS: ACETAMINOPHEN ER 650 MG TAB.SR.8HR PO SCH ×3 (08:47→21:02)
[2017-01-18] MEDS: metoprolol SUCC ER 25 MG TABLET PO SCH (08:48)
[2017-01-18] MEDS: FAMOTIDINE 20 MG TABLET PO SCH ×2 (08:48→18:08)
[2017-01-18] MEDS: FUROSEMIDE 20 MG TABLET PO SCH (08:48)
[2017-01-18] MEDS: PROBIOTIC 1 CAP CAPSULE PO SCH (08:48)
[2017-01-18] MEDS: DOCUSATE SODIUM 100 MG CAPSULE PO SCH (08:48)
[2017-01-18] MEDS: POLYETHYLENE GLYCOL 3350 17 GM POWD.PACK PO PRN ×2 (08:49→21:08)
[2017-01-18] MEDS: POTASSIUM CHLORIDE 8 MEQ PO SCH (08:49)
[2017-01-18] MEDS: REMOVE PATCH 1 PATCH PATCH TRANSDERM SCH (08:50)
[2017-01-18] MEDS: predniSONE 5 MG TABLET PO SCH (13:13)
[2017-01-18] MEDS: CALCITONIN,SALMON 1 SPRAY BOTTLE NASAL SCH (13:14)
[2017-01-18] MEDS: WARFARIN SODIUM 2 MG TABLET PO SCH (16:50)
[2017-01-18] MEDS: FERROUS SULFATE 325 MG TABLET PO SCH (18:08)
[2017-01-18] MEDS: SENNOSIDES/DOCUSATE SODIUM 1 TAB TABLET PO SCH (21:02)
[2017-01-18] MEDS: AMIODARONE HCL 200 MG TABLET PO SCH (21:02)
[2017-01-18] MEDS: LIDOCAINE 5% 1 PATCH PATCH TOPICAL SCH (21:03)
[2017-01-19] MEDS: FUROSEMIDE 20 MG TABLET PO SCH (09:31)
[2017-01-19] MEDS: FAMOTIDINE 20 MG TABLET PO SCH ×2 (09:31→18:02)
[2017-01-19] MEDS: metoprolol SUCC ER 25 MG TABLET PO SCH (09:32)
[2017-01-19] MEDS: PROBIOTIC 1 CAP CAPSULE PO SCH (09:32)
[2017-01-19] MEDS: ACETAMINOPHEN ER 650 MG TAB.SR.8HR PO SCH ×3 (09:32→20:31)
[2017-01-19] MEDS: POTASSIUM CHLORIDE 8 MEQ PO SCH (09:32)
[2017-01-19] MEDS: REMOVE PATCH 1 PATCH PATCH TRANSDERM SCH (09:32)
--- NOTE | 2017-01-19 09:48 | PROGRESS NOTE: IM APSO ---
Assessment and Plan - Date of Encounter Date of Encounter: 01/19/17 (1) Compression fracture Status: Acute Assessment and plan: Prior compression fracture at T10 and now with a new compression fracture at L2. Admitted to swing bed for ongoing pain control and rehabilitation. Not a candidate for kyphoplasty considering age and comorbidities. Working with physical therapy and occupational therapy. Using a thoracic brace with tolerance and some success. Pain reasonably well controlled with nonmedication and medication modalities including brace, Tylenol, oxycodone, Lidoderm, calcitonin. Care conference again today. Possibly discharge home later this week , although he is not yet transferring independently. Continue calcitonin. Anticipate transition to bisphosphonate in 2 months. Current Visit: Yes (2) Coronary artery disease Status: Chronic Assessment and plan: Stable. Remains on appropriate cardiac regimen including beta brett, aspirin, warfarin. Statin therapy currently being held in the setting of PMR. Will plan to restart statin therapy once more medically stable. Current Visit: No (3) CHF (congestive heart failure), NYHA class IV Status: Chronic Assessment and plan: Difficult situation but not significantly changed from baseline. Remains on beta brett and diuretic therapy. Low O2 requirement. Current Visit: Yes (4) Atrial fibrillation Status: Chronic Assessment and plan: Stable on amiodarone, metoprolol, warfarin. INR is supra-therapeutic. warfarin today. Reassess INR in the morning. Current Visit: Yes (5) Aortic stenosis Status: Chronic Current Visit: No (6) Mitral stenosis Status: Chronic Current Visit: No (7) CKD (chronic kidney disease), stage III Status: Chronic Assessment and plan: Stable. Current Visit: Yes (8) History of SBE (subacute bacterial endocarditis) Status: Resolved Assessment and plan: No evidence of recurrence. Now off of antibiotic therapy. Follow clinically. Current Visit: No (9) DVT prophylaxis Status: Acute Assessment and plan: Fully anticoagulated with Coumadin. Current Visit: Yes - Time Spent With Patient Total time spent with greater than 50% in coordination of care (as documented) at patient's floor/unit and/or counseling patient: less than 15 minutes Estimated anticipated discharge: End of the week. IM: PN Subjective General: no anxiety, no depression (intermittently discouraged, better today), no fever, no chills Cardiovascular: no chest pain, no palpitations Respiratory: no cough, no wheeze, no SOB Gastrointestinal: constipation (mild), no abdominal pain, no nausea, no vomiting , no diarrhea Genitourinary: no dysuria Musculoskeletal: pain (continues to gradually improve) Integumentary: dryness, wound (LUE skin tear from near fall last week) Neurological: limb weakness (diffuse, bilateral lower extremities more than upper extremities), no numbness, no tingling IM: PN Objective Exam - I&O/Vital Signs I&O: Intake & Output 01/18/17 01/19/17 01/19/17 21:59 05:59 13:59 Intake Total 1256 150 Output Total 850 250 Balance 406 -100 Intake: Oral 1256 150 Output: Urine 850 250 Other: Urine Appearance Clear Urine Color Yellow Voiding Method Urinal Toilet # Voids 1 Vital Signs: Last Vital Signs Temp 36.2 C L 01/19/17 06:22 Pulse 60 01/19/17 06:22 Resp 16 01/19/17 06:22 BP 116/66 01/19/17 06:22 Pulse Ox 94 01/19/17 09:10 Oxygen Flow Rate 2 Oxygen Delivery Method Nasal Cannula - Constitutional General appearance: Present: thin. Absent: acute distress - Eye Eye exam: Absent: scleral icterus - ENT ENT exam: Present: mucous membranes moist - Respiratory Respiratory exam: Present: decreased breath sounds, rales (right greater than left base). Absent: respiratory distress, rhonchi, wheezes - Cardiovascular Cardiovascular exam: Present: RRR, systolic murmur (crescendo/decrescendo, harsh ) - GI/Abdominal GI/Abdominal exam: Present: distended (mild/mod), normal bowel sounds, soft. Absent: firm, rebound, rigid, tenderness - Extremities Exam Extremities exam: Present: edema (tr-1+). Absent: calf tenderness - Back Exam Back exam: Present: other (thoracic brace in place) - Neurological Exam Neurological exam: Present: oriented X3 - Psychiatric Psychiatric exam: Absent: anxious, depressed - Skin Skin exam: Present: dry, other (dressing in place LUE). Absent: rash - Allied Health Notes Allied health notes reviewed: case management, nursing, PT - Lab Labs: Laboratory Last Values WBC 5.2 X 10^3uL (3.9-10.7) 01/16/17 05:45 RBC 3.83 X 10^6uL (4.20-6.10) L 07/07/17 05:45 Hgb 11.6 g/dL (14.0-18.0) L 01/16/17 05:45 Hct 35.1 % (42.0-54.0) L 01/16/17 05:45 MCV 91.6 fL (80.0-100.0) 01/16/17 05:45 MCH 30.3 pg (29.0-35.0) 01/16/17 05:45 MCHC 33.1 g/dL (32.0-36.0) 01/16/17 05:45 RDW 16.0 % (11.5-14.5) H 01/16/17 05:45 Plt Count 222 X 10^3uL (130-440) 01/16/17 05:45 MPV 8.8 fL (7.4-10.4) 01/16/17 05:45 Neutrophils % 67.6 % (54.0-75.0) 01/16/17 05:45 Lymphocytes % 18.5 % (20.0-40.0) L 01/16/17 05:45 Eosinophils % 3.8 % (0.0-6.0) 01/16/17 05:45 Basophils % 0.5 % (0.0-2.0) 01/16/17 05:45 Neutrophils # 3.5 X 10^3uL (2.6-6.7) 01/16/17 05:45 Lymphocytes # 1.0 X 10^3uL (0.8-3.8) 01/16/17 05:45 Monocytes 9.6 % (2.0-10.0) 01/16/17 05:45 Monocytes # 0.5 X 10^3uL (0.2-1.0) 01/16/17 05:45 Eosinophils # 0.2 X 10^3uL (0.0-0.4) 01/16/17 05:45 Basophils # 0.0 X 10^3uL (0.0-0.1) 01/16/17 05:45 PT 26.6 sec (13.0-16.6) H 01/13/17 07:50 Capillary INR 3.7 (0.8-1.2) H D 01/19/17 06:00 INR 1.7 01/13/17 07:50 Sodium 139 mmol/L (137-145) 01/16/17 05:45 Potassium 4.4 mmol/L (3.5-5.1) 01/16/17 05:45 Chloride 106 mmol/L (98-107) 01/16/17 05:45 Carbon Dioxide 25 mmol/L (22-30) 01/16/17 05:45 BUN 30 mg/dL (9-20) H 01/16/17 05:45 Creatinine 1.5 mg/dL (0.7-1.3) H 01/16/17 05:45 GFR Calculation Not Reportable 01/16/17 05:45 Glucose 83 mg/dL (70-100) 01/16/17 05:45 Calcium 9.4 mg/dL (8.4-10.2) 01/16/17 05:45 Magnesium 2.0 mg/dL (1.6-2.3) 01/13/17 07:50 Urine Color Yellow 01/11/17 09:21 Urine Appearance Clear 01/11/17 09:21 Urine pH 5.0 (5-7) 01/11/17 09:21 Ur Specific [place] 1.015 (0.001-1.035) 01/11/17 09:21 Urine Protein Negative (NEG - TRACE) 01/11/17 09:21 Urine Ketones Negative (NEGATIVE) 01/11/17 09:21 Urine Blood Negative (NEGATIVE) 01/11/17 09:21 Urine Nitrate Negative (NEGATIVE) 01/11/17 09:21 Urine Bilirubin Negative (NEGATIVE) 01/11/17 09:21 Urine Urobilinogen 0.2mg/dl (normal) (NEG-1mg/dL) 01/11/17 09:21 Ur Leukocyte Esterase Negative (NEGATIVE) 01/11/17 09:21 Urine RBC None seen (0-5/hpf) 01/11/17 09:21 Urine WBC None seen (0-4/hpf) 01/11/17 09:21 Ur Squamous Epith Cells 0-5/hpf (<= 15/hpf) 01/11/17 09:21 Urine Bacteria None seen (<10/hpf) 01/11/17 09:21 Urine Mucus None seen (Up to 25%) 01/11/17 09:21 Urine Glucose Normal (NEGATIVE) 01/11/17 09:21 (2) Coronary artery disease Qualifiers: Coronary Disease-Associated Artery/Lesion type: [place] artery [place] vs. transplanted heart: [place] heart Associated angina: without angina Qualified Code(s): I25.10 - Atherosclerotic heart disease of [place] coronary artery without angina pectoris (3) CHF (congestive heart failure), NYHA class IV Qualifiers: Congestive heart failure type: systolic Congestive heart failure chronicity: chronic Qualified Code(s): I50.22 - Chronic systolic (congestive) heart failure (4) Atrial fibrillation Qualifiers: Atrial fibrillation type: paroxysmal (5) Aortic stenosis Qualifiers: Cardiac valve disease etiology: etiology unspecified (6) Mitral stenosis Qualifiers: Cardiac valve disease etiology: etiology unspecified 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
[2017-01-19] MEDS: CALCITONIN,SALMON 1 SPRAY BOTTLE NASAL SCH (11:58)
[2017-01-19] MEDS: predniSONE 5 MG TABLET PO SCH (11:58)
[2017-01-19] MEDS: FERROUS SULFATE 325 MG TABLET PO SCH (18:02)
[2017-01-19] MEDS: AMIODARONE HCL 200 MG TABLET PO SCH (20:29)
[2017-01-19] MEDS: LIDOCAINE 5% 1 PATCH PATCH TOPICAL SCH (20:30)
[2017-01-19] MEDS: SENNOSIDES/DOCUSATE SODIUM 1 TAB TABLET PO SCH (20:31)
[2017-01-20] MEDS: PROBIOTIC 1 CAP CAPSULE PO SCH (08:21)
[2017-01-20] MEDS: FUROSEMIDE 20 MG TABLET PO SCH (08:22)
[2017-01-20] MEDS: POTASSIUM CHLORIDE 8 MEQ PO SCH (08:25)
[2017-01-20] MEDS: REMOVE PATCH 1 PATCH PATCH TRANSDERM SCH (08:25)
[2017-01-20] MEDS: FAMOTIDINE 20 MG TABLET PO SCH ×2 (08:25→18:57)
[2017-01-20] MEDS: metoprolol SUCC ER 25 MG TABLET PO SCH (08:26)
[2017-01-20] MEDS: ACETAMINOPHEN ER 650 MG TAB.SR.8HR PO SCH ×3 (08:27→20:42)
[2017-01-20] MEDS: ONDANSETRON ODT 4 MG TAB.RAPDIS PO PRN (11:20)
[2017-01-20] MEDS: predniSONE 5 MG TABLET PO SCH (12:34)
[2017-01-20] MEDS: CALCITONIN,SALMON 1 SPRAY BOTTLE NASAL SCH (12:35)
[2017-01-20] MEDS: FERROUS SULFATE 325 MG TABLET PO SCH (18:57)
[2017-01-20] MEDS: AMIODARONE HCL 200 MG TABLET PO SCH (20:41)
[2017-01-20] MEDS: LIDOCAINE 5% 1 PATCH PATCH TOPICAL SCH (20:41)
[2017-01-20] MEDS: SENNOSIDES/DOCUSATE SODIUM 1 TAB TABLET PO SCH (20:42)
[2017-01-21] MEDS: ONDANSETRON ODT 4 MG TAB.RAPDIS PO PRN (05:27)
[2017-01-21] MEDS: FAMOTIDINE 20 MG TABLET PO SCH ×2 (09:16→18:08)
[2017-01-21] MEDS: PROBIOTIC 1 CAP CAPSULE PO SCH (09:25)
[2017-01-21] MEDS: ACETAMINOPHEN ER 650 MG TAB.SR.8HR PO SCH ×3 (09:25→21:27)
[2017-01-21] MEDS: FUROSEMIDE 20 MG TABLET PO SCH (09:26)
[2017-01-21] MEDS: POTASSIUM CHLORIDE 8 MEQ PO SCH (09:27)
[2017-01-21] MEDS: REMOVE PATCH 1 PATCH PATCH TRANSDERM SCH (09:28)
[2017-01-21] MEDS: metoprolol SUCC ER 25 MG TABLET PO SCH (09:30)
[2017-01-21] MEDS: predniSONE 5 MG TABLET PO SCH (11:53)
[2017-01-21] MEDS: CALCITONIN,SALMON 1 SPRAY BOTTLE NASAL SCH (11:54)
[2017-01-21] MEDS ORDERED: WARFARIN SODIUM 2 MG TABLET PO SCH (12:00)
--- NOTE | 2017-01-21 12:07 | PROGRESS NOTE: IM APSO ---
Assessment and Plan - Date of Encounter Date of Encounter: 01/21/17 (1) Compression fracture Status: Acute Assessment and plan: Prior compression fracture at T10 and now with a new compression fracture at L2. Admitted to swing bed for ongoing pain control and rehabilitation. Not a candidate for kyphoplasty considering age and comorbidities. Working with physical therapy and occupational therapy. Using a thoracic brace with tolerance and some success. Treatment regimen including brace, Tylenol, oxycodone, Lidoderm, calcitonin. Continue calcitonin. Anticipate transition to bisphosphonate in 2 months. With pain setback yesterday and today, he will not be appropriate for discharge tomorrow and will plan to reassess as the week progresses. If not making consistent progress, may need to consider PP for longer term rehabilitation. Current Visit: Yes (2) Nausea without vomiting Status: Acute Assessment and plan: May be due to worsening pain or to recent bowel regimen. Check labs including blood counts, chemistries, urinalysis, lipase. Heme check stool considering loose stool with darker appearance per patient. He has no cardiac or pulmonary symptoms and no evidence on exam of cardiac decompensation. Current Visit: Yes (3) Coronary artery disease Status: Chronic Assessment and plan: Remains on appropriate cardiac regimen including beta brett, aspirin, warfarin. Statin therapy currently being held in the setting of PMR. Will plan to restart statin therapy once more medically stable. Current Visit: No (4) CHF (congestive heart failure), NYHA class IV Status: Chronic Assessment and plan: Not significantly changed from baseline. Remains on beta brett and diuretic therapy. Low O2 requirement. Current Visit: Yes (5) Atrial fibrillation Status: Chronic Assessment and plan: Stable on amiodarone, metoprolol, warfarin. INR is therapeutic. Warfarin restarted today. Reassess INR Thursday. Current Visit: Yes (6) Aortic stenosis Status: Chronic Current Visit: No (7) Mitral stenosis Status: Chronic Current Visit: No (8) CKD (chronic kidney disease), stage III Status: Chronic Assessment and plan: Stable. Reassess renal function today. Current Visit: Yes (9) History of SBE (subacute bacterial endocarditis) Status: Resolved Assessment and plan: No evidence of recurrence. Now off of antibiotic therapy. Follow clinically. Current Visit: No (10) DVT prophylaxis Status: Acute Assessment and plan: Fully anticoagulated with Coumadin. Current Visit: Yes - Time Spent With Patient Total time spent with greater than 50% in coordination of care (as documented) at patient's floor/unit and/or counseling patient: 25 - 35 minutes Estimated anticipated discharge: Early next week. IM: PN Subjective Interval history: Yesterday and today, having considerable increase in pain in his low back. He has attributed this to increased physical therapy activity as well as an episode of being startled this morning. In association, more difficulty sitting up and ambulating. Does admit to nausea but waxing and waning intensity. No abdominal pain. Loose stools yesterday and today after bowel regimen. States that these were darker. Feels very uncomfortable with the idea of going home with this setback. General: depression (discouraged today), no anxiety, no fever, no chills Cardiovascular: no chest pain, no palpitations Respiratory: no cough, no wheeze, no SOB Gastrointestinal: nausea, diarrhea (loose stools), no abdominal pain, no vomiting Genitourinary: no dysuria Musculoskeletal: pain (worsened yesterday and today) Integumentary: dryness, wound (LUE skin tear from near fall last week) Neurological: limb weakness (diffuse, bilateral lower extremities more than upper extremities), no numbness, no tingling IM: PN Objective Exam - I&O/Vital Signs I&O: Intake & Output 01/20/17 01/21/17 01/21/17 21:59 05:59 13:59 Intake Total 200 200 Output Total 300 Balance -300 200 200 Intake: Oral 200 200 Output: Urine 300 Other: Urine Appearance Clear Urine Color Yellow Stool Size Copious Copious Stool Characteristics Black Black Voiding Method Toilet Toilet Toilet # Voids 2 2 # Bowel Movements 1 Vital Signs: Last Vital Signs Temp 37.1 C 01/21/17 06:01 Pulse 105 H 01/21/17 06:01 Resp 18 01/21/17 09:00 BP 105/66 01/21/17 06:01 Pulse Ox 93 01/21/17 09:00 Oxygen Flow Rate 0.5 Oxygen Delivery Method Room Air - Constitutional General appearance: Present: mild distress (uncomfortable appearing), thin. Absent: acute distress - Head Head exam: Present: atraumatic - Eye Eye exam: Absent: scleral icterus - ENT ENT exam: Present: mucous membranes moist - Respiratory Respiratory exam: Present: decreased breath sounds, rales (right greater than left base). Absent: respiratory distress, rhonchi, wheezes - Cardiovascular Cardiovascular exam: Present: irregular rhythm, systolic murmur (crescendo/ decrescendo, harsh). Absent: S3 - GI/Abdominal GI/Abdominal exam: Present: distended (mild/mod), normal bowel sounds, soft. Absent: firm, organomegaly, rebound, rigid, tenderness - Extremities Exam Extremities exam: Present: edema (tr). Absent: calf tenderness - Neurological Exam Neurological exam: Present: oriented X3 - Psychiatric Psychiatric exam: Present: depressed. Absent: anxious - Skin Skin exam: Present: dry, other (dressing in place LUE). Absent: rash - Allied Health Notes Allied health notes reviewed: case management, nursing, PT - Lab Labs: Laboratory Last Values WBC 5.2 X 10^3uL (3.9-10.7) 01/16/17 05:45 RBC 3.83 X 10^6uL (4.20-6.10) L 01/16/17 05:45 Hgb 11.6 g/dL (14.0-18.0) L 01/16/17 05:45 Hct 35.1 % (42.0-54.0) L 01/16/17 05:45 MCV 91.6 fL (80.0-100.0) 01/16/17 05:45 MCH 30.3 pg (29.0-35.0) 01/16/17 05:45 MCHC 33.1 g/dL (32.0-36.0) 01/16/17 05:45 RDW 16.0 % (11.5-14.5) H 01/16/17 05:45 Plt Count 222 X 10^3uL (130-440) 01/16/17 05:45 MPV 8.8 fL (7.4-10.4) 01/16/17 05:45 Neutrophils % 67.6 % (54.0-75.0) 01/16/17 05:45 Lymphocytes % 18.5 % (20.0-40.0) L 01/16/17 05:45 Eosinophils % 3.8 % (0.0-6.0) 01/16/17 05:45 Basophils % 0.5 % (0.0-2.0) 01/16/17 05:45 Neutrophils # 3.5 X 10^3uL (2.6-6.7) 01/16/17 05:45 Lymphocytes # 1.0 X 10^3uL (0.8-3.8) 01/16/17 05:45 Monocytes 9.6 % (2.0-10.0) 01/16/17 05:45 Monocytes # 0.5 X 10^3uL (0.2-1.0) 01/16/17 05:45 Eosinophils # 0.2 X 10^3uL (0.0-0.4) 01/16/17 05:45 Basophils # 0.0 X 10^3uL (0.0-0.1) 01/16/17 05:45 PT 26.6 sec (13.0-16.6) H 01/13/17 07:50 Capillary INR 2.3 (0.8-1.2) H D 01/21/17 05:45 INR 1.7 01/13/17 07:50 Sodium 139 mmol/L (137-145) 01/16/17 05:45 Potassium 4.4 mmol/L (3.5-5.1) 01/16/17 05:45 Chloride 106 mmol/L (98-107) 01/16/17 05:45 Carbon Dioxide 25 mmol/L (22-30) 01/16/17 05:45 BUN 30 mg/dL (9-20) H 01/16/17 05:45 Creatinine 1.5 mg/dL (0.7-1.3) H 01/16/17 05:45 GFR Calculation Not Reportable 01/16/17 05:45 Glucose 83 mg/dL (70-100) 01/16/17 05:45 Calcium 9.4 mg/dL (8.4-10.2) 01/16/17 05:45 Magnesium 2.0 mg/dL (1.6-2.3) 01/13/17 07:50 Urine Color Yellow 01/11/17 09:21 Urine Appearance Clear 01/11/17 09:21 Urine pH 5.0 (5-7) 01/11/17 09:21 Ur Specific [place] 1.015 (0.001-1.035) 01/11/17 09:21 Urine Protein Negative (NEG - TRACE) 01/11/17 09:21 Urine Ketones Negative (NEGATIVE) 01/11/17 09:21 Urine Blood Negative (NEGATIVE) 01/11/17 09:21 Urine Nitrate Negative (NEGATIVE) 01/11/17 09:21 Urine Bilirubin Negative (NEGATIVE) 01/11/17 09:21 Urine Urobilinogen 0.2mg/dl (normal) (NEG-1mg/dL) 01/11/17 09:21 Ur Leukocyte Esterase Negative (NEGATIVE) 01/11/17 09:21 Urine RBC None seen (0-5/hpf) 01/11/17 09:21 Urine WBC None seen (0-4/hpf) 01/11/17 09:21 Ur Squamous Epith Cells 0-5/hpf (<= 15/hpf) 01/11/17 09:21 Urine Bacteria None seen (<10/hpf) 01/11/17 09:21 Urine Mucus None seen (Up to 25%) 01/11/17 09:21 Urine Glucose Normal (NEGATIVE) 01/11/17 09:21 (3) Coronary artery disease Qualifiers: Coronary Disease-Associated Artery/Lesion type: [place] artery [place] vs. transplanted heart: [place] heart Associated angina: without angina Qualified Code(s): I25.10 - Atherosclerotic heart disease of [place] coronary artery without angina pectoris (4) CHF (congestive heart failure), NYHA class IV Qualifiers: Congestive heart failure type: systolic Congestive heart failure chronicity: chronic Qualified Code(s): I50.22 - Chronic systolic (congestive) heart failure (5) Atrial fibrillation Qualifiers: Atrial fibrillation type: paroxysmal (6) Aortic stenosis Qualifiers: Cardiac valve disease etiology: etiology unspecified (7) Mitral stenosis Qualifiers: Cardiac valve disease etiology: etiology unspecified 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
[2017-01-21 13:02] LABS: A/G RATIO 1.2; ALBUMIN 3.8 g/dL (3.5-5.0); ALKALINE PHOSPHATASE 158 U/L (38-126); ALT 33 U/L (21-72); AST 41 U/L (17-59); BILIRUBIN, TOTAL 0.8 mg/dL (0.2-1.3); BLOOD UREA NITROGEN 36 mg/dL (9-20); CALCIUM 9.7 mg/dL (8.4-10.2); CHLORIDE 102 mmol/L (98-107); GLUCOSE 133 mg/dL (70-100); LIPASE 86 U/L (23-300); POTASSIUM 4.2 mmol/L (3.5-5.1); SODIUM 139 mmol/L (137-145)
[2017-01-21 13:10] LABS: BASOPHIL# 0.1 X 10^3uL (0.0-0.1); BASOPHILS 0.7 % (0.0-2.0); EOSINOPHILS 0.6 % (0.0-6.0); EOSINOPHILS# 0.1 X 10^3uL (0.0-0.4); HEMOGLOBIN 11.7 g/dL (14.0-18.0); LYMPHOCYTES 10.1 % (20.0-40.0); LYMPHOCYTES# 0.9 X 10^3uL (0.8-3.8); MEAN CELL VOLUME 91.4 fL (80.0-100.0); MEAN CORPUS. HGB CONCENTRATION 33.6 g/dL (32.0-36.0); MEAN CORPUSCULAR HEMOGLOBIN 30.7 pg (29.0-35.0); MEAN PLATELET VOLUME 8.6 fL (7.4-10.4); MONOCYTES 9.5 % (2.0-10.0); MONOCYTES# 0.8 X 10^3uL (0.2-1.0); NEUTROPHILS 79.1 % (54.0-75.0); NEUTROPHILS# 6.9 X 10^3uL (2.6-6.7); PLATELET COUNT 257 X 10^3uL (130-440); RED BLOOD COUNT 3.83 X 10^6uL (4.20-6.10); RED CELL DISTRIBUTION WIDTH 15.9 % (11.5-14.5); WHITE BLOOD COUNT 8.8 X 10^3uL (3.9-10.7)
[2017-01-21] MEDS ORDERED: POTASSIUM CHLORIDE/NS 20 MEQ/1,000 ML BAG IV SCH (16:00)
[2017-01-21] MEDS: FERROUS SULFATE 325 MG TABLET PO SCH (18:08)
[2017-01-21] MEDS: LIDOCAINE 5% 1 PATCH PATCH TOPICAL SCH (21:26)
[2017-01-21] MEDS: AMIODARONE HCL 200 MG TABLET PO SCH (21:26)
[2017-01-22 06:35] LABS: BLOOD UREA NITROGEN 35 mg/dL (9-20); CALCIUM 9.2 mg/dL (8.4-10.2); CHLORIDE 106 mmol/L (98-107); GLUCOSE 81 mg/dL (70-100); POTASSIUM 3.9 mmol/L (3.5-5.1); SODIUM 138 mmol/L (137-145)
[2017-01-22] MEDS: ACETAMINOPHEN ER 650 MG TAB.SR.8HR PO SCH ×3 (09:01→20:38)
[2017-01-22] MEDS: PROBIOTIC 1 CAP CAPSULE PO SCH (09:02)
[2017-01-22] MEDS: FUROSEMIDE 20 MG TABLET PO SCH (09:02)
[2017-01-22] MEDS: REMOVE PATCH 1 PATCH PATCH TRANSDERM SCH (09:04)
[2017-01-22] MEDS: POTASSIUM CHLORIDE 8 MEQ PO SCH (09:04)
[2017-01-22] MEDS: FAMOTIDINE 20 MG TABLET PO SCH ×2 (09:04→17:48)
[2017-01-22] MEDS: metoprolol SUCC ER 25 MG TABLET PO SCH (09:05)
[2017-01-22] MEDS ORDERED: WARFARIN SODIUM 2 MG TABLET PO SCH ×2 (11:32→16:00)
[2017-01-22] MEDS: predniSONE 5 MG TABLET PO SCH (12:10)
[2017-01-22] MEDS: CALCITONIN,SALMON 1 SPRAY BOTTLE NASAL SCH (12:10)
[2017-01-22 17:20] LABS: URINE MUCUS NONE SEEN (Up to 25%); URINE RBC NONE SEEN (0-5/hpf); URINE SQUAMOUS EPITHELIAL CELL NONE SEEN (<= 15/hpf); URINE WBC NONE SEEN (0-4/hpf)
[2017-01-22 17:22] LABS: URINE APPEARANCE CLEAR; URINE BILIRUBIN NEGATIVE (NEGATIVE); URINE BLOOD NEGATIVE (NEGATIVE); URINE COLOR YELLOW; URINE GLUCOSE NORMAL (NEGATIVE); URINE KETONE NEGATIVE (NEGATIVE); URINE LEUKOCYTE ESTERASE NEGATIVE (NEGATIVE); URINE NITRITE NEGATIVE (NEGATIVE); URINE PROTEIN NEGATIVE (NEG - TRACE); URINE UROBILINOGEN 0.2mg/dL (Normal) (NEG-1mg/dL)
[2017-01-22 17:23] LABS: URINE BACTERIA NONE SEEN (<10/hpf)
[2017-01-22] MEDS: FERROUS SULFATE 325 MG TABLET PO SCH (17:47)
[2017-01-22] MEDS: AMIODARONE HCL 200 MG TABLET PO SCH (20:36)
[2017-01-22] MEDS: LIDOCAINE 5% 1 PATCH PATCH TOPICAL SCH (20:37)
[2017-01-23 05:00] VITALS: BP 127/66; PULSE 65; RESP 18; TEMP 97.5; O2SAT 92
--- NOTE | 2017-01-23 08:32 | PROGRESS NOTE: IM APSO ---
Assessment and Plan - Date of Encounter Date of Encounter: 01/23/17 (1) Compression fracture Status: Acute Assessment and plan: Prior compression fracture at T10 and now with a new compression fracture at L2. Admitted to swing bed for ongoing pain control and rehabilitation. Not a candidate for kyphoplasty considering age and comorbidities. Working with physical therapy. Occupational therapy has signed off. Using a thoracic brace with tolerance and some success. Treatment regimen including brace, Tylenol, oxycodone, Lidoderm, calcitonin. Continue calcitonin. Anticipate transition to bisphosphonate in 2 months. With pain exacerbation 2 days ago, he did not go home as planned. We will see how he does today. May be able to go home over the weekend or on Thursday. Current Visit: Yes (2) Nausea without vomiting Status: Resolved Assessment and plan: Laboratory studies unremarkable other than worsened renal function which has now improved with gentle IV fluids. Nausea has resolved. Current Visit: Yes (3) Coronary artery disease Status: Chronic Assessment and plan: Remains on appropriate cardiac regimen including beta brett, aspirin, warfarin. Statin therapy currently being held in the setting of PMR. Will plan to restart statin therapy once more medically stable. Current Visit: No (4) CHF (congestive heart failure), NYHA class IV Status: Chronic Assessment and plan: Not significantly changed from baseline. Remains on beta brett and diuretic therapy. Low O2 requirement. Current Visit: Yes (5) Atrial fibrillation Status: Chronic Assessment and plan: Stable on amiodarone, metoprolol, warfarin. INR is therapeutic. Warfarin restarted today. Reassess INR Thursday. Current Visit: Yes (6) Aortic stenosis Status: Chronic Current Visit: No (7) Mitral stenosis Status: Chronic Current Visit: No (8) CKD (chronic kidney disease), stage III Status: Chronic Assessment and plan: Worsened 2 days ago with nausea and poor oral intake. Gentle IV fluids given at that time. Creatinine now back below 2. Oral intake encouraged. Current Visit: Yes (9) History of SBE (subacute bacterial endocarditis) Status: Resolved Assessment and plan: No evidence of recurrence. Now off of antibiotic therapy. Follow clinically. Current Visit: No (10) DVT prophylaxis Status: Acute Assessment and plan: Fully anticoagulated with Coumadin. Current Visit: Yes - Time Spent With Patient Total time spent with greater than 50% in coordination of care (as documented) at patient's floor/unit and/or counseling patient: less than 15 minutes Estimated anticipated discharge: Early next week. IM: PN Subjective General: no anxiety, no depression (discouraged), no fever, no chills Cardiovascular: no chest pain, no palpitations Respiratory: no cough, no wheeze, no SOB Gastrointestinal: no abdominal pain, no nausea, no vomiting, no diarrhea Genitourinary: no dysuria Musculoskeletal: pain (significant worsening 2 days ago, a bit better today) Integumentary: dryness, wound (LUE skin tear from near fall last week) Neurological: limb weakness (diffuse, bilateral lower extremities more than upper extremities), no numbness, no tingling IM: PN Objective Exam - I&O/Vital Signs I&O: Intake & Output 01/22/17 01/23/17 01/23/17 21:59 05:59 13:59 Intake Total 986 100 Output Total 400 200 Balance 586 -100 Intake: Oral 986 100 Output: Urine 400 200 Other: Urine Appearance Clear Clear Urine Color Yellow Light Carmenza Voiding Method Toilet Urinal Vital Signs: Last Vital Signs Temp 36.4 C L 01/23/17 04:58 Pulse 65 01/23/17 04:58 Resp 18 01/23/17 04:58 BP 127/66 01/23/17 04:58 Pulse Ox 92 01/23/17 04:58 Oxygen Flow Rate 2 Oxygen Delivery Method Nasal Cannula - Constitutional General appearance: Present: thin. Absent: acute distress - Head Head exam: Present: atraumatic - Eye Eye exam: Absent: scleral icterus - Respiratory Respiratory exam: Present: decreased breath sounds, rales (right greater than left base). Absent: respiratory distress, rhonchi, wheezes - Cardiovascular Cardiovascular exam: Present: RRR, systolic murmur (crescendo/decrescendo, harsh ). Absent: S3 - GI/Abdominal GI/Abdominal exam: Present: distended (mild), normal bowel sounds, soft. Absent : firm, organomegaly, rebound, rigid, tenderness - Extremities Exam Extremities exam: Present: edema (trace). Absent: calf tenderness - Neurological Exam Neurological exam: Present: oriented X3 - Psychiatric Psychiatric exam: Present: flat affect. Absent: anxious - Skin Skin exam: Present: dry, other (dressing in place LUE). Absent: rash - Allied Health Notes Allied health notes reviewed: nursing, OT, PT - Lab Labs: Laboratory Last Values WBC 8.8 X 10^3uL (3.9-10.7) 01/21/17 12:40 RBC 3.83 X 10^6uL (4.20-6.10) L 01/21/17 12:40 Hgb 11.7 g/dL (14.0-18.0) L 01/21/17 12:40 Hct 35.0 % (42.0-54.0) L 01/21/17 12:40 MCV 91.4 fL (80.0-100.0) 01/21/17 12:40 MCH 30.7 pg (29.0-35.0) 01/21/17 12:40 MCHC 33.6 g/dL (32.0-36.0) 01/21/17 12:40 RDW 15.9 % (11.5-14.5) H 01/21/17 12:40 Plt Count 257 X 10^3uL (130-440) 01/21/17 12:40 MPV 8.6 fL (7.4-10.4) 01/21/17 12:40 Neutrophils % 79.1 % (54.0-75.0) H 01/21/17 12:40 Lymphocytes % 10.1 % (20.0-40.0) L 01/21/17 12:40 Eosinophils % 0.6 % (0.0-6.0) 01/21/17 12:40 Basophils % 0.7 % (0.0-2.0) 01/21/17 12:40 Neutrophils # 6.9 X 10^3uL (2.6-6.7) H 01/21/17 12:40 Lymphocytes # 0.9 X 10^3uL (0.8-3.8) 01/21/17 12:40 Monocytes 9.5 % (2.0-10.0) 01/21/17 12:40 Monocytes # 0.8 X 10^3uL (0.2-1.0) 01/21/17 12:40 Eosinophils # 0.1 X 10^3uL (0.0-0.4) 01/21/17 12:40 Basophils # 0.1 X 10^3uL (0.0-0.1) 01/21/17 12:40 PT 26.6 sec (13.0-16.6) H 01/13/17 07:50 Capillary INR 2.3 (0.8-1.2) H D 01/21/17 05:45 INR 1.7 01/13/17 07:50 Sodium 138 mmol/L (137-145) 01/22/17 05:35 Potassium 3.9 mmol/L (3.5-5.1) 01/22/17 05:35 Chloride 106 mmol/L (98-107) 01/22/17 05:35 Carbon Dioxide 22 mmol/L (22-30) 01/22/17 05:35 BUN 35 mg/dL (9-20) H 01/22/17 05:35 Creatinine 1.8 mg/dL (0.7-1.3) H 01/22/17 05:35 GFR Calculation Not Reportable 01/22/17 05:35 Glucose 81 mg/dL (70-100) 01/22/17 05:35 Calcium 9.2 mg/dL (8.4-10.2) 01/22/17 05:35 Magnesium 2.0 mg/dL (1.6-2.3) 01/13/17 07:50 Total Bilirubin 0.8 mg/dL (0.2-1.3) 01/21/17 12:40 AST 41 U/L (17-59) 01/21/17 12:40 ALT 33 U/L (21-72) 01/21/17 12:40 Alkaline Phosphatase 158 U/L (38-126) H 01/21/17 12:40 Total Protein 7.0 g/dL (6.3-8.2) 01/21/17 12:40 Albumin 3.8 g/dL (3.5-5.0) 01/21/17 12:40 Albumin/Globulin Ratio 1.2 01/21/17 12:40 Lipase 86 U/L (23-300) 01/21/17 12:40 Urine Color Yellow 01/22/17 17:15 Urine Appearance Clear 01/22/17 17:15 Urine pH 5.0 (5-7) 01/22/17 17:15 Ur Specific [place] 1.010 (0.001-1.035) 01/22/17 17:15 Urine Protein Negative (NEG - TRACE) 01/22/17 17:15 Urine Ketones Negative (NEGATIVE) 01/22/17 17:15 Urine Blood Negative (NEGATIVE) 01/22/17 17:15 Urine Nitrate Negative (NEGATIVE) 01/22/17 17:15 Urine Bilirubin Negative (NEGATIVE) 01/22/17 17:15 Urine Urobilinogen 0.2mg/dl (normal) (NEG-1mg/dL) 01/22/17 17:15 Ur Leukocyte Esterase Negative (NEGATIVE) 01/22/17 17:15 Urine RBC None seen (0-5/hpf) 01/22/17 17:15 Urine WBC None seen (0-4/hpf) 01/22/17 17:15 Ur Squamous Epith Cells None seen (<= 15/hpf) 01/22/17 17:15 Urine Bacteria None seen (<10/hpf) 01/22/17 17:15 Urine Mucus None seen (Up to 25%) 01/22/17 17:15 Urine Glucose Normal (NEGATIVE) 01/22/17 17:15 (3) Coronary artery disease Qualifiers: Coronary Disease-Associated Artery/Lesion type: [place] artery [place] vs. transplanted heart: [place] heart Associated angina: without angina Qualified Code(s): I25.10 - Atherosclerotic heart disease of [place] coronary artery without angina pectoris (4) CHF (congestive heart failure), NYHA class IV Qualifiers: Congestive heart failure type: systolic Congestive heart failure chronicity: chronic Qualified Code(s): I50.22 - Chronic systolic (congestive) heart failure (5) Atrial fibrillation Qualifiers: Atrial fibrillation type: paroxysmal (6) Aortic stenosis Qualifiers: Cardiac valve disease etiology: etiology unspecified (7) Mitral stenosis Qualifiers: Cardiac valve disease etiology: etiology unspecified 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
[2017-01-23] MEDS: PROBIOTIC 1 CAP CAPSULE PO SCH (08:50)
[2017-01-23] MEDS: ACETAMINOPHEN ER 650 MG TAB.SR.8HR PO SCH ×2 (08:50→11:51)
[2017-01-23] MEDS: POTASSIUM CHLORIDE 8 MEQ PO SCH (08:50)
[2017-01-23] MEDS: metoprolol SUCC ER 25 MG TABLET PO SCH (08:50)
[2017-01-23] MEDS: FAMOTIDINE 20 MG TABLET PO SCH (08:50)
[2017-01-23] MEDS: FUROSEMIDE 20 MG TABLET PO SCH (08:50)
[2017-01-23] MEDS: REMOVE PATCH 1 PATCH PATCH TRANSDERM SCH (08:52)
[2017-01-23] MEDS: predniSONE 5 MG TABLET PO SCH (11:51)
[2017-01-23] MEDS: CALCITONIN,SALMON 1 SPRAY BOTTLE NASAL SCH (11:51)
--- NOTE | 2017-01-23 14:02 | DC SUMMARY: IM Note ---
Discharge Summary: IM/Peds Provider: Date of Admission: 01/09/17 Admitting Provider: KARYN LORA MD Attending Provider: MARIA G PRETTY MD Discharging Provider: MARIA G PRETTY MD Primary Care Provider: Discharge Date: 01/23/17 Consults: 01/20/17 13:32 Podiatry Consult [CONS] Routine Reason: Nail care. On warfarin. - Diagnosis (1) Compression fracture Status: Acute (2) Nausea without vomiting Status: Resolved (3) Coronary artery disease Status: Chronic Qualifiers: Coronary Disease-Associated Artery/Lesion type: [place] artery [place] vs. transplanted heart: [place] heart Associated angina: without angina Qualified Code(s): I25.10 - Atherosclerotic heart disease of [place] coronary artery without angina pectoris (4) CHF (congestive heart failure), NYHA class IV Status: Chronic Qualifiers: Congestive heart failure type: systolic Congestive heart failure chronicity : chronic Qualified Code(s): I50.22 - Chronic systolic (congestive) heart failure (5) Atrial fibrillation Status: Chronic Qualifiers: Atrial fibrillation type: paroxysmal (6) Aortic stenosis Status: Chronic Qualifiers: Cardiac valve disease etiology: etiology unspecified (7) Mitral stenosis Status: Chronic Qualifiers: Cardiac valve disease etiology: etiology unspecified 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 (8) CKD (chronic kidney disease), stage III Status: Chronic (9) History of SBE (subacute bacterial endocarditis) Status: Resolved (10) DVT prophylaxis Status: Acute Hospital Course: As documented, patient admitted for pain control and rehabilitation. Treated with activity modification, rest, thoracic brace, oral analgesics including Tylenol and oxycodone, nasal calcitonin, and lidocaine topical patch. He worked with physical therapy and occupational therapy with general progress over the course of his swing bed stay. He did have exacerbations in association with a near fall and with a startling episode but was able to regain lost ground and continue to improve. Ultimately, felt appropriate for discharge to home with home health care, physical therapy, and Occupational Therapy. His 2 daughters will be staying with him temporarily. I spent considerable time discussing with the patient, his , and his daughters his tenuous medical balance, in the setting of his age and comorbidities. We will continue to discuss. With regard to other issues, he has osteoporosis. He is now on calcitonin and will be transitioned to a bisphosphonate in the outpatient setting. From a cardiac standpoint, he was stable throughout hospitalization and continued on his usual medicines including amiodarone, beta blockade, diuretic, and warfarin. From a renal standpoint, he was relatively stable. He did have, with pain exacerbation, decreased oral intake with some mild nausea 2 days before discharge. With this, his creatinine increased to 2.4. However, this responded to gentle IV fluids and was approaching his baseline the day after. He was continued on anticoagulation and doses were adjusted based upon INRs. He was not on antibiotic therapy, and there is no evidence of recurrence of infection (recent subacute bacterial endocarditis). The plan at this point is discharg home. Home therapy as above. Analgesia as above. In the event of exacerbations, attempt at management at home but may ultimately require ER visit again. If he continues to have exacerbations which cannot be managed at home, we may need to consider [facility] facility. - Time Spent with Patient Total time spent providing and/or coordinating discharge services: Time with patient DS: Greater than 30 minutes Specific discharge activities: No bending, lifting, twisting. 5 pound weight limit. Discharge - Patient/Caregiver Discharge Instructions Activity Level: High fall risk. Restrictions as above. Use walker with ambulation. Diet: As tolerated. Additional Instructions: Use back brace as directed by physical therapy. Follow up: CHERELLE ENRIQUE DPM [DPM] - 01/22/17 9:00 am MARIA G PRETTY MD [Primary Care Provider] - 2 Weeks Overall discharge status: patient is progressing back to baseline Print Language: KHMER Home Medications: oxyCODONE HCL IR [Oxy Ir*] 2.5 - 5 mg PO Q4H PRN #30 tab PRN Reason: Pain, Severe Able To Take Po Orders: Home Health Care Location: Determined By Patient Disposition: HOME HEALTH CARE Discharge Summary Data - Medication History Medication History: Home Medications Potassium Chloride 8 meq PO DAILY 09/18/16 aspirin [Ecotrin] 81 mg PO HS 09/18/16 metoprolol TARTRATE [Metoprolol Tartrate*] 25 mg PO 1200,209909/18/16 Amiodarone HCl [Cordarone*] 200 mg PO HS 01/05/17 Calcitonin,[employer] [Fortical*] 1 spray NASAL DAILY@1200 01/05/17 Famotidine [Pepcid] 20 mg PO 0900,1800 01/05/17 Ferrous Sulfate [Ferrous Sulfate*] 325 mg PO DAILY@1800 01/05/17 Lidocaine 5% [Lidoderm 5%*] 1 patch TOPICAL DAILY 01/05/17 Polyethylene Glycol 3350 [Miralax*] 1 packet PO HS PRN 01/05/17 predniSONE [Deltasone*] 5 mg PO DAILY@1200 01/05/17 Furosemide [Lasix*] 40 mg PO DAILY 01/07/17 Acetaminophen ER [Tylenol ER*] 650 mg PO WITH LUNCH 01/23/17 Warfarin Sodium [Coumadin*] 1 mg PO SuTuWeFrSa@159901/23/17 Warfarin Sodium [Coumadin*] 2 mg PO MoTh@159901/23/17 oxyCODONE HCL IR [Oxy Ir*] 2.5 - 5 mg PO Q4H PRN #30 tab 01/23/17 Inpatient Medications 01/09/17 20:42 oxyCODONE HCL IR [Oxy Ir] 2.5 mg PO Q3H PRN 01/09/17 21:00 Amiodarone HCl [Cordarone] 200 mg PO HS Lidocaine 5% [Lidoderm 5%] 1 patch TOPICAL HS aspirin EC [Ecotrin 81 mg] 81 mg PO HS oxyCODONE HCL IR [Oxy Ir] 5 mg PO HS 01/09/17 22:03 Acetaminophen ER [Tylenol ER] 1,300 mg PO BID 01/10/17 09:00 Famotidine [Pepcid] 20 mg PO 0900,1799 Furosemide [Lasix] 40 mg PO DAILY Probiotic [Sophia-Q Capsule] 1 cap PO DAILY Remove Patch [Patch Removal] 1 patch TRANSDERM DAILY 01/10/17 12:00 Acetaminophen ER [Tylenol ER] 650 mg PO WITH LUNCH Calcitonin,[employer] [Fortical] 1 spray NASAL DAILY@1200 predniSONE [Deltasone] 5 mg PO DAILY@1200 01/10/17 18:00 Ferrous Sulfate 325 mg PO DAILY@1800 01/11/17 09:00 Non-Formulary Medication 8 PO DAILY metoprolol SUCC ER [topROL XL] 12.5 mg PO DAILY 01/14/17 12:21 Polyethylene Glycol 3350 [miraLAX] 17 gm PO BID PRN 01/14/17 18:37 Bisacodyl [Dulcolax] 10 mg RECTAL PRN PRN 01/14/17 18:58 Ondansetron Odt [Zofran Odt] 4 mg PO Q6H PRN 01/22/17 16:00 Warfarin Sodium [Coumadin] 2 mg PO MoTh@1600 01/23/17 16:00 Warfarin Sodium [Coumadin] 1 mg PO SuTuWeFrSa@1600 Procedures and tests throughout hospitalization: Completed Lab Orders 01/11/17 06:05 Finger Stick INR [INR W/ CAPI DRAW] [HEM] Routine 01/11/17 09:21 UA W/ MICRO -CULTURE IF IND [URINE] Routine 01/12/17 06:30 BMP [BASIC METABOLIC PANEL] [CHEM] AMDRAW PROTIME/INR [HEM] AMDRAW 01/13/17 07:50 BMP [BASIC METABOLIC PANEL] [CHEM] AMDRAW CBC AUTO DIF, MDIF/RMOR IF IND [HEM] AMDRAW PROTIME/INR [HEM] AMDRAW mg [MAGNESIUM] [CHEM] AMDRAW 01/14/17 06:35 Finger Stick INR [INR W/ CAPI DRAW] [HEM] AMDRAW 01/16/17 05:45 BMP [BASIC METABOLIC PANEL] [CHEM] AMDRAW CBC AUTO DIF, MDIF/RMOR IF IND [HEM] AMDRAW INR W/O CAPI DRAW [HEM] Stat 01/19/17 06:00 Finger Stick INR [INR W/ CAPI DRAW] [HEM] AMDRAW 01/20/17 05:07 Finger Stick INR [INR W/ CAPI DRAW] [HEM] AMDRAW 01/21/17 05:45 Finger Stick INR [INR W/ CAPI DRAW] [HEM] AMDRAW 01/21/17 11:40 ua /c m [UA W/ MICRO -CULTURE IF IND] [URINE] Urgent 01/21/17 12:40 CBC AUTO DIF, MDIF/RMOR IF IND [HEM] Stat COMPREHENSIVE METABOLIC PANEL [CHEM] Stat LIPASE [CHEM] Stat 01/22/17 05:35 BMP [BASIC METABOLIC PANEL] [CHEM] AMDRAW 01/23/17 08:32 Finger Stick INR [INR W/ CAPI DRAW] [HEM] Routine Pending Orders 01/09/17 19:55 Activity: Ambulate with Assist TID Activity: BRP w/ Assist Only . Cleanse minor skin tears w/NS Resuscitation Status Routine Titrate Oxygen TITRATE B/W 90-95% Vital Signs QSHIFT VS Wedge cushion for positioning PRN 01/09/17 19:56 Admit: Swing Bed Routine Physical Therapy Eval and Treatment [PT] Routine 01/09/17 19:59 Cover minor skin tears with 01/09/17 20:02 VTE Prophylaxis Scoring/ Ordering Routine 01/09/17 20:42 oxyCODONE HCL IR [Oxy Ir] 2.5 mg PO Q3H PRN 01/09/17 21:00 Amiodarone HCl [Cordarone] 200 mg PO HS Lidocaine 5% [Lidoderm 5%] 1 patch TOPICAL HS aspirin EC [Ecotrin 81 mg] 81 mg PO HS oxyCODONE HCL IR [Oxy Ir] 5 mg PO HS 01/09/17 22:03 Acetaminophen ER [Tylenol ER] 1,300 mg PO BID 01/09/17 Dinner Cardiac [DIET] 01/10/17 09:00 Famotidine [Pepcid] 20 mg PO 0900,1800 Furosemide [Lasix] 40 mg PO DAILY Probiotic [Sophia-Q Capsule] 1 cap PO DAILY Remove Patch [Patch Removal] 1 patch TRANSDERM DAILY 01/10/17 12:00 Acetaminophen ER [Tylenol ER] 650 mg PO WITH LUNCH Calcitonin,[employer] [Fortical] 1 spray NASAL DAILY@1200 predniSONE [Deltasone] 5 mg PO DAILY@1200 01/10/17 18:00 Ferrous Sulfate 325 mg PO DAILY@1800 01/11/17 09:00 Non-Formulary Medication 8 PO DAILY metoprolol SUCC ER [topROL XL] 12.5 mg PO DAILY 01/12/17 10:15 ot [Occupation Therapy Eval and Treat] [OT] Routine 01/12/17 13:50 Occupational Therapy Plan of Care [OT] Routine 01/14/17 12:21 Polyethylene Glycol 3350 [miraLAX] 17 gm PO BID PRN 01/14/17 18:37 Bisacodyl [Dulcolax] 10 mg RECTAL PRN PRN 01/14/17 18:58 Ondansetron Odt [Zofran Odt] 4 mg PO Q6H PRN 01/20/17 13:32 Podiatry Consult [CONS] Routine 01/21/17 12:00 Hemoccult [OCCULT BLOOD (1-3 SAMPLES)] [RM] 01/22/17 16:00 Warfarin Sodium [Coumadin] 2 mg PO MoTh@1600 01/23/17 16:00 Warfarin Sodium [Coumadin] 1 mg PO SuTuWeFrSa@1600 Labs on day of discharge: Labs from last 24 hours 01/23/17 01/22/17 08:32 17:15 Capillary INR 2.3 H Urine Color Yellow Urine Appearance Clear Urine pH 5.0 Ur Specific [place] 1.010 Urine Protein Negative Urine Ketones Negative Urine Blood Negative Urine Nitrate Negative Urine Bilirubin Negative Urine Urobilinogen 0.2mg/dl (normal) Ur Leukocyte Esterase Negative Urine RBC None seen Urine WBC None seen Ur Squamous Epith Cells None seen Urine Bacteria None seen Urine Mucus None seen Urine Glucose Normal IM: Discharge Physical Exam - I&O/Vital Signs I&O: Intake & Output 01/22/17 01/23/17 01/23/17 21:59 05:59 13:59 Intake Total 986 100 Output Total 400 200 Balance 586 -100 Intake: Oral 986 100 Output: Urine 400 200 Other: Urine Appearance Clear Clear Clear Urine Color Yellow Light Carmenza Light Carmenza Voiding Method Toilet Urinal Toilet Vital Signs: Last Vital Signs Temp 36.4 C L 01/23/17 04:58 Pulse 65 01/23/17 04:58 Resp 18 01/23/17 09:00 BP 127/66 01/23/17 04:58 Pulse Ox 92 01/23/17 09:00 Oxygen Flow Rate 2 Oxygen Delivery Method Nasal Cannula - Constitutional General appearance: Present: thin. Absent: acute distress - Head Head exam: Present: atraumatic - Eye Eye exam: Absent: scleral icterus - ENT ENT exam: Present: mucous membranes moist - Respiratory Respiratory exam: Present: decreased breath sounds, rales (right greater than left base). Absent: respiratory distress, rhonchi, wheezes - Cardiovascular Cardiovascular exam: Present: RRR, systolic murmur (crescendo/decrescendo, harsh ). Absent: S3 - GI/Abdominal GI/Abdominal exam: Present: distended (mild), normal bowel sounds, soft. Absent : firm, organomegaly, rebound, rigid, tenderness - Extremities Exam Extremities exam: Present: edema (trace). Absent: calf tenderness - Back Exam Back exam: Present: other (thoracic brace in place) - Neurological Exam Neurological exam: Present: oriented X3 - Psychiatric Psychiatric exam: Present: flat affect. Absent: anxious - Skin Skin exam: Present: dry, other (dressing in place LUE). Absent: rash - Allied Health Notes Allied health notes reviewed: nursing, OT, PT
[2017-01-23] MEDS ORDERED: WARFARIN SODIUM 2 MG TABLET PO SCH (16:00)
== END 2017-01-23 14:04 | disposition home health service (06) | DRG 560 ==
LOC: UNDOADMIN 17:50 → IN 17:50
PROVIDERS: ADMIT Family Medicine; ATTEND Internal Medicine
DX: M80.08XD Age-related osteoporosis with current pathological fracture, vertebra(e), subsequent encounter for fracture with routine healing (principal); R11.2 Nausea with vomiting, unspecified; M10.9 Gout, unspecified; M35.3 Polymyalgia rheumatica; I50.9 Heart failure, unspecified; M81.0 Age-related osteoporosis without current pathological fracture; I50.32 Chronic diastolic (congestive) heart failure; E78.5 Hyperlipidemia, unspecified; I48.2 Chronic atrial fibrillation; I25.10 Atherosclerotic heart disease of native coronary artery without angina pectoris; D50.9 Iron deficiency anemia, unspecified; N18.9 Chronic kidney disease, unspecified; I12.9 Hypertensive chronic kidney disease with stage 1 through stage 4 chronic kidney disease, or unspecified chronic kidney disease; G50.0 Trigeminal neuralgia; K59.00 Constipation, unspecified; J98.4 Other disorders of lung; Z79.899 Other long term (current) drug therapy; Z99.81 Dependence on supplemental oxygen
CPT/HCPCS: 36415; 80048; 80053; 81001; 83690; 83735; 85025; 85610; 94760; J7512